=== PATIENT | female | born 1930 | race Caucasian/White ===

== ENCOUNTER 2017-09-04 13:28 | Inpatient (IN) | payer MEDICARE, OTHER ==
[2017-09-04 13:42] VITALS: BMI 23.6
--- NOTE | 2017-09-04 14:34 | PDOC ---
History of Present Illness - General Chief Complaint: Diarrhea Stated Complaint: WEAKNESS/DIARRHEA Time Seen by Provider: 09/04/17 13:36 - History of Present Illness Initial Comments: 09/04/17 14:28 The patient is an 86 year old female with a history of pulmonary HTN, HTN, alzheimer's disease, anemia, who presents for evaluation from an assisted living facility for increased weakness, lethargy and diarrhea. Due to the patient's dementia and hearing impairment, she is a difficult historian. Per EMS, the patient has been having diarrhea over the past 2 days. She began experiencing worsening weakness and appearing more lethargic and nausea and an episode of non-bilious, non-bloody vomiting per the facility today prompting them to call EMS for presentation to the ED for evaluation. The patient denies any fevers, chills, chest pain, SOB, or abdominal pain. Past History - Past Medical History Allergies/Adverse Reactions: Allergies Allergy/AdvReac Type Severity Reaction Status Date / Time Penicillins Allergy Intermediate Hives Verified 09/04/17 13:41 Sulfa (Sulfonamide Allergy Rash Verified 09/04/17 13:41 Antibiotics) Home Medications: Ambulatory Orders Amlodipine Besylate 5 mg PO DAILY 09/04/17 Ammonium Lactate Cream [Lac-Hydrin 12% *Cream*] 1 applic TP BID 09/04/17 Aspirin [ASA -] 81 mg PO DAILY 09/04/17 Donepezil HCl [Aricept -] 10 mg PO DAILY 09/04/17 Dorzolamide HCl [Trusopt 2%] 1 drop OU BID 09/04/17 Fluticasone Prop 0.05% Nasal [Flonase -] 1 - 2 spray NS DAILY 09/04/17 Furosemide 20 mg PO DAILY 09/04/17 Latanoprost 1 drop OP HS 09/04/17 Losartan Potassium 100 mg PO DAILY 09/04/17 Mirtazapine 15 mg PO HS 09/04/17 Potassium Chloride 20 meq PO DAILY 09/04/17 Risperidone 0.5 mg PO HS 09/04/17 Simvastatin 20 mg PO HS 09/04/17 Anemia: Yes Asthma: No Cancer: No Cardiac Disorders: No CVA: No COPD: No CHF: No Dementia: Yes (alzheimers) Diabetes: No GI Disorders: No Disorders: Yes (UTI) HTN: Yes Hypercholesterolemia: Yes Liver Disease: No Seizures: No Thyroid Disease: No - Surgical History Abdominal Surgery: Yes Appendectomy: Yes Cardiac Surgery: No Cholecystectomy: No Lung Surgery: No Neurologic Surgery: No Orthopedic Surgery: No - Suicide/Smoking/Psychosocial Hx Smoking History: Never smoked Have you smoked in the past 12 months: No Number of Cigarettes Smoked Daily: 0 If you are a former smoker, when did you quit?: 1939 Information on smoking cessation initiated: No Hx Alcohol Use: No Drug/Substance Use Hx: No Substance Use Type: Alcohol Hx Substance Use Treatment: No Review of Systems - Review of Systems Comments:: 09/04/17 14:34 Constitutional: Fatigue, lethargy. No fevers, chills, malaise HEENT: No Rhinorrhea, nasal congestion, visual changes Cardiovascular: No chest pain, syncope, palpitations, lightheadedness Respiratory: No Cough, SOB, Hemoptysis, Gastrointestinal: Nausea, Vomiting Diarrhea. No Abdominal pain, Constipation, Melena Genitourinary: No Dysuria, Frequency, Urgency, Hesitancy, Hematuria, Flank pain Musculoskeletal: No Myalgia, arthralgia Skin: No rashes, bruising, pallor Neurologic: No Headache, Dizziness, Numbness, Weakness, or Tingling *Physical Exam - Vital Signs Last Vital Signs Temp Pulse Resp BP Pulse Ox 98.6 F 89 18 155/77 96 09/04/17 13:33 09/04/17 13:33 09/04/17 13:33 09/04/17 13:33 09/04/17 13:33 - Physical Exam Comments: 09/04/17 14:35 General Appearance: Nourished. No Apparent Distress HEENT: EOMI, ROGER. No Pharyngeal Erythema, Tonsillar Exudate, Tonsillar Erythema Neck: No Cervical Lymphadenopathy Respiratory/Chest: Lungs Clear, Normal Breath Sounds. No Crackles, Rales, Rhonchi, Wheezing Cardiovascular: Regular Rhythm, Regular Rate. No Murmur, Gallops, Rubs Gastrointestinal/Abdominal: Normal Bowel Sounds, Soft. No Guarding, Rebound, Tenderness Musculoskeletal: No CVA Tenderness Extremity: Normal Capillary Refill Integumentary: Normal Color, Dry, Warm Neurologic: Oriented x2 , Alert, Normal Mood/Affect, Normal Response, ED Treatment Course - LABORATORY CBC & Chemistry Diagram: 09/04/17 14:40 09/04/17 14:40 - RADIOLOGY Radiology Studies Ordered: Category Date Time Status CHEST X-RAY PORTABLE* [RAD] Stat Radiology 09/04/17 14:12 Ordered Medical Decision Making - Medical Decision Making 09/04/17 14:38 The patient is an 86 year old female with a history of pulmonary HTN, HTN, alzheimer's disease, anemia, who presents for evaluation from an assisted living facility for increased weakness, lethargy and diarrhea. Differential includes but is not limited to: Infectious gastroenteritis, UTI, sepsis, pneumonia, metabolic derangement. Given the patient's history of diarrhea as well as worsening lethargy, we will obtain a sepsis work up to further evaluate including a cbc, cmp, lactate, troponin, chest plain film, and UA. We will be cautious giving the patient fluids given her history of pulmonary hypertension as well. We will continue to monitor and reassess. 09/04/17 15:59 Cbc, cmp, lactate, troponin, UA, are unremarkable. Chest plain film is unremarkable as read by our radiologist. We discussed the case with the patient 's primary care provider given her negative work up. He state that she is at an assisted living facility and needs to be able to ambulate in order to be sent back to the facility. He is comfortable taking the patient back if she is able to ambulate without difficulty. Otherwise, he believes she should be observed for dehydration. 09/04/17 16:03 We attempted to ambulate the patient and she was unable to ambulate unassisted and we do not feel she is safe to return home at this time. We believe that she requires observation admission for dehydration. We will discuss with the hospitalist team. 09/04/17 16:52 Discussed the case with the hospitalist team who accepted the admission. *DC/Admit/Observation/Transfer Diagnosis at time of Disposition: Dehydration - Discharge Dispostion Condition at time of disposition: Stable Admit: Yes
--- NOTE | 2017-09-04 14:35 | PDOC ---
Attending Attestation - Resident Resident Name: Rahul Haney - ED Attending Attestation I have performed the following: I have examined & evaluated the patient, The case was reviewed & discussed with the resident, I agree w/resident's findings & plan, Exceptions are as noted - HPI HPI: 09/04/17 14:29 86 year old c/ pmh alzheimer's disease, pulmonary hypertension, mitral valve insufficiency, anemia, gout, HLD, glaucoma, 1st degree AV block, hearing loss p/ w diarrhea and nausea/vomiting x 2 days. Denies fevers, but reports some chills. Denies abdominal pain. Pt is from long-term, but noted that she was feeling increasingly more weak and fatigue, and the pt was sent to the ED. - Physicial Exam PE: 09/04/17 14:31 GENERAL: Awake, alert, oriented x 2. in no acute distress. HEAD: No signs of trauma EYES: PERRLA, EOMI, sclera anicteric, conjunctiva clear ENT: Auricles normal inspection, hearing grossly normal, nares patent, oropharynx clear without exudates. NECK: Normal ROM, supple, no lymphadenopathy, JVD, or masses LUNGS: Breath sounds equal, clear to auscultation bilaterally. No wheezes, and no crackles HEART: Regular rate and rhythm, normal S1 and S2, no murmurs, rubs or gallops ABDOMEN: Soft, nontender, normoactive bowel sounds. No guarding, no rebound. No masses EXTREMITIES: Normal range of motion, No clubbing or cyanosis. No cords, erythema, or tenderness. Trace pedal edema b/l NEUROLOGICAL: Cranial nerves II through XII grossly intact. Normal speech, normal gait SKIN: Warm, Dry, normal turgor, no rashes or lesions noted. - Medical Decision Making 09/04/17 14:35 Vital Signs Temp Pulse Resp BP Pulse Ox 98.6 F 89 18 155/77 96 09/04/17 13:33 09/04/17 13:33 09/04/17 13:33 09/04/17 13:33 09/04/17 13:33 86-year-old female sent from long-term for diarrhea and vomiting. Patient likely with GI illness. Differential includes colitis, gastroenteritis. We'll obtain labs. Given her history of pulmonary hypertension, we'll need to be cautious about giving IV fluids. If the patient continues to vomit or diarrhea or has abnormal finding, patient should be mid to the hospital for further evaluation. Heart Score/ECG Review #1 ECG reviewed & interpreted by me at: 14:10 09/04/17 14:39 NSR 87 with 1st degree AV block, left axis deviation, submm STD V5, St and T wave abnormality, LVH (strain pattern?), QTC 507 msec
[2017-09-04 15:03] LABS: BASOPHIL 1.1 % (0-2.0); EOSINOPHIL 2.7 % (0-4.5); MCH 29.1 pg (25.7-33.7); MCHC 33.6 g/dl (32.0-36.0); MEAN CELL VOLUME 86.7 fl (80-96); MEAN PLT VOLUME 8.2 fl (7.5-11.1); NEUTROPHILS 71.2 % (42.8-82.8); PLATELET COUNT 324 K/MM3 (134-434); RDW 14.1 % (11.6-15.6); WHITE BLOOD COUNT 10.4 K/mm3 (4.0-10.0)
[2017-09-04 15:05] LABS: URINE APPEARANCE CLEAR; URINE BILIRUBIN NEGATIVE (NEGATIVE); URINE BLOOD NEGATIVE (NEGATIVE); URINE COLOR STRAW; URINE GLUCOSE (UA) NEGATIVE (NEGATIVE); URINE KETONE NEGATIVE (NEGATIVE); URINE NITRITE NEGATIVE (NEGATIVE); URINE UROBILINOGEN NEGATIVE mg/dL (0.2-1.0)
[2017-09-04 15:07] LABS: URINE PROTEIN 1+ (NEGATIVE)
[2017-09-04 15:08] LABS: URINE MUCUS RARE; URINE RBC <1 /hpf (0-3); URINE WBC 1 /hpf (3-5)
[2017-09-04 15:09] LABS: VENOUS BLOOD GAS HCO3 27.6 meq/L (19-25); VENOUS PH 7.46 (7.32-7.42)
[2017-09-04 15:16] LABS: INR 1.08 (0.82-1.09); PROTHROMBIN TIME (PATIENT) 12.2 SEC (9.98-11.88)
[2017-09-04 15:18] LABS: ACTIVATED PTT 31.2 SECONDS (26.9-34.4)
[2017-09-04 15:27] LABS: ALBUMIN 3.4 g/dl (3.4-5.0); ANION GAP 7 (8-16); BILIRUBIN,TOTAL 0.8 mg/dL (0.2-1.0); CO2 30 mmol/L (21-32); GLUCOSE,RANDOM 102 mg/dL (74-106); SGOT/AST 30 U/L (15-37); SGPT/ALT 31 U/L (12-78); TOT PROT 7.4 g/dl (6.4-8.2)
[2017-09-04 15:30] LABS: ALK PHOS 86 U/L (45-117); CPK 92 IU/L (26-192); TROPONIN I 0.05 ng/ml (0.00-0.05)
[2017-09-04] MEDS ORDERED: SODIUM CHLORIDE 250 ML IV STA (15:32)
[2017-09-04] MEDS ORDERED: PANTOPRAZOLE SODIUM 40 MG in SODIUM CHLORIDE 100 ML IVPB ONE (16:53)
--- NOTE | 2017-09-04 16:54 | PN ---
Physical Exam: SUBJECTIVE: Patient seen and examined OBJECTIVE: Vital Signs Period Temp Pulse Resp BP Sys/Matute Pulse Ox Last 24 Hr 98.6 F-99.6 F 89 18 155/77 96 GENERAL: The patient is awake, alert, and fully oriented, in no acute distress. HEAD: Normal with no signs of trauma. EYES: PERRL, extraocular movements intact, sclera anicteric, conjunctiva clear. No ptosis. ENT: Ears normal, nares patent, oropharynx clear without exudates, moist mucous membranes. NECK: Trachea midline, full range of motion, supple. LUNGS: Breath sounds equal, clear to auscultation bilaterally, no wheezes, no crackles, no accessory muscle use. HEART: Regular rate and rhythm, S1, S2 without murmur, rub or gallop. ABDOMEN: Soft, nontender, nondistended, normoactive bowel sounds, no guarding, no rebound, no hepatosplenomegaly, no masses. EXTREMITIES: 2+ pulses, warm, well-perfused, no edema. NEUROLOGICAL: Cranial nerves II through XII grossly intact. Normal speech, gait not observed. PSYCH: Normal mood, normal affect. SKIN: Warm, dry, normal turgor, no rashes or lesions noted Laboratory Results - last 24 hr 09/04/17 09/04/17 09/04/17 14:40 14:40 14:40 WBC 10.4 H RBC 4.14 Hgb 12.1 Hct 35.9 MCV 86.7 MCH 29.1 MCHC 33.6 RDW 14.1 Plt Count 324 MPV 8.2 Neutrophils % 71.2 Lymphocytes % 17.0 Monocytes % 8.0 Eosinophils % 2.7 Basophils % 1.1 PT with INR 12.20 H INR 1.08 PTT (Actin FS) 31.2 VBG pH POC VBG pCO2 POC VBG pO2 Mixed VBG HCO3 Sodium Potassium Chloride Carbon Dioxide Anion Gap BUN Creatinine Creat Clearance w eGFR Random Glucose Lactic Acid Calcium Total Bilirubin AST ALT Alkaline Phosphatase Creatine Kinase Troponin I Total Protein Albumin Urine Color Straw Urine Appearance Clear Urine pH 6.0 Urine Protein 1+ H Urine Glucose (UA) Negative Urine Ketones Negative Urine Blood Negative Urine Nitrite Negative Urine Bilirubin Negative Urine Urobilinogen Negative Urine RBC <1 Urine WBC 1 Ur Epithelial Cells Rare Urine Mucus Rare Blood Type Antibody Screen 09/04/17 09/04/17 09/04/17 14:40 14:40 14:40 WBC RBC Hgb Hct MCV MCH MCHC RDW Plt Count MPV Neutrophils % Lymphocytes % Monocytes % Eosinophils % Basophils % PT with INR INR PTT (Actin FS) VBG pH POC VBG pCO2 POC VBG pO2 Mixed VBG HCO3 Sodium 143 Potassium 3.4 L Chloride 106 Carbon Dioxide 30 Anion Gap 7 L BUN 18 Creatinine 1.0 Creat Clearance w eGFR 52.45 Random Glucose 102 Lactic Acid 1.1 Calcium 9.0 Total Bilirubin 0.8 AST 30 ALT 31 Alkaline Phosphatase 86 Creatine Kinase 92 Troponin I 0.05 Total Protein 7.4 Albumin 3.4 Urine Color Urine Appearance Urine pH Urine Protein Urine Glucose (UA) Urine Ketones Urine Blood Urine Nitrite Urine Bilirubin Urine Urobilinogen Urine RBC Urine WBC Ur Epithelial Cells Urine Mucus Blood Type O POSITIVE Antibody Screen Negative 09/04/17 14:56 WBC RBC Hgb Hct MCV MCH MCHC RDW Plt Count MPV Neutrophils % Lymphocytes % Monocytes % Eosinophils % Basophils % PT with INR INR PTT (Actin FS) VBG pH 7.46 H POC VBG pCO2 39.8 POC VBG pO2 43.8 Mixed VBG HCO3 27.6 H Sodium Potassium Chloride Carbon Dioxide Anion Gap BUN Creatinine Creat Clearance w eGFR Random Glucose Lactic Acid Calcium Total Bilirubin AST ALT Alkaline Phosphatase Creatine Kinase Troponin I Total Protein Albumin Urine Color Urine Appearance Urine pH Urine Protein Urine Glucose (UA) Urine Ketones Urine Blood Urine Nitrite Urine Bilirubin Urine Urobilinogen Urine RBC Urine WBC Ur Epithelial Cells Urine Mucus Blood Type Antibody Screen Active Medications Generic Name Dose Route Start Last Admin Trade Name Freq PRN Reason Stop Dose Admin Pantoprazole Sodium 40 mg/ 100 mls @ 200 mls/hr 09/04/17 16:53 Sodium Chloride IVPB 09/04/17 17:22 ONCE ONE Sodium Chloride 1,000 mls @ 50 mls/hr 09/04/17 17:00 Normal Saline - IV 09/05/17 16:53 [facility]IR [facility] ASSESSMENT/PLAN:
[2017-09-04] MEDS ORDERED: PANTOPRAZOLE SODIUM 100 ML IVPB ONE (17:08)
[2017-09-04 17:28] LABS: URINE LEUK ESTERASE Negative (NEGATIVE)
[2017-09-04] MEDS: SODIUM CHLORIDE 1,000 ML IV SCH (17:30)
[2017-09-04] MEDS ORDERED: POTASSIUM CHLORIDE ORAL LIQUID 20 MEQ/15 ML PO ONE (18:20)
--- NOTE | 2017-09-04 18:26 | HP ---
CHIEF COMPLAINT: diarrhea, weakness, lethargy PCP: Dr. Ledezma HISTORY OF PRESENT ILLNESS: Patient is an 86 year old female with a significant past medical history of pulmonary HTN, hypertension, HLD, glaucoma, 1st degree AV block, hearing loss alzheimer's disease and anemia. She presents to the ED from her assisted living facility for increased weakness, lethargy and diarrhea. Due to the patient's dementia and hearing impairment, she is not a good historian. Per ED , the patient has been having diarrhea over the past 2 days. She began experiencing worsening weakness and appearing more lethargic and nausea and an episode of non-bilious, non-bloody vomiting per ED notess. The facility then called EMS. The patient denies any fevers, chills, chest pain, SOB, or abdominal pain. ER course was notable for: (1) Trop 0.05 x 1 (2) WBC 10.4 (3) K. 3.4 (4) bilateral lower ext redness right>left, +chills (5) lactic acid 1.1 Recent Travel: PAST MEDICAL HISTORY: pulmonary HTN, hypertension, alzheimer's disease and anemia, 1st degree AV block, hearing loss alzheimer's disease and anemia. PAST SURGICAL HISTORY: Social History: Smoking: n/a Alcohol: n/a Drugs: n/a Family History: Allergies Penicillins Allergy (Intermediate, Verified 09/04/17 13:41) Hives Sulfa (Sulfonamide Antibiotics) Allergy (Verified 09/04/17 13:41) Rash HOME MEDICATIONS: Home Medications Medication Instructions Recorded Amlodipine Besylate 5 mg PO DAILY 09/04/17 Ammonium Lactate Cream [Lac-Hydrin 1 applic TP BID 09/04/17 12% *Cream*] Aspirin [ASA -] 81 mg PO DAILY 09/04/17 Donepezil HCl [Aricept -] 10 mg PO DAILY 09/04/17 Dorzolamide HCl [Trusopt 2%] 1 drop OU BID 09/04/17 Fluticasone Prop 0.05% Nasal 1 - 2 spray NS DAILY 09/04/17 [Flonase -] Furosemide 20 mg PO DAILY 09/04/17 Latanoprost 1 drop OP HS 09/04/17 Losartan Potassium 100 mg PO DAILY 09/04/17 Mirtazapine 15 mg PO HS 09/04/17 Potassium Chloride 20 meq PO DAILY 09/04/17 Risperidone 0.5 mg PO HS 09/04/17 Simvastatin 20 mg PO HS 09/04/17 REVIEW OF SYSTEMS CONSTITUTIONAL: chills, diaphoresis, generalized weakness, malaise, loss of appetite, weight change HEENT: Absent: rhinorrhea, nasal congestion, throat pain, throat swelling, difficulty swallowing, mouth swelling, ear pain, eye pain, visual changes CARDIOVASCULAR: Absent: chest pain, syncope, palpitations, irregular heart rate, lightheadedness , peripheral edema RESPIRATORY: Absent: cough, shortness of breath, dyspnea with exertion, orthopnea, wheezing, stridor, hemoptysis GASTROINTESTINAL: Absent: abdominal pain, constipation, melena, hematochezia GENITOURINARY: Absent: dysuria, frequency, urgency, hesitancy, hematuria, flank pain, genital pain MUSCULOSKELETAL: Absent: myalgia, arthralgia, joint swelling, back pain, neck pain SKIN: Absent: rash, itching, pallor HEMATOLOGIC/IMMUNOLOGIC: Absent: easy bleeding, easy bruising, lymphadenopathy, frequent infections ENDOCRINE: Absent: unexplained weight gain, unexplained weight loss, heat intolerance, cold intolerance NEUROLOGIC: Absent: headache, focal weakness or paresthesias, dizziness, unsteady gait, seizure, mental status changes, bladder or bowel incontinence PSYCHIATRIC: Absent: anxiety, depression, suicidal or homicidal ideation, hallucinations. PHYSICAL EXAMINATION GENERAL: Awake, alert, poor historian 2/2 to alzheimers dementia HEAD: Normal with no signs of trauma. EYES: Pupils equal, round and reactive to light, extraocular movements intact, sclera anicteric, conjunctiva clear. No lid lag. EARS, NOSE, THROAT: Ears normal, nares patent, oropharynx clear without exudates. Moist mucous membranes. NECK: Normal range of motion, supple without lymphadenopathy, JVD, or masses. LUNGS: scattered rhonchi thorughout lung penny, congestion ABDOMEN: Soft, nontender, mildly distended, +bowel sounds, no guarding, no rebound, no masses. No hepatomegaly or splenomegaly. MUSCULOSKELETAL: Normal range of motion at all joints. No bony deformities or tenderness. No CVA tenderness. UPPER EXTREMITIES: 2+ pulses, warm, well-perfused. No cyanosis. No clubbing. No peripheral edema. LOWER EXTREMITIES: +1 edema, RLE hot to touch with redness right lower ext, rule out cellulitis PSYCHIATRIC: Cooperative. Good eye contact. Appropriate mood and affect. ASSESSMENT/PLAN: Patient is an 86 year old female with a significant past medical history of pulmonary HTN, hypertension, HLD, glaucoma, 1st degree AV block, hearing loss alzheimer's disease and anemia. She presents to the ED from her assisted living facility for increased weakness, lethargy and diarrhea. Due to the patient's dementia and hearing impairment, she is not a good historian. Per ED , the patient has been having diarrhea over the past 2 days. She began experiencing worsening weakness and appearing more lethargic and nausea and an episode of non-bilious, non-bloody vomiting per ED notess. The facility then called EMS. The patient denies any fevers, chills, chest pain, SOB, or abdominal pain. She was also noted to have redness of bilateral lower extremities, right > left. Will order Vascular study and consult ID for possible cellulitis. GI: Dehydration secondary to diarrhea episodes/non bilious vomiting/nausea A/P: Patient reported to been having diarrhea over past 2 days, rule out infections process vs. c diff Stool studies, cdiff ordered, ova and parasites Clear liquid diet IV hydration, monitor labs replete electrolytes Zofran q6 scheduled Protonix daily Consider GI consult if symptoms persist Trend troponins ID: Rule out Cellulitis of RLE, acute A/P: Vascular study to rule out DVT ID consult for possible antibiotics Blood and urine cultures pending Cardiology: Pulmonary Hypertension/Hypertension A/P: continue home medications Monitor for fluid overload 1st degree AV block, chronic A/P: continue home medications F.E.N. Fluids NS @ 50cc/hr, cautiously: monitor for fluid overload Electrolyges: hypoK repleted Nutrition: clears Prophylaxis: DVT: Heparin BID GI: Protonix Disposition. Observation. full code. Visit type - Emergency Visit Emergency Visit: Yes ED Registration Date: 09/05/17 Care time: The patient presented to the Emergency Department on the above date and was hospitalized for further evaluation of their emergent condition. - New Patient This patient is new to me today: No - Critical Care Critical Care patient: No
[2017-09-04] MEDS ORDERED: ONDANSETRON 4 MG/2 ML VIAL ONE (19:47)
[2017-09-04] MEDS ORDERED: POTASSIUM CHLORIDE ORAL LIQUID 20 MEQ/15 ML ONE (19:48)
[2017-09-04] MEDS: ONDANSETRON 4 MG/2 ML VIAL IVPB SCH (19:52)
[2017-09-04] MEDS: ATORVASTATIN CA 10 MG TABLET (FP) PO SCH (22:15)
[2017-09-04] MEDS: MIRTAZAPINE 15 MG TABLET (FP) PO SCH (23:30)
[2017-09-04] MEDS: DORZOLAMIDE 2% HCL OPHTHALMIC SOLUTION 10 ML BOTTLE OU SCH (23:30)
[2017-09-04] MEDS: risperiDONE 0.5 MG TABLET (FP) PO SCH (23:30)
[2017-09-04] MEDS: LATANOPROST 0.005% OPHTH SOLN 2.5ML BOTTLE OD SCH (23:30)
[2017-09-05] MEDS: ONDANSETRON 4 MG/2 ML VIAL IVPB SCH ×3 (01:24→13:30)
--- NOTE | 2017-09-05 08:19 | PN ---
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, Physician Chief Complaint: ID Full noted dictated Poor historian - Current Medication List Current Medications: Active Medications Amlodipine Besylate (Norvasc -) 5 mg PO DAILY [facility] Aspirin (Asa -) 81 mg PO DAILY [facility] Atorvastatin Calcium (Lipitor -) 10 mg PO HS [facility] Last Admin: 09/04/17 22:15 Dose: 10 mg Donepezil HCl (Aricept -) 10 mg PO DAILY [facility] Dorzolamide HCl (Trusopt 2%) 1 drop OU BID [facility] Last Admin: 09/04/17 23:30 Dose: 1 drop Fluticasone Propionate (Flonase -) 1 - 2 spray NS DAILY [facility] Sodium Chloride (Normal Saline -) 1,000 mls @ 50 mls/hr IV ASDIR [facility] Stop: 09/05/17 16:53 Last Admin: 09/04/17 17:30 Dose: 50 mls/hr Pantoprazole Sodium 40 mg/ (Sodium Chloride) 100 mls @ 200 mls/hr IVPB DAILY [facility] Latanoprost (Xalatan 0.005% Eye Drops -) 1 drop OD HS [facility] Last Admin: 09/04/17 23:30 Dose: 1 drop Losartan Potassium (Losartan Potassium) 100 mg PO DAILY [facility] Mirtazapine (Remeron -) 15 mg PO HS [facility] Last Admin: 09/04/17 23:30 Dose: 15 mg Ondansetron HCl (Zofran Injection) 4 mg IVPB Q6H [facility] Last Admin: 09/05/17 01:24 Dose: 4 mg Risperidone (Risperdal -) 0.5 mg PO HS [facility] Last Admin: 09/04/17 23:30 Dose: 0.5 mg - Objective Vital Signs: Vital Signs Temperature 96.8 F L 09/05/17 00:30 Pulse Rate 101 H 09/05/17 07:24 Respiratory Rate 16 09/05/17 06:27 Blood Pressure 102/48 09/05/17 07:24 O2 Sat by Pulse Oximetry (%) 96 09/05/17 07:24 Labs: INR, PTT INR 1.08 (0.82-1.09) 09/04/17 14:40 Problem List - Problems (1) Dehydration Code(s): E86.0 - DEHYDRATION (2) Gastroenteritis Code(s): K52.9 - NONINFECTIVE GASTROENTERITIS AND COLITIS, UNSPECIFIED (3) Cellulitis Code(s): L03.90 - CELLULITIS, UNSPECIFIED Assessment/Plan Microbiology Laboratory Tests 09/04/17 09/04/17 14:40 14:40 WBC 10.4 H Hgb 12.1 Plt Count 324 Neutrophils % 71.2 Lymphocytes % 17.0 Eosinophils % 2.7 Creatinine 1.0 Assessment Gastronenteritis Exzema LE Plan No antibiotics IV hydration
[2017-09-05 08:35] LABS: MCH 29.6 pg (25.7-33.7); MCHC 33.3 g/dl (32.0-36.0); MEAN CELL VOLUME 89.1 fl (80-96); MEAN PLT VOLUME 8.8 fl (7.5-11.1); PLATELET COUNT 340 K/MM3 (134-434); RDW 14.3 % (11.6-15.6); WHITE BLOOD COUNT 12.3 K/mm3 (4.0-10.0)
[2017-09-05 08:45] LABS: CALCIUM 8.5 mg/dL (8.5-10.1)
[2017-09-05] MEDS ORDERED: ONDANSETRON 4 MG/2 ML VIAL ONE (08:49)
[2017-09-05 08:55] LABS: ALBUMIN 3.1 g/dl (3.4-5.0); ALK PHOS 84 U/L (45-117); ANION GAP 12 (8-16); BILIRUBIN,TOTAL 0.8 mg/dL (0.2-1.0); CO2 25 mmol/L (21-32); GLUCOSE,RANDOM 148 mg/dL (74-106); MAGNESIUM 1.9 mg/dL (1.8-2.4); PHOSPHOROUS 2.2 mg/dL (2.5-4.9); SGOT/AST 23 U/L (15-37); SGPT/ALT 26 U/L (12-78); TROPONIN I 0.21 ng/ml (0.00-0.05)
[2017-09-05] MEDS: PANTOPRAZOLE SODIUM 40 MG in SODIUM CHLORIDE 100 ML IVPB SCH (09:21)
[2017-09-05] MEDS ORDERED: LOSARTAN POTASSIUM 50 MG TABLET (FP) PO SCH (10:00)
--- NOTE | 2017-09-05 10:04 | CON.CARD ---
Consult Consult Specialty:: Cardiology Referred by:: Hospitalist Medicine Reason for Consultation:: +Trops - History of Present Illness Chief Complaint: Diarrhea History of Present Illness: Patient is an 86 year old female with a significant past medical history of pulmonary HTN, hypertension, HLD, diastolic dysfunction, glaucoma, 1st degree AV block, hearing loss alzheimer's disease and anemia presented to the ED from her assisted living facility for increased weakness, lethargy and diarrhea last 2 days. Due to the patient's dementia and hearing impairment, she is not a good historian. She began experiencing worsening weakness and appearing more lethargic and nausea and an episode of non-bilious, non-bloody vomiting per ED notes. Patient developed T>103 rectally. - History Source History Provided By: Medical Record Limitations to Obtaining History: Dementia - Alcohol/Substance Use Hx Alcohol Use: No - Smoking History Smoking history: Never smoked Have you smoked in the past 12 months: No Aproximately how many cigarettes per day: 0 If you are a former smoker, when did you quit?: 1939 Home Medications - Allergies Allergies/Adverse Reactions: Allergies Allergy/AdvReac Type Severity Reaction Status Date / Time Penicillins Allergy Intermediate Hives Verified 09/04/17 13:41 Sulfa (Sulfonamide Allergy Rash Verified 09/04/17 13:41 Antibiotics) - Home Medications Home Medications: Ambulatory Orders Amlodipine Besylate 5 mg PO DAILY 09/04/17 Ammonium Lactate Cream [Lac-Hydrin 12% *Cream*] 1 applic TP BID 09/04/17 Aspirin [ASA -] 81 mg PO DAILY 09/04/17 Donepezil HCl [Aricept -] 10 mg PO DAILY 09/04/17 Dorzolamide HCl [Trusopt 2%] 1 drop OU BID 09/04/17 Fluticasone Prop 0.05% Nasal [Flonase -] 1 - 2 spray NS DAILY 09/04/17 Furosemide 20 mg PO DAILY 09/04/17 Latanoprost 1 drop OP HS 09/04/17 Losartan Potassium 100 mg PO DAILY 09/04/17 Mirtazapine 15 mg PO HS 09/04/17 Potassium Chloride 20 meq PO DAILY 09/04/17 Risperidone 0.5 mg PO HS 09/04/17 Simvastatin 20 mg PO HS 09/04/17 Review of Systems Unable to obtain ROS, reason: Dementia Vital Signs: Vital Signs Temperature 96.8 F L 09/05/17 00:30 Pulse Rate 101 H 09/05/17 07:24 Respiratory Rate 16 09/05/17 06:27 Blood Pressure 102/48 09/05/17 07:24 O2 Sat by Pulse Oximetry (%) 96 09/05/17 07:24 Constitutional: Yes: No Distress, Calm Neck: Yes: Supple Respiratory: Yes: Regular, Diminished Gastrointestinal: Yes: Normal Bowel Sounds, Soft Cardiovascular: Yes: Regular Rate and Rhythm JVD: No Carotid Bruit: No Heart Sounds: Yes: S1, S2 Murmur: Yes: Systolic Murmur, Grade 1 Edema: No - Other Data Labs, Other Data: CBC, BMP 09/05/17 08:00 09/05/17 08:00 INR, PTT INR 1.08 (0.82-1.09) 09/04/17 14:40 Troponin, BNP 09/05/17 08:00 Troponin I 0.21 H Troponin, BNP 09/05/17 08:00 Troponin I 0.21 H NSR @ 87 1st deg AVB LVH with repol abnl Imaging - Results Chest X-ray: Report Reviewed (NAD, bibasilar ATX) Problem List - Problems (1) Dehydration Code(s): E86.0 - DEHYDRATION (2) Gastroenteritis Code(s): K52.9 - NONINFECTIVE GASTROENTERITIS AND COLITIS, UNSPECIFIED (3) Demand ischemia Code(s): I24.8 - OTHER FORMS OF ACUTE ISCHEMIC HEART DISEASE (4) Dementia in Alzheimer's disease Code(s): G30.9 - ALZHEIMER'S DISEASE, UNSPECIFIED F02.80 - DEMENTIA IN OTH DISEASES CLASSD ELSWHR W/O BEHAVRL DISTURB (5) Hypertensive cardiovascular disease Code(s): I11.9 - HYPERTENSIVE HEART DISEASE WITHOUT HEART FAILURE (6) Hyperlipidemia Code(s): E78.5 - HYPERLIPIDEMIA, UNSPECIFIED (7) Diastolic dysfunction without heart failure Code(s): I51.9 - HEART DISEASE, UNSPECIFIED (8) Fever Code(s): R50.9 - FEVER, UNSPECIFIED Qualifiers: Fever type: unspecified Qualified Code(s): R50.9 - Fever, unspecified; R50.9 - Fever, unspecified Assessment/Plan 1. Fever, Gastroenteritis 2. Demand ischemic injury 3. Hypertension 4. Pulmonary hypertension 5. Dementia of Alzheimers Type P:1. IVF, cycle enzymes to document peak 2. Echocardiogram to assess ventricular and valve fxn 3. Continue Norvasc 5 qd, ASA 81 qd, losartan 100 qd, Zocor 20 qhs, hold Lasix 20 qd for now 4. Empiric abx course pending C&S 5. Thank you for consultative opportunity
--- NOTE | 2017-09-05 10:55 | CONS ---
DATE OF CONSULTATION: HISTORY: This is an 86-year-old female with known Alzheimer dementia who I am asked specifically to see for possible cellulitis of the right lower extremity. She has a history of several comorbidities including Alzheimer, pulmonary hypertension, and chronic anemia and lives in an assisted living facility. She cannot give any history and is also hearing impaired, according to the notes. The history indicates that she had come with generalized weakness, lethargy, nausea, and at least 1 episode of vomiting. Mention is also made of diarrhea at the facility over the last 2 days. I am unaware as to whether or not she is on any antibiotics, though her medication list does not indicate any. While she was here, she was noted to have some erythema of her right leg, and a possibility of cellulitis was considered. She has no fever, chills, or other systemic complaints that I can ascertain. PAST MEDICAL HISTORY: As noted above. MEDICATIONS: Amlodipine, Aricept, Lasix, losartan, simvastatin, Risperidone. ALLERGIES: PENICILLIN. SOCIAL HISTORY: Resident of a long-term care facility. Former smoker having given this up many years ago. No alcohol history. FAMILY HISTORY: Unobtainable. REVIEW OF SYSTEMS: Respiratory: No cough or shortness of breath. Cardiac: No chest pain or palpitations. Gastrointestinal: As noted in history of present illness. Genitourinary: No dysuria, hematuria. PHYSICAL EXAMINATION: General: She is an elderly woman. Alert. Unable to answer questions. Vital Signs: Temperature 98.6, pulse 89, respirations 18, blood pressure 155/77. Neck: Supple. Lungs: Clear. Bilateral rhonchi. Heart: S1, S2. Regular rhythm. No audible murmur. Abdomen: Positive bowel sounds. Soft and nontender. No organomegaly. Extremities: No clubbing, cyanosis, or edema. A discrete, macular rash noted on both lower extremities right greater than left. Not warm. Not tender to touch. No wound noted. LABORATORY DATA: White count 10.4, hemoglobin 12.1, platelets 324. Normal differential. BUN 18, creatinine 1. Urinalysis: 1 RBC, 2 WBC. Two sets of blood cultures as of this morning no growth. Chest x-ray with no acute infiltrate. ASSESSMENT: An 86-year-old female with comorbidities including severe Alzheimer dementia with generalized weakness, lethargy, and diarrhea, possible gastroenteritis. Clinically she appears stable. The rash on her lower extremities seems more consistent with an eczema-type rash as opposed to cellulitis. Cultures have been sent, but at this point, I would observe her off of any antibiotic. I appreciate the kind referral. Please contact me for any further questions. RICKI MILLER M.D. [id number]
[2017-09-05] MEDS: DONEPEZIL HCL 10 MG TABLET (FP) PO SCH (11:03)
[2017-09-05] MEDS: DORZOLAMIDE 2% HCL OPHTHALMIC SOLUTION 10 ML BOTTLE OU SCH ×2 (11:04→23:20)
[2017-09-05] MEDS: amLODIPine BESYLATE 5 MG TABLET (FP) PO SCH (11:04)
[2017-09-05] MEDS: ASPIRIN 81 MG CHEWABLE TABLETS PO SCH (11:04)
--- NOTE | 2017-09-05 11:11 | PN ---
Physical Exam: SUBJECTIVE: Patient seen and examined in the cardiac cath awaiting a bed placement on tele. Called by RN after pt developed a fever, now more lethargic and oxygen saturations @ 85% room air overnight. OBJECTIVE: Patient responsive to verbal and tactile stimuli but more lethargic, seizure? CT scan of head ordered/neuro consulted Fever of 103F reported: Order>stat abg, stat chest xray, lactic acid, head CT to rule out stroke, EKG, Tylenol IV for fever. Repeat labs now. Pt trop noted to be 0.21 today, cardiology consulted. Spoke to ID, Vanco 1 gram x 1, cefepime 2gm x 1 for fever. Vital Signs Period Temp Pulse Resp BP Sys/Matute Pulse Ox Last 24 Hr 96.8 F-97.9 F 82-101 16-16 102-148/48-82 96-97 GENERAL: Awake, lethargic, poor historian 2/2 to alzheimers dementia, responsive to tactile stimuli, more lethargic HEAD: Normal with no signs of trauma. EARS, NOSE, THROAT: Ears normal, nares patent, oropharynx clear without exudates. Moist mucous membranes. NECK: Normal range of motion, supple without lymphadenopathy, JVD, or masses. LUNGS: scattered rhonchi thorughout lung penny, congestion ABDOMEN: Soft, nontender, mildly distended, +bowel sounds, no guarding, no rebound, no masses. No hepatomegaly or splenomegaly. MUSCULOSKELETAL: Normal range of motion at all joints. No bony deformities or tenderness. No CVA tenderness. UPPER EXTREMITIES: 2+ pulses, warm, well-perfused. No cyanosis. No clubbing. No peripheral edema. LOWER EXTREMITIES: +1 edema, RLE hot to touch with redness right lower ext, rule out cellulitis NEUROLOGICAL: lethargy Laboratory Results - last 24 hr 09/05/17 09/05/17 08:00 08:00 WBC 12.3 H RBC 4.25 Hgb 12.6 Hct 37.9 MCV 89.1 MCH 29.6 MCHC 33.3 RDW 14.3 Plt Count 340 MPV 8.8 Sodium 142 Potassium 3.5 Chloride 105 Carbon Dioxide 25 Anion Gap 12 BUN 14 D Creatinine 1.0 Creat Clearance w eGFR 52.45 Random Glucose 148 H D Calcium 8.5 Phosphorus 2.2 L Magnesium 1.9 Total Bilirubin 0.8 AST 23 D ALT 26 Alkaline Phosphatase 84 Troponin I 0.21 H Total Protein 7.0 Albumin 3.1 L Active Medications Generic Name Dose Route Start Last Admin Trade Name Gaye PRN Reason Stop Dose Admin Acetaminophen 1,000 mg 09/05/17 11:06 Ofirmev Injection - IVPB 09/05/17 11:07 ONCE ONE Amlodipine Besylate 5 mg 09/05/17 10:00 09/05/17 11:04 Norvasc - PO Not Given DAILY ASTRID Aspirin 81 mg 09/05/17 10:00 09/05/17 11:04 Asa - PO Not Given DAILY ASTRID Atorvastatin Calcium 10 mg 09/04/17 22:00 09/04/17 22:15 Lipitor - PO 10 mg HS ASTRID Administration Donepezil HCl 10 mg 09/05/17 10:00 09/05/17 11:03 Aricept - PO Not Given DAILY ASTRID Dorzolamide HCl 1 drop 09/04/17 22:00 09/05/17 11:04 Trusopt 2% OU 1 drop BID ASTRID Administration Fluticasone Propionate 1 - 2 spray 09/05/17 10:00 Flonase - NS DAILY ASTRID Sodium Chloride 1,000 mls @ 50 mls/hr 09/04/17 17:00 09/04/17 17:30 Normal Saline - IV 09/05/17 16:53 50 mls/hr ASDIR ASTRID Administration Pantoprazole Sodium 40 mg/ 100 mls @ 200 mls/hr 09/05/17 10:00 09/05/17 09:21 Sodium Chloride IVPB 200 mls/hr DAILY ASTRID Administration Latanoprost 1 drop 09/04/17 22:00 09/04/17 23:30 Xalatan 0.005% Eye Drops - OD 1 drop HS ASTRID Administration Losartan Potassium 100 mg 09/05/17 10:00 09/05/17 11:04 Cozaar - PO Not Given DAILY ASTRID Mirtazapine 15 mg 09/04/17 22:00 09/04/17 23:30 Remeron - PO 15 mg HS ASTRID Administration Ondansetron HCl 4 mg 09/04/17 19:00 09/05/17 08:50 Zofran Injection IVPB 4 mg Q6H ASTRID Administration Risperidone 0.5 mg 09/04/17 22:00 09/04/17 23:30 Risperdal - PO 0.5 mg HS ASTRID Administration ASSESSMENT/PLAN: Patient is an 86 year old female with a significant past medical history of pulmonary HTN, hypertension, HLD, glaucoma, 1st degree AV block, hearing loss alzheimer's disease and anemia. She presents to the ED from her assisted living facility for increased weakness, lethargy and diarrhea. Due to the patient's dementia and hearing impairment, she is not a good historian. Per ED , the patient has been having diarrhea over the past 2 days. She began experiencing worsening weakness and appearing more lethargic and nausea and an episode of non-bilious, non-bloody vomiting per ED notess. The facility then called EMS. The patient denies any fevers, chills, chest pain, SOB, or abdominal pain. She was also noted to have redness of bilateral lower extremities, right > left. Will order Vascular study and consult ID for possible cellulitis. ID: Sepsis, unknown source, acute A/P: Sepsis secondary to RLE cellulitis? vs. other source Blood and urine cultures pending Lactic acid within normal limits WBC trended up, then now normalized with repeat labs Patient did not tolerate vascular study yesterday, refused test Fever and tachycardia today, ID made aware, ordered Vancomycin 1 gram and Cefepime 2g x 1 ID following Neuro: Metabolic Encephalopathy likely secondary to fever, sepsis A/P: Patient more lethargic today, able to state name but easily falls back to sleep ABG reviewed, pulmonary consulted Head CT stat ordered and pending Neuro consulted, rule out seizure Pulmonary: Rule out aspiration pneumonia, shortness of breath overnight A/P: As per RN verbal report, pt oxygen levels were 85% room air overnight ABG ordered, reviewed, on 2 liters supplemental oxygen Pulm consulted GI: Dehydration secondary to diarrhea episodes/non bilious vomiting/nausea A/P: Patient reported to been having diarrhea over past 2 days, rule out infections process vs. c diff Stool studies, cdiff ordered, ova and parasites Monitor labs, replete electrolytes Zofran q6 scheduled Protonix daily Consider GI consult if symptoms persist Cardiology: Pulmonary Hypertension/Hypertension A/P: continue home medications Monitor for fluid overload 1st degree AV block, chronic A/P: continue home medications Elevated Troponins A/P: 0.05>0.21, trend 3rd EKG stat, monitor patient on tele Cardiology following F.E.N. Fluids: NPO until mental status improves, then swallow eval Electrolytes: hypoK repleted Nutrition: NPO Prophylaxis: DVT: Heparin BID GI: Protonix Disposition. Observation. full code. Visit type - Emergency Visit Emergency Visit: Yes ED Registration Date: 09/05/17 Care time: The patient presented to the Emergency Department on the above date and was hospitalized for further evaluation of their emergent condition. - New Patient This patient is new to me today: No - Critical Care Critical Care patient: No - Discharge Referral Referred to [facility] No
[2017-09-05] MEDS ORDERED: CEFEPIME HCL 2 GM VIAL (RESTRICTED TO ID) IVPB ONE (11:20)
[2017-09-05] MEDS ORDERED: ACETAMINOPHEN 1000 MG/100 ML VIAL (NON FORMULARY) IVPB ONE (12:30)
[2017-09-05] MEDS ORDERED: PNEUMOC 13-VAL CONJ-DIP CRM/PF 0.5 ML DISP.SYRIN IM ONE ×2 (12:31→23:30)
[2017-09-05] MEDS ORDERED: ACETAMINOPHEN INJECTION 100 ML IVPB ONE (12:40)
[2017-09-05] MEDS ORDERED: VANCOMYCIN 1 GRAM (PRE-DOCKED) 250 ML IVPB ONE (13:00)
[2017-09-05] MEDS ORDERED: CEFEPIME 2 GM in DEXTROSE 5%-WATER - 100 ML IVPB ONE (13:00)
[2017-09-05 13:17] LABS: MCH 28.9 pg (25.7-33.7); MCHC 33.2 g/dl (32.0-36.0); MEAN CELL VOLUME 87.2 fl (80-96); PLATELET COUNT 296 K/MM3 (134-434); RDW 14.1 % (11.6-15.6); WHITE BLOOD COUNT 9.8 K/mm3 (4.0-10.0)
[2017-09-05 13:41] LABS: ALBUMIN 2.7 g/dl (3.4-5.0); ANION GAP 12 (8-16); BILIRUBIN,TOTAL 0.8 mg/dL (0.2-1.0); CALCIUM 7.9 mg/dL (8.5-10.1); CO2 25 mmol/L (21-32); CREATININE 1.1 mg/dL (0.55-1.02); GLUCOSE,RANDOM 137 mg/dL (74-106); SGOT/AST 21 U/L (15-37); SGPT/ALT 25 U/L (12-78); TOT PROT 6.3 g/dl (6.4-8.2)
[2017-09-05 13:42] LABS: ALK PHOS 67 U/L (45-117)
[2017-09-05] MEDS: SODIUM CHLORIDE 1,000 ML IV SCH (14:37)
[2017-09-05 14:38] LABS: TOTAL CELLS COUNTED 100
[2017-09-05 14:39] LABS: METAMYELOCYTE 1 % (0-2); PLATELET ESTIMATE ADEQUATE (NORMAL)
--- NOTE | 2017-09-05 15:58 | CON.NEURO ---
Consult - Alcohol/Substance Use Hx Alcohol Use: No - Smoking History Smoking history: Never smoked Have you smoked in the past 12 months: No Aproximately how many cigarettes per day: 0 If you are a former smoker, when did you quit?: 1939 Home Medications - Allergies Allergies/Adverse Reactions: Allergies Allergy/AdvReac Type Severity Reaction Status Date / Time Penicillins Allergy Intermediate Hives Verified 09/04/17 13:41 Sulfa (Sulfonamide Allergy Rash Verified 09/04/17 13:41 Antibiotics) - Home Medications Home Medications: Ambulatory Orders Amlodipine Besylate 5 mg PO DAILY 09/04/17 Ammonium Lactate Cream [Lac-Hydrin 12% *Cream*] 1 applic TP BID 09/04/17 Aspirin [ASA -] 81 mg PO DAILY 09/04/17 Donepezil HCl [Aricept -] 10 mg PO DAILY 09/04/17 Dorzolamide HCl [Trusopt 2%] 1 drop OU BID 09/04/17 Fluticasone Prop 0.05% Nasal [Flonase -] 1 - 2 spray NS DAILY 09/04/17 Furosemide 20 mg PO DAILY 09/04/17 Latanoprost 1 drop OP HS 09/04/17 Losartan Potassium 100 mg PO DAILY 09/04/17 Mirtazapine 15 mg PO HS 09/04/17 Potassium Chloride 20 meq PO DAILY 09/04/17 Risperidone 0.5 mg PO HS 09/04/17 Simvastatin 20 mg PO HS 09/04/17 Physical Exam-Neuro Vital Signs: Vital Signs Temperature 103.4 F H 09/05/17 11:00 Pulse Rate 120 H 09/05/17 11:00 Respiratory Rate 19 09/05/17 11:00 Blood Pressure 150/73 09/05/17 11:00 O2 Sat by Pulse Oximetry (%) 96 09/05/17 07:24 Labs: CBC, BMP 09/05/17 13:05 09/05/17 13:05 INR, PTT INR 1.08 (0.82-1.09) 09/04/17 14:40 Assessment/Plan cc worsening of mental status HPI 86 year old female history of htn, hyperlipidemia, glaucoma , hearing loss. Patient is able to walk with walker at . she was brought in for right leg redness and swelling. She is very sleepy but aroussable. Spoke to Dr rodrigues , she had been foaming through mouth and there was no witnessed seizures. Patient is moving all etremity and denies any headhace. She has been started on antibiotics. She had fever of 103. Patient has been very sleepy.Patient has suspected diagnosis of parkinson disease but not being treated Ct head is unremarkable, and hospitalist was concern about seizure or stroke a PAST MEDICAL HISTORY: pulmonary HTN, hypertension, alzheimer's disease and anemia, 1st degree AV block, hearing loss alzheimer's disease and anemia. : Allergies Penicillins Allergy (Intermediate, Verified 09/04/17 13:41) Hives Sulfa (Sulfonamide Antibiotics) Allergy (Verified 09/04/17 13:41) Rash HOME MEDICATIONS: Home Medications Medication Instructions Recorded Amlodipine Besylate 5 mg PO DAILY 09/04/17 Ammonium Lactate Cream [Lac-Hydrin 1 applic TP BID 09/04/17 12% *Cream*] Aspirin [ASA -] 81 mg PO DAILY 09/04/17 Donepezil HCl [Aricept -] 10 mg PO DAILY 09/04/17 Dorzolamide HCl [Trusopt 2%] 1 drop OU BID 09/04/17 Fluticasone Prop 0.05% Nasal 1 - 2 spray NS DAILY 09/04/17 [Flonase -] Furosemide 20 mg PO DAILY 09/04/17 Latanoprost 1 drop OP HS 09/04/17 Losartan Potassium 100 mg PO DAILY 09/04/17 Mirtazapine 15 mg PO HS 09/04/17 Potassium Chloride 20 meq PO DAILY 09/04/17 Risperidone 0.5 mg PO HS 09/04/17 Simvastatin 20 mg PO HS 09/04/17 ROS revied in chart Neurological Examination Alert able to follow simple command, she is sleepy and speech is normal eomi, no face asymmetry, eomi and moving all extremity, neck is supple moving all extremity sensation is normal she has right leg swelling and redness and very warm extremity Ct head is unremarkable , showed white matter disease Assessment-- Worsening of mental status , most likely delirium due to high grade fever and underlying dementia. Clinically less likely to be meningitis, stroke or status epilepticus Plan continue antibiotic as per ID - mri of brain and eeg for stroke and less likely to be seizure - if not improving and continue to have fever and delirium consider spinal tap - continue supportive treatment Thank nolan Glaser MD
--- NOTE | 2017-09-05 16:19 | PN ---
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 (short form) - Note 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: PULMONARY CONSULTATION DICTATED 09/05/17 IMP ACUTE HYPOXEMIC RESPIRATORY FAILURE LIKELY ASPIRATION PNEUMONIA ALTERED MENTAL STATUS SECONDARY TO TOXIC METABOLIC ENCEPHALOPATHY GASTROENTERITIS CELLULITIS ALZHEIMERS DEMENTIA PARKINSONS DEHYDRATION PLAN IVF ANTIBIOTICS INHALED BRONCHODILATORS ABG O2 F/U CHEST X-RAY ASPIRATION PRECAUTIONS CULTURES DR REBOLLAR Problem List - Problems (1) Cellulitis Code(s): L03.90 - CELLULITIS, UNSPECIFIED (2) Dehydration Code(s): E86.0 - DEHYDRATION (3) Dementia in Alzheimer's disease Code(s): G30.9 - ALZHEIMER'S DISEASE, UNSPECIFIED F02.80 - DEMENTIA IN OTH DISEASES CLASSD ELSWHR W/O BEHAVRL DISTURB (4) Diastolic dysfunction without heart failure Code(s): I51.9 - HEART DISEASE, UNSPECIFIED (5) Gastroenteritis Code(s): K52.9 - NONINFECTIVE GASTROENTERITIS AND COLITIS, UNSPECIFIED (6) Hyperlipidemia Code(s): E78.5 - HYPERLIPIDEMIA, UNSPECIFIED (7) Acute respiratory failure with hypoxia Code(s): J96.01 - ACUTE RESPIRATORY FAILURE WITH HYPOXIA (8) Pneumonia Code(s): J18.9 - PNEUMONIA, UNSPECIFIED ORGANISM
[2017-09-05 17:03] LABS: ARTERIAL BLD GAS O2 SATURATION 85.1 % (90-98.9); ARTERIAL BLOOD GAS BASE EXCESS 2.4 meq/l (-2-2); ARTERIAL BLOOD GAS HCO3 25.9 meq/L (22-26); ARTERIAL BLOOD GAS PO2 50.8 mmHg (68-100); ARTERIAL BLOOD GAS pH 7.46 (7.35-7.45)
[2017-09-05 17:04] LABS: ALLENS TEST POSITIVE; ART PUNCT SITE LEFT RADIAL; LPM/O2% 3L; PT. ON O2? YES; TYPE OF O2 N/C
[2017-09-05] MEDS ORDERED: KCL 10 MEQ IVPB 100 ML IVPB ONE (18:46)
[2017-09-05] MEDS: KCL 10 MEQ IVPB 100 ML IVPB SCH ×2 (18:54→23:50)
[2017-09-05 21:24] LABS: ALBUMIN 2.8 g/dl (3.4-5.0); ALK PHOS 73 U/L (45-117); ANION GAP 10 (8-16); BILIRUBIN,TOTAL 0.9 mg/dL (0.2-1.0); CALCIUM 8.2 mg/dL (8.5-10.1); CO2 26 mmol/L (21-32); CREATININE 1.3 mg/dL (0.55-1.02); GLUCOSE,RANDOM 175 mg/dL (74-106); SGOT/AST 35 U/L (15-37); SGPT/ALT 26 U/L (12-78); TOT PROT 6.7 g/dl (6.4-8.2)
[2017-09-05] MEDS: ACETAMINOPHEN 1000 MG/100 ML VIAL (NON FORMULARY) IVPB PRN (21:58)
[2017-09-05] MEDS ORDERED: HEPARIN NA (PORCINE) 5,000 UNITS/ML 1ML VIAL SQ SCH (22:00)
--- NOTE | 2017-09-05 22:08 | HOSP ---
Subjective - Review of Symptoms Events since last encounter: Hospitalist Encounter Notified by RN that the patient was received with an Spo2 of 79% on RA, and was placed on Venturi Mas, Spo2 now 88%,Trop I- 0.67 Ordered stat ABG, EKG, Heparin Protocol, Tele monitoring Will hold Losartan secondary to Cr trending up Patient refused her Doppler study of RLE r/o DVT Wells Score 4 Consider VQ Scan Arrived to bedside, patient is awake and alert- baseline, denies chest pain and SOB EKG reviewed no change compared to prior study ABG-reviewed- mixed disorder with improvement compared to last study Will continue to monitor, and inform Day Team in am Physical Examination Vital Signs: Vital Signs Temperature 99.6 F 09/05/17 17:00 Pulse Rate 91 H 09/05/17 20:50 Respiratory Rate 19 09/05/17 20:50 Blood Pressure 132/65 09/05/17 20:50 O2 Sat by Pulse Oximetry (%) 97 09/05/17 20:50 Constitutional: Yes: Well Nourished, No Distress, Calm Eyes: Yes: WNL, Conjunctiva Clear, EOM Intact, PERRL HENT: Yes: WNL, Atraumatic, Normocephalic Neck: Yes: WNL, Supple, Trachea Midline Cardiovascular: Yes: Pulse Irregular, S1, S2 Respiratory: Yes: WNL, Regular, CTA Bilaterally, On Venti-Mask Musculoskeletal: Yes: Joint Swelling (RLE) Extremities: Yes: Erythema (RLE), Other (warmth and swelling to RLE) Edema: Yes Edema: RLE: 1+ Peripheral Pulses WNL: Yes Neurological: Yes: Alert (baseline), Cran Nerves II-XII Intact Psychiatric: Yes: WNL, Alert Labs: CBC, BMP 09/05/17 13:05 09/05/17 20:40 Troponin, BNP 09/05/17 09/05/17 08:00 20:40 Troponin I 0.21 H 0.67 H* Current Medications Generic Name Dose Route Start Last Admin Trade Name Freq PRN Reason Stop Dose Admin Acetaminophen 1,000 mg 09/05/17 17:36 09/05/17 21:58 Ofirmev Injection - IVPB 09/06/17 17:37 1,000 mg Q8H PRN Administration FEVER OR PAIN Albuterol/Ipratropium 1 amp 09/05/17 16:22 Duoneb - NEB Q4H PRN SHORTNESS OF BREATH Amlodipine Besylate 5 mg 09/05/17 10:00 09/05/17 11:04 Norvasc - PO Not Given DAILY ASTRID Aspirin 81 mg 09/05/17 10:00 09/05/17 11:04 Asa - PO Not Given DAILY ASTRID Atorvastatin Calcium 10 mg 09/04/17 22:00 09/04/17 22:15 Lipitor - PO 10 mg HS ASTRID Administration Donepezil HCl 10 mg 09/05/17 10:00 09/05/17 11:03 Aricept - PO Not Given DAILY ASTRID Dorzolamide HCl 1 drop 09/04/17 22:00 09/05/17 11:04 Trusopt 2% OU 1 drop BID ASTRID Administration Fluticasone Propionate 1 - 2 spray 09/05/17 10:00 Flonase - NS DAILY ASTRID Heparin Sodium (Porcine) 1,000 unit 09/05/17 22:14 Heparin - IVPUSH PRN PRN Heparin Heparin Sodium (Porcine) 5,000 unit 09/05/17 22:14 Heparin - IVPUSH PRN PRN Heparin Pantoprazole Sodium 40 mg/ 100 mls @ 200 mls/hr 09/05/17 10:00 09/05/17 09:21 Sodium Chloride IVPB 200 mls/hr DAILY ASTRID Administration Ceftriaxone Sodium 2 gm/ 100 mls @ 200 mls/hr 09/06/17 10:00 Dextrose IVPB DAILY ASTRID Heparin Sodium/Dextrose 500 mls @ 16 mls/hr 09/05/17 22:15 Heparin Infusion - IVPB TITR ASTRID Protocol 800 UNITS/HR Latanoprost 1 drop 09/04/17 22:00 09/04/17 23:30 Xalatan 0.005% Eye Drops - OD 1 drop HS ASTRID Administration Losartan Potassium 100 mg 09/05/17 10:00 09/05/17 11:04 Cozaar - PO Not Given DAILY ASTRID Mirtazapine 15 mg 09/04/17 22:00 09/04/17 23:30 Remeron - PO 15 mg HS ASTRID Administration Pneumococcal 13-Valent Conj Vacc 0.5 ml 09/05/17 12:31 Prevnar 13 Syringe - IM 09/05/17 12:32 .ONCE ONE Risperidone 0.5 mg 09/04/17 22:00 09/04/17 23:30 Risperdal - PO 0.5 mg HS ASTRID Administration Critical Care Total Critical Care Time (in minutes): 32 Critical Care Statement: The care of this patient involved high complexity decision making to prevent further life threatening deterioration of the patient 's condition and/or to evaluate & treat vital organ system(s) failure or risk of failure.
[2017-09-05] MEDS ORDERED: HEPARIN NA (PORCINE) 5,000 UNITS/ML 1ML VIAL IVPUSH PRN ×2 (22:14)
[2017-09-05 22:28] LABS: ARTERIAL BLD GAS O2 SATURATION 89.8 % (90-98.9); ARTERIAL BLOOD GAS BASE EXCESS 2.3 meq/l (-2-2); ARTERIAL BLOOD GAS HCO3 25.2 meq/L (22-26); ARTERIAL BLOOD GAS PO2 55.2 mmHg (68-100); ARTERIAL BLOOD GAS pH 7.47 (7.35-7.45)
[2017-09-05 22:31] LABS: ALLENS TEST POSITIVE; ART PUNCT SITE RIGHT RADIAL; PT. ON O2? YES
[2017-09-05 22:32] LABS: LPM/O2% 50%; TYPE OF O2 VENTI MASK
[2017-09-05] MEDS: HEPARIN INFUSION - 500 ML IVPB SCH (22:47)
--- NOTE | 2017-09-05 22:49 | CONS ---
DATE OF CONSULTATION: 09/05/2017 PULMONARY CONSULTATION REFERRING PHYSICIAN: Felipe Rodriguez N.P. HISTORY OF PRESENT ILLNESS: The patient is an 86-year-old white female with a past medical history of pulmonary hypertension, hypertension, hyperlipidemia, glaucoma, first-degree AV block, Parkinson dementia, anemia, transferred to [facility] from an assisted living facility secondary to increasing weakness, lethargy, and diarrhea. Patient apparently in the emergency room, she was apparently noted to have diarrhea over the past 2 days. Apparently at the care home she has grown progressively more lethargic and having episodes and nonbilious vomiting. The patient presented to the emergency room. While in the emergency room, she administered IV fluids and antibiotic therapy. Patient was also noted to be hypoxic with O2 saturation of 87% on room air, for which she is placed on supplemental O2. Patient underwent a CT scan of the head which revealed no acute disease. There is no acute bleed or infarct. It was noted she most likely had toxic metabolic encephalopathy. Patient apparently is a nonsmoker. No further history is available at this time. PAST MEDICAL HISTORY: Again includes pulmonary hypertension, hypertension, hyperlipidemia, diastolic dysfunction, glaucoma, first-degree AV block, hearing loss, Alzheimer dementia, Parkinson's. REVIEW OF SYSTEMS: Unable to obtain. CURRENT MEDICATIONS: Include ceftriaxone, Zofran, vancomycin, heparin, Remeron, Risperdal, Trusopt, Flonase, Norvasc, normal saline, Lipitor, aspirin, Aricept, , pantoprazole, KCl. PHYSICAL EXAMINATION: General: The patient is an elderly white female, well developed, well nourished, lethargic, in no acute respiratory distress. She is currently T-max 103.4, respiratory rate is 120, O2 saturation is 89 on 2 L, blood pressure 150/73. HEENT: Head is normocephalic, atraumatic. Neck: Supple. Heart: Tachycardic. Normal S1, S2. Chest: Bilateral rhonchi, no rales. Abdomen: Soft. Bowel sounds positive. Extremities: No cyanosis, edema. LABORATORY: WBC is 9.8, hemoglobin 11.5, hematocrit 34.5, with a platelet count of 296,000. INR is 1.08. Venous blood gas: pH of 7.46, pCO2 of 39, pO2 of 43. Chemistries: lactate level 1.5, potassium 3.2, BUN 18, creatinine 1.1. Chest x-ray reveals looks like a possible right lower lobe infiltrate right upper lobe. IMPRESSION: 1. Acute hypoxemic respiratory failure. 2. Fever, nausea, vomiting. Possible gastroenteritis. 3. Likely aspiration. 4. Altered mental status secondary to toxic metabolic encephalopathy secondary to above. 5. History of pulmonary hypertension. 6. Dementia. 7. Parkinson's. PLAN: IV fluids. Supplemental O2. Antibiotic therapy. Followup chest x-ray. Aspiration precautions. Monitor mental status. Monitor neurological status. Cultures. Supplemental O2 to maintain O2 saturation of 90% or greater. Inhaled bronchodilators pDel [id number]
[2017-09-05] MEDS: ALBUTEROL SO4 2.5/IPRATROPIUM 0.5 INH SOL 3 ML VIAL.NEB. NEB PRN (22:54)
[2017-09-05] MEDS: ATORVASTATIN CA 10 MG TABLET (FP) PO SCH (23:19)
[2017-09-05] MEDS: LATANOPROST 0.005% OPHTH SOLN 2.5ML BOTTLE OD SCH (23:20)
[2017-09-05] MEDS: MIRTAZAPINE 15 MG TABLET (FP) PO SCH (23:20)
[2017-09-05] MEDS: risperiDONE 0.5 MG TABLET (FP) PO SCH (23:20)
[2017-09-05] MEDS ORDERED: KCL 10 MEQ IVPB 100 ML IVPB SCH (23:30)
[2017-09-06] MEDS: ALBUTEROL SO4 2.5/IPRATROPIUM 0.5 INH SOL 3 ML VIAL.NEB. NEB PRN (05:35)
[2017-09-06] MEDS: ACETAMINOPHEN 1000 MG/100 ML VIAL (NON FORMULARY) IVPB PRN (05:36)
--- NOTE | 2017-09-06 07:16 | EKG ---
Test Reason : Blood Pressure : / mmHG Vent. Rate : 087 BPM Atrial Rate : 087 BPM P-R Int : 278 ms QRS Dur : 116 ms QT Int : 422 ms P-R-T Axes : 087 -37 179 degrees QTc Int : 507 ms SINUS RHYTHM WITH 1ST DEGREE A-V BLOCK LEFT AXIS DEVIATION INCOMPLETE RIGHT BUNDLE BRANCH BLOCK LEFT VENTRICULAR HYPERTROPHY WITH QRS WIDENING ABNORMAL ECG WHEN COMPARED WITH ECG OF 15-FEB-2008 07:15, PA INTERVAL HAS INCREASED INCOMPLETE RIGHT BUNDLE BRANCH BLOCK IS SEEN Confirmed by AUNDREA JOHNSTON MD ([id number]) on 09/06/2017 7:15:42 AM Referred By: Confirmed By:AUNDREA JOHNSTON MD
--- NOTE | 2017-09-06 07:44 | PN ---
Physical Exam: INFECTIOUS DISEASE SUBJECTIVE: Continued to be febrile overnight Tmax 100.6. Patient became hypoxic overnight, requiring ventimask. Patient states that her breathing is okay, she admits to coughing at times when she eats. Denies CP. OBJECTIVE: Vital Signs Period Temp Pulse Resp BP Sys/Matute Pulse Ox Last 24 Hr 98.1 F-100.6 F 91-101 19-20 132-149/60-69 90-97 GEN: Lying in bed with ventimask, responds to questions but visibly tired, dried saliva near mouth HEENT: PERRLA CV: S1, S2, 3/6 systolic murmur LUNG: R sided crackles/rhonchi ABD: Soft, NT, ND, normoactive BS MSK: No edema, mild BLLE pink/red rash Active Medications Generic Name Dose Route Start Last Admin Trade Name Freq PRN Reason Stop Dose Admin Acetaminophen 1,000 mg 09/05/17 17:36 09/06/17 05:36 Ofirmev Injection - IVPB 09/06/17 17:37 1,000 mg Q8H PRN Administration FEVER OR PAIN Albuterol/Ipratropium 1 amp 09/05/17 16:22 09/06/17 05:35 Duoneb - NEB 1 amp Q4H PRN Administration SHORTNESS OF BREATH Amlodipine Besylate 5 mg 09/05/17 10:00 09/05/17 11:04 Norvasc - PO Not Given DAILY ASTRID Aspirin 81 mg 09/05/17 10:00 09/05/17 11:04 Asa - PO Not Given DAILY ASTRID Atorvastatin Calcium 10 mg 09/04/17 22:00 09/05/17 23:19 Lipitor - PO Not Given HS ASTRID Donepezil HCl 10 mg 09/05/17 10:00 09/05/17 11:03 Aricept - PO Not Given DAILY ASTRID Dorzolamide HCl 1 drop 09/04/17 22:00 09/05/17 23:20 Trusopt 2% OU Not Given BID ASTRID Fluticasone Propionate 1 - 2 spray 09/05/17 10:00 Flonase - NS DAILY ASTRID Heparin Sodium (Porcine) 1,000 unit 09/05/17 22:14 Heparin - IVPUSH PRN PRN Heparin Heparin Sodium (Porcine) 5,000 unit 09/05/17 22:14 Heparin - IVPUSH PRN PRN Heparin Pantoprazole Sodium 40 mg/ 100 mls @ 200 mls/hr 09/05/17 10:00 09/05/17 09:21 Sodium Chloride IVPB 200 mls/hr DAILY ASTRID Administration Ceftriaxone Sodium 2 gm/ 100 mls @ 200 mls/hr 09/06/17 10:00 Dextrose IVPB DAILY ASTRID Heparin Sodium/Dextrose 500 mls @ 16 mls/hr 09/05/17 22:15 09/05/17 22:47 Heparin Infusion - IVPB 16 mls/hr TITR ASTRID Administration Protocol 800 UNITS/HR Latanoprost 1 drop 09/04/17 22:00 09/05/17 23:20 Xalatan 0.005% Eye Drops - OD Not Given HS ASTRID Losartan Potassium 100 mg 09/05/17 10:00 09/05/17 11:04 Cozaar - PO Not Given DAILY ASTRID Mirtazapine 15 mg 09/04/17 22:00 09/05/17 23:20 Remeron - PO Not Given HS ASTRID Pneumococcal 13-Valent Conj Vacc 0.5 ml 09/06/17 09:00 Prevnar 13 Syringe - IM 09/06/17 09:01 .ONCE ONE Risperidone 0.5 mg 09/04/17 22:00 09/05/17 23:20 Risperdal - PO Not Given HS [facility] Microbiology 09/04/17 14:40 Urine - Urine Clean Catch Urine Culture - Final NO GROWTH OBTAINED 09/04/17 14:40 Blood - Peripheral Venous Blood Culture - Preliminary NO GROWTH OBTAINED AFTER 24 HOURS, INCUBATION TO CONTINUE FOR 4 DAYS. 09/04/17 14:40 Blood - Peripheral Venous Blood Culture - Preliminary NO GROWTH OBTAINED AFTER 24 HOURS, INCUBATION TO CONTINUE FOR 4 DAYS. ASSESSMENT/PLAN: Pt is an 86yo F with PMHx of Pulmonary HTN, HLD, 1st degree AVB, hearing loss, Alzheimers, who presented from [place] for increasing weakness, lethargy, diarrhea. # Possible Aspiration PNA - CXR reveals new RUL and RLL infiltrates + febrile - Switch abx to Ceftriaxone/Flagyl - Continue supportive O2 Discussed w/ Dr Orourke, will follow. Tawny Timmons MD - PGY1 Infectious Disease Visit type - Emergency Visit Emergency Visit: No - New Patient This patient is new to me today: No - Critical Care Critical Care patient: No
[2017-09-06 07:45] LABS: BASOPHIL 0.7 % (0-2.0); EOSINOPHIL 0.6 % (0-4.5); MCH 30.3 pg (25.7-33.7); MCHC 34.5 g/dl (32.0-36.0); MEAN PLT VOLUME 8.9 fl (7.5-11.1); NEUTROPHILS 77.4 % (42.8-82.8); PLATELET COUNT 245 K/MM3 (134-434); RDW 14.2 % (11.6-15.6); WHITE BLOOD COUNT 9.8 K/mm3 (4.0-10.0)
[2017-09-06 08:31] LABS: ALBUMIN 2.3 g/dl (3.4-5.0); ANION GAP 9 (8-16); CALCIUM 7.4 mg/dL (8.5-10.1); CO2 26 mmol/L (21-32); GLUCOSE,RANDOM 119 mg/dL (74-106)
[2017-09-06 08:37] LABS: ALK PHOS 58 U/L (45-117); BILIRUBIN,TOTAL 0.7 mg/dL (0.2-1.0); CPK 331 IU/L (26-192); CREATININE 1.3 mg/dL (0.55-1.02); SGOT/AST 33 U/L (15-37); SGPT/ALT 22 U/L (12-78); TOT PROT 5.6 g/dl (6.4-8.2); TROPONIN I 0.49 ng/ml (0.00-0.05)
--- NOTE | 2017-09-06 08:55 | PN ---
Physical Exam: SUBJECTIVE: Patient seen and examined at the bedside. Remains lethargic, arousable. Now on a venti mask for increased shortness of breath She denies any pain on exam, but easily falls back to sleep after answering. As per RN verbal report, patient was agitated, restless overnight. OBJECTIVE: Troponins trended up 0.05>.21>0.67, will trend to document peak Placed on Heparin drip by night team Potassium @3.3, repleted with 2 K riders, D5 NS/10meq @75cc/hr For swallow evaluation once more stable engine monitor: 1st degree AV block, heart rate 60s Vital Signs Period Temp Pulse Resp BP Sys/Matute Pulse Ox Last 24 Hr 98.1 F-100.6 F 91-101 19-20 132-149/60-69 90-97 GENERAL: Remains lethargic, poor historian 2/2 to alzheimers dementia, responsive to tactile stimuli HEAD: Normal with no signs of trauma, CT head negative EARS, NOSE, THROAT: Ears normal, nares patent, oropharynx clear without exudates. Moist mucous membranes. NECK: Normal range of motion, supple without lymphadenopathy, JVD, or masses. LUNGS: scattered rhonchi thorughout lung penny, congestion ABDOMEN: Soft, nontender, mildly distended, +bowel sounds, no guarding, no rebound, no masses. No hepatomegaly or splenomegaly. MUSCULOSKELETAL: Normal range of motion at all joints. No bony deformities or tenderness. No CVA tenderness. UPPER EXTREMITIES: 2+ pulses, warm, well-perfused. No cyanosis. No clubbing. No peripheral edema. LOWER EXTREMITIES: +1 edema, RLE warm to touch with redness right lower ext, rule out cellulitis/pt refused doppler NEUROLOGICAL: lethargic, hx of alzhemiers dementia Laboratory Results - last 24 hr 09/05/17 09/05/17 09/05/17 13:05 13:05 13:05 WBC 9.8 RBC 3.96 Hgb 11.5 Hct 34.5 MCV 87.2 MCH 28.9 MCHC 33.2 RDW 14.1 Plt Count 296 MPV 8.0 Total Counted 100 Neutrophils % No Result Required. Neutrophils % (Manual) 78 Band Neuts % (Manual) 5 Lymphocytes % No Result Required. Lymphocytes % (Manual) 5 L Monocytes % Monocytes % (Manual) 11 H Eosinophils % Basophils % Platelet Estimate Adequate PTT (Actin FS) Puncture Site ABG pH ABG pCO2 at Pt Temp ABG pO2 at Pt Temp ABG HCO3 ABG O2 Sat (Measured) ABG O2 Content ABG Base Excess Gwyn Test O2 Delivery Device Oxygen Flow Rate PEEP Sodium 144 Potassium 3.2 L Chloride 107 Carbon Dioxide 25 Anion Gap 12 BUN 18 D Creatinine 1.1 H Creat Clearance w eGFR 46.98 Random Glucose 137 H Lactic Acid 1.5 Calcium 7.9 L Total Bilirubin 0.8 AST 21 ALT 25 Alkaline Phosphatase 67 D Creatine Kinase CK-MB (CK-2) Troponin I C-Reactive Protein Total Protein 6.3 L Albumin 2.7 L 09/05/17 09/05/17 09/05/17 17:00 20:40 20:40 WBC RBC Hgb Hct MCV MCH MCHC RDW Plt Count MPV Total Counted Neutrophils % Neutrophils % (Manual) Band Neuts % (Manual) Lymphocytes % Lymphocytes % (Manual) Monocytes % Monocytes % (Manual) Eosinophils % Basophils % Platelet Estimate PTT (Actin FS) Puncture Site Left radial ABG pH 7.46 H ABG pCO2 at Pt Temp 37.3 ABG pO2 at Pt Temp 50.8 L ABG HCO3 25.9 ABG O2 Sat (Measured) 85.1 L ABG O2 Content 13.0 L ABG Base Excess 2.4 H Gwyn Test Positive O2 Delivery Device N/c Oxygen Flow Rate 3l PEEP 0.0 Sodium 141 Potassium 3.6 Chloride 105 Carbon Dioxide 26 Anion Gap 10 BUN 21 H Creatinine 1.3 H Creat Clearance w eGFR 38.75 Random Glucose 175 H D Lactic Acid Calcium 8.2 L Total Bilirubin 0.9 AST 35 D ALT 26 Alkaline Phosphatase 73 Creatine Kinase CK-MB (CK-2) Troponin I C-Reactive Protein 16.7 H Total Protein 6.7 Albumin 2.8 L 09/05/17 09/05/17 09/05/17 20:40 22:10 22:30 WBC RBC Hgb Hct MCV MCH MCHC RDW Plt Count MPV Total Counted Neutrophils % Neutrophils % (Manual) Band Neuts % (Manual) Lymphocytes % Lymphocytes % (Manual) Monocytes % Monocytes % (Manual) Eosinophils % Basophils % Platelet Estimate PTT (Actin FS) Puncture Site Right radial ABG pH 7.47 H ABG pCO2 at Pt Temp 35.2 ABG pO2 at Pt Temp 55.2 L ABG HCO3 25.2 ABG O2 Sat (Measured) 89.8 L ABG O2 Content 17.7 ABG Base Excess 2.3 H Gwyn Test Positive O2 Delivery Device Venti mask Oxygen Flow Rate 50% PEEP 0.0 Sodium Potassium Chloride Carbon Dioxide Anion Gap BUN Creatinine Creat Clearance w eGFR Random Glucose Lactic Acid Calcium Total Bilirubin AST ALT Alkaline Phosphatase Creatine Kinase CK-MB (CK-2) 5.872 H Troponin I 0.67 H* C-Reactive Protein Total Protein Albumin 09/06/17 09/06/17 09/06/17 06:00 06:00 06:00 WBC 9.8 RBC 3.32 L Hgb 10.1 L D Hct 29.2 L D MCV 88.0 MCH 30.3 MCHC 34.5 RDW 14.2 Plt Count 245 MPV 8.9 D Total Counted Neutrophils % 77.4 Neutrophils % (Manual) Band Neuts % (Manual) Lymphocytes % 14.5 Lymphocytes % (Manual) Monocytes % 6.8 Monocytes % (Manual) Eosinophils % 0.6 Basophils % 0.7 Platelet Estimate PTT (Actin FS) 46.1 H D Puncture Site ABG pH ABG pCO2 at Pt Temp ABG pO2 at Pt Temp ABG HCO3 ABG O2 Sat (Measured) ABG O2 Content ABG Base Excess Gwyn Test O2 Delivery Device Oxygen Flow Rate PEEP Sodium 142 Potassium 3.3 L Chloride 107 Carbon Dioxide 26 Anion Gap 9 BUN 26 H D Creatinine 1.3 H Creat Clearance w eGFR 38.75 Random Glucose 119 H D Lactic Acid Calcium 7.4 L Total Bilirubin 0.7 D AST 33 ALT 22 Alkaline Phosphatase 58 D Creatine Kinase 331 H CK-MB (CK-2) Troponin I 0.49 H C-Reactive Protein Total Protein 5.6 L Albumin 2.3 L 09/06/17 06:00 WBC RBC Hgb Hct MCV MCH MCHC RDW Plt Count MPV Total Counted Neutrophils % Neutrophils % (Manual) Band Neuts % (Manual) Lymphocytes % Lymphocytes % (Manual) Monocytes % Monocytes % (Manual) Eosinophils % Basophils % Platelet Estimate PTT (Actin FS) Puncture Site ABG pH ABG pCO2 at Pt Temp ABG pO2 at Pt Temp ABG HCO3 ABG O2 Sat (Measured) ABG O2 Content ABG Base Excess Gwyn Test O2 Delivery Device Oxygen Flow Rate PEEP Sodium Potassium Chloride Carbon Dioxide Anion Gap BUN Creatinine Creat Clearance w eGFR Random Glucose Lactic Acid Calcium Total Bilirubin AST ALT Alkaline Phosphatase Creatine Kinase Cancelled CK-MB (CK-2) Troponin I Cancelled C-Reactive Protein Total Protein Albumin Active Medications Generic Name Dose Route Start Last Admin Trade Name Júniorq PRN Reason Stop Dose Admin Acetaminophen 1,000 mg 09/05/17 17:36 09/06/17 05:36 Ofirmev Injection - IVPB 09/06/17 17:37 1,000 mg Q8H PRN Administration FEVER OR PAIN Albuterol/Ipratropium 1 amp 09/05/17 16:22 09/06/17 05:35 Duoneb - NEB 1 amp Q4H PRN Administration SHORTNESS OF BREATH Amlodipine Besylate 5 mg 09/05/17 10:00 09/05/17 11:04 Norvasc - PO Not Given DAILY ASTRID Aspirin 81 mg 09/05/17 10:00 09/05/17 11:04 Asa - PO Not Given DAILY ASTRID Atorvastatin Calcium 10 mg 09/04/17 22:00 09/05/17 23:19 Lipitor - PO Not Given HS ASTRID Donepezil HCl 10 mg 09/05/17 10:00 09/05/17 11:03 Aricept - PO Not Given DAILY ASTRID Dorzolamide HCl 1 drop 09/04/17 22:00 09/05/17 23:20 Trusopt 2% OU Not Given BID ASTRID Fluticasone Propionate 1 - 2 spray 09/05/17 10:00 Flonase - NS DAILY ASTRID Heparin Sodium (Porcine) 1,000 unit 09/05/17 22:14 Heparin - IVPUSH PRN PRN Heparin Heparin Sodium (Porcine) 5,000 unit 09/05/17 22:14 Heparin - IVPUSH PRN PRN Heparin Pantoprazole Sodium 40 mg/ 100 mls @ 200 mls/hr 09/05/17 10:00 09/05/17 09:21 Sodium Chloride IVPB 200 mls/hr DAILY ASTRID Administration Ceftriaxone Sodium 2 gm/ 100 mls @ 200 mls/hr 09/06/17 10:00 Dextrose IVPB DAILY ASTRID Heparin Sodium/Dextrose 500 mls @ 16 mls/hr 09/05/17 22:15 09/06/17 08:27 Heparin Infusion - IVPB 900 units/hr TITR ASTRID Titration Protocol 800 UNITS/HR Potassium Chloride 10 meq/ 1,005 mls @ 75 mls/hr 09/06/17 09:00 Dextrose/Sodium Chloride IVPB ASDIR ASTRID Potassium Chloride 100 mls @ 100 mls/hr 09/06/17 09:00 Potassium Chloride 10 Meq Premix Ivpb - IVPB 09/06/17 10:59 Q60M ASTRID Latanoprost 1 drop 09/04/17 22:00 09/05/17 23:20 Xalatan 0.005% Eye Drops - OD Not Given HS ASTRID Losartan Potassium 100 mg 09/05/17 10:00 09/05/17 11:04 Cozaar - PO Not Given DAILY ASTRID Mirtazapine 15 mg 09/04/17 22:00 09/05/17 23:20 Remeron - PO Not Given HS ASTRID Pneumococcal 13-Valent Conj Vacc 0.5 ml 09/06/17 09:00 Prevnar 13 Syringe - IM 09/06/17 09:01 .ONCE ONE Risperidone 0.5 mg 09/04/17 22:00 09/05/17 23:20 Risperdal - PO Not Given HS ASTRID ASSESSMENT/PLAN: Patient is an 86 year old female with a significant past medical history of pulmonary HTN, hypertension, HLD, glaucoma, 1st degree AV block, hearing loss alzheimer's disease and anemia. She presents to the ED from her assisted living facility for increased weakness, lethargy and diarrhea. Due to the patient's dementia and hearing impairment, she is not a good historian. Per ED , the patient has been having diarrhea over the past 2 days prior to admission. She began experiencing worsening weakness and appearing more lethargic and nausea and an episode of non-bilious, non-bloody vomiting per ED notess. The facility then called EMS. The patient denies any fevers, chills, chest pain, SOB, or abdominal pain. She was also noted to have redness of bilateral lower extremities, right > left on admission. ID consulted for possible celllulitis of RLE. Vascular study was refused by patient after cost recovery technician attempted same. Imaging: Head CT r/o stroke, negative, awaiting brain MRI study Chest xray 09/06/2017: New right upper lobe, RLL consolidation with bronchograms , increased lung markings noted on left retrocardiac region, suggestion of right pleural effusion, no pneumothorax seen. ID: Sepsis, unknown source: pnemonia vs. RLE cellulitis (or both) vs. other source A/P: Chest xray suggests pneumonia, right lower ext, now warm to touch, seems to be improving with the IV antibiotics Blood and urine cultures pending, but no growth to date Lactic acid within normal limits, remains febrile WBC trended up, then now normalized with repeat labs Fever of 103.4 yesterday with tachycardia and worsening AMS, was noted to be somnolent, lethargic. Vancomycin 1 gram and Cefepime 2g x 1 given yesterday with fever spike, now on Ceftriaxone daily ID following Neuro: Metabolic Encephalopathy likely secondary to fever, sepsis in the setting of alzheimers dementia A/P: Patient continues to be lethargic today, able to state name but easily falls back to sleep ABG reviewed, pulmonary consulted Chest xray suggestive of pneumonia, likely aspiration pneumonia Head CT negative During yesterday's exam, patient noted to be foaming at the mouth and was minimally responsive, seizure? Neuro consulted May need EEG to rule out seizure activity Brain MRI ordered Cardiology: Pulmonary Hypertension/Hypertension A/P: continue home medications Monitor for fluid overload with IVF 1st degree AV block, chronic A/P: On electronic device monitor Elevated Troponins A/P: 0.05>0.21>0.67 Will trend trops to document peak Started on a Heparin drip overnight Cardiology following Pulmonary: Aspiration pneumonia, shortness of breath/New right upper lobe, RLL consolidation A/P: Now on a venti mask ABG ordered, reviewed Pulm consulted and following Right lower ext rule out DVT A/P: Patient did not tolerate vascular study, refused test: please repeat when patient more stable Now on a heparin drip VQ scan as per Pulmonary GI: Dehydration secondary to diarrhea episodes/non bilious vomiting/nausea, now resolved A/P: Patient reported to been having diarrhea over past 2 days prior to admission, now has not had any Stool studies, cdiff ordered, ova and parasites Monitor labs, replete electrolytes Protonix daily Consider GI consult if symptoms persist F.E.N. Fluids: NPO until mental status improves, then swallow evaluation (ordered) Electrolytes: hypoK repleted with 2 K riders and d5 ns 10meq @ 75, repeat cmp at 12p today Nutrition: NPO Prophylaxis: DVT: Heparin drip GI: Protonix Disposition. Patient was initially OBS for dehydration, but converted to inpatient for an admitting diagnosis of sepsis. Full code. Visit type - Emergency Visit Emergency Visit: Yes ED Registration Date: 09/05/17 Care time: The patient presented to the Emergency Department on the above date and was hospitalized for further evaluation of their emergent condition. - New Patient This patient is new to me today: No - Critical Care Critical Care patient: No - Discharge Referral Referred to [facility] Med P.C[facility] No
[2017-09-06] MEDS ORDERED: PNEUMOC 13-VAL CONJ-DIP CRM/PF 0.5 ML DISP.SYRIN IM ONE (09:00)
[2017-09-06] MEDS ORDERED: PT OWN MED DRAWER 7, Y5N ONE ×3 (09:20→22:20)
[2017-09-06] MEDS: ASPIRIN 81 MG CHEWABLE TABLETS PO SCH (09:40)
[2017-09-06] MEDS: amLODIPine BESYLATE 5 MG TABLET (FP) PO SCH (09:40)
[2017-09-06] MEDS: DONEPEZIL HCL 10 MG TABLET (FP) PO SCH (09:40)
[2017-09-06] MEDS: FLUTICASONE PROP 0.05% 16 GM NASAL SPRAY NS SCH (09:46)
[2017-09-06] MEDS ORDERED: VANCOMYCIN 1,000 MG in DEXTROSE 5%-WATER - 250 ML IVPB SCH (10:00)
[2017-09-06] MEDS ORDERED: POTASSIUM CHLORIDE 10 MEQ in DEXTROSE 5%-NORMAL SALINE 1,000 ML IVPB SCH (10:00)
--- NOTE | 2017-09-06 10:16 | PN ---
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, Physician Chief Complaint: Events noted Underlying dementia Fever 100.6 History of Present Illness: Patient was seen and examined. Awake. Chart was reviewed Denies chest pain, SOB or palpitations - Current Medication List Current Medications: Active Medications Acetaminophen (Ofirmev Injection -) 1,000 mg IVPB Q8H PRN PRN Reason: FEVER OR PAIN Stop: 09/06/17 17:37 Last Admin: 09/06/17 05:36 Dose: 1,000 mg Albuterol/Ipratropium (Duoneb -) 1 amp NEB Q4H PRN PRN Reason: SHORTNESS OF BREATH Last Admin: 09/06/17 05:35 Dose: 1 amp Amlodipine Besylate (Norvasc -) 5 mg PO DAILY [facility] Last Admin: 09/06/17 09:40 Dose: 5 mg Aspirin (Asa -) 81 mg PO DAILY [facility] Last Admin: 09/06/17 09:40 Dose: 81 mg Atorvastatin Calcium (Lipitor -) 10 mg PO HS [facility] Last Admin: 09/05/17 23:19 Dose: Not Given Donepezil HCl (Aricept -) 10 mg PO DAILY [facility] Last Admin: 09/06/17 09:40 Dose: 10 mg Dorzolamide HCl (Trusopt 2%) 1 drop OU BID [facility] Last Admin: 09/05/17 23:20 Dose: Not Given Fluticasone Propionate (Flonase -) 1 - 2 spray NS DAILY [facility] Last Admin: 09/06/17 09:46 Dose: Not Given Heparin Sodium (Porcine) (Heparin -) 1,000 unit IVPUSH PRN PRN PRN Reason: Heparin Last Admin: 09/06/17 08:30 Dose: 1,000 unit Heparin Sodium (Porcine) (Heparin -) 5,000 unit IVPUSH PRN PRN PRN Reason: Heparin Pantoprazole Sodium 40 mg/ (Sodium Chloride) 100 mls @ 200 mls/hr IVPB DAILY [facility] Last Admin: 09/05/17 09:21 Dose: 200 mls/hr Ceftriaxone Sodium 2 gm/ (Dextrose) 100 mls @ 200 mls/hr IVPB DAILY [facility] Heparin Sodium/Dextrose (Heparin Infusion -) 500 mls @ 16 mls/hr IVPB TITR [facility] ; 800 UNITS/HR PRN Reason: Protocol Last Titration: 09/06/17 08:27 Dose: 900 units/hr Potassium Chloride (Potassium Chloride 10 Meq Premix Ivpb -) 100 mls @ 100 mls/ hr IVPB Q60M [facility] Stop: 09/06/17 11:44 Potassium Chloride/Dextrose/Sod Cl (D5-1/2ns+10 Meq Kcl -) 1,000 mls @ 75 mls/ hr IV ASDIR [facility] Latanoprost (Xalatan 0.005% Eye Drops -) 1 drop OD [facility] Last Admin: 09/05/17 23:20 Dose: Not Given Losartan Potassium (Cozaar -) 100 mg PO DAILY [facility] Last Admin: 09/05/17 11:04 Dose: Not Given Mirtazapine (Remeron -) 15 mg PO [facility] Last Admin: 09/05/17 23:20 Dose: Not Given Risperidone (Risperdal -) 0.5 mg PO [facility] Last Admin: 09/05/17 23:20 Dose: Not Given - Objective Vital Signs: Vital Signs Temperature 100.6 F H 09/06/17 05:39 Pulse Rate 93 H 09/06/17 05:39 Respiratory Rate 20 09/06/17 05:39 Blood Pressure 140/69 09/06/17 05:39 O2 Sat by Pulse Oximetry (%) 90 L 09/05/17 22:00 Neck: Yes: Supple Cardiovascular: Yes: Regular Rate and Rhythm, Murmur (Soft SM), S1, S2 Respiratory: Yes: Diminished Gastrointestinal: Yes: Normal Bowel Sounds, Soft. No: Tenderness Edema: No Labs: CBC, BMP 09/06/17 06:00 09/06/17 06:00 INR, PTT INR 1.08 (0.82-1.09) 09/04/17 14:40 Problem List - Problems (1) Acute respiratory failure with hypoxia Code(s): J96.01 - ACUTE RESPIRATORY FAILURE WITH HYPOXIA (2) Demand ischemia Code(s): I24.8 - OTHER FORMS OF ACUTE ISCHEMIC HEART DISEASE (3) Dementia in Alzheimer's disease Code(s): G30.9 - ALZHEIMER'S DISEASE, UNSPECIFIED F02.80 - DEMENTIA IN OTH DISEASES CLASSD ELSWHR W/O BEHAVRL DISTURB (4) Diastolic dysfunction without heart failure Code(s): I51.9 - HEART DISEASE, UNSPECIFIED (5) Fever Code(s): R50.9 - FEVER, UNSPECIFIED Qualifiers: Fever type: unspecified Qualified Code(s): R50.9 - Fever, unspecified; R50.9 - Fever, unspecified (6) Gastroenteritis Code(s): K52.9 - NONINFECTIVE GASTROENTERITIS AND COLITIS, UNSPECIFIED (7) Hyperlipidemia Code(s): E78.5 - HYPERLIPIDEMIA, UNSPECIFIED Qualifiers: Hyperlipidemia type: pure hypercholesterolemia Qualified Code(s): E78.00 - Pure hypercholesterolemia, unspecified; E78.00 - Pure hypercholesterolemia, unspecified; E78.00 - Pure hypercholesterolemia, unspecified; E78.0 - Pure hypercholesterolemia (8) Hypertensive cardiovascular disease Code(s): I11.9 - HYPERTENSIVE HEART DISEASE WITHOUT HEART FAILURE Qualifiers: Heart failure presence: without heart failure Qualified Code(s): I11.9 - Hypertensive heart disease without heart failure; I11.9 - Hypertensive heart disease without heart failure; I11.9 - Hypertensive heart disease without heart failure (9) Pneumonia Code(s): J18.9 - PNEUMONIA, UNSPECIFIED ORGANISM Qualifiers: Pneumonia type: due to unspecified organism Laterality: right Lung location: lower lobe of lung Qualified Code(s): J18.1 - Lobar pneumonia, unspecified organism; J18.1 - Lobar pneumonia, unspecified organism; J18.1 - Lobar pneumonia, unspecified organism Assessment/Plan 1. Fever due to sepsis, etiology to be determined, possible RUL and RLL pneumonia 2. Demand ischemic injury 3. Hypertension 4. Pulmonary hypertension 5. Dementia of Alzheimer's Type PLAN: 1. Continue IV fluids 2. Hospitalist input noted from last night. She was started on Heparin drip and V/Q scan was recommended. Other option is to obtain chest CT with contrast. Await pulmonary input. Doubt PE 3. Trend cardiac enzymes 4. Transthoracic echocardiography to assess LV/RV and valvular function 5. Continue Norvasc 5 qd, ASA 81 qd, Losartan 100 qd and Zocor 20 qhs 6. Empiric antibiotic course and fever work up Further plans are to follow Larry Velasco MD
--- NOTE | 2017-09-06 10:49 | CONSULT ---
Admitting History and Physical - Primary Care Physician PCP: Felipe Rodriguez - Admission History of Present Illness: Patient is an 86 year old female with a significant past medical history of pulmonary HTN, hypertension, HLD, glaucoma, 1st degree AV block, hearing loss alzheimer's disease and anemia. She presents to the ED from her assisted living facility for increased weakness, lethargy and diarrhea. CXR RUL/RLL consolidations. Pt has been NPO except for Medication crushed in applesauce. Selected Entries 09/04/17 09/04/17 09/04/17 13:33 15:15 19:16 Temperature 98.6 F 99.6 F 97.9 F 09/05/17 09/05/17 09/05/17 00:30 11:00 17:00 Temperature 96.8 F L 103.4 F H 99.6 F 09/05/17 09/06/17 09/06/17 22:00 02:00 05:39 Temperature 100.0 F H 98.1 F 100.6 F H Laboratory Tests 09/04/17 09/05/17 09/06/17 14:40 08:00 06:00 WBC 10.4 H 12.3 H 9.8 Pt was lethargic yesterday but alert today. Verbal, perseverative on "193" for many questions. Oriented to hospital only. History Source: Medical Record Limitations to Obtaining History: Dementia, Poor Historian - Smoking History Smoking history: Never smoked Have you smoked in the past 12 months: No Aproximately how many cigarettes per day: 0 If you are a former smoker, when did you quit?: 1940 - Alcohol/Substance Use Hx Alcohol Use: No History - Admission Reason For Visit: DEHYDRATION - Diagnostics X-ray: Report Reviewed (RUL/RLL consolidations.) - General Mental Status: Awake and Alert, Able to Follow Commands, Vague, Confused, Flat Affect Attention: Distractible, Mild Impairment Ability to Follow Directions: Fair Head/Neck Control: Fair - Hearing Hearing: Functional Speech Evaluation - Communication Primary Language: EQUATORIAL GUINEAN Communication: Yes: Simple Responses - Speech Production Intelligibility: Yes: WNL - Speech Characteristics Voice Loudness: Normal Voice Pitch: Yes: Normal Voice Phonatory-based Quality: Yes: Normal Speech Clarity: < 100% Nasal Resonance: Normal Articulation: Yes: Precise - Language/Auditory Comprehension Follows: Yes: 1 Stage Simple Commands Observation: Comprehends Conversational Speech: Yes (simple,intermittent) - Language/Verbal Expression Able to Respond to Simple Queries: Yes: Moderately Impaired - Swallow Evaluation/Bedside Assessment Current Nutritional Intake: NPO, Other (except for medication in applesauce) Oral Secretions: Yes: WFL Facial Symmetry at Rest: Symmetrical Jaw Position: Closed at Rest Laryngeal Movement: Able to Palpate Oral Prep Time: Increased A-P Transit: Impaired Timing of Swallow: Delayed Coughing/Throat Clear: Yes (on saliva, not po trials) Recommendations - Speech Evaluation, Impression/Plan Impression: Cough noted on saliva, not po trials. RUL/RLL consolidations on CXR. Verbal, speech precise, voice euphonic. Swallow delayed. Accepts tiny amount of puree from tip of spoon. Pt was on reg diet/thin liquid at assisted living facility. - Dysphagia Impressions/Plan Dysphagia Impressions: Ongoing Evaluation, Suspect Aspiration (on saliva?) *Silent aspiration: cannot be R/O at bedside Recommendations: MBS w Esophagus - Recommendations Medication Administration: Crushed with applesauce
[2017-09-06] MEDS: CEFTRIAXONE 2 GM in DEXTROSE 5%-WATER - 100 ML IVPB SCH (10:57)
[2017-09-06] MEDS: DORZOLAMIDE 2% HCL OPHTHALMIC SOLUTION 10 ML BOTTLE OU SCH ×2 (10:58→21:43)
[2017-09-06] MEDS: PANTOPRAZOLE SODIUM 40 MG in SODIUM CHLORIDE 100 ML IVPB SCH (10:58)
[2017-09-06] MEDS: D5-1/2NS+10 MEQ KCL - 1,000 ML IV SCH (10:58)
[2017-09-06] MEDS: KCL 10 MEQ IVPB 100 ML IVPB SCH ×2 (11:21→14:56)
--- NOTE | 2017-09-06 12:23 | PN ---
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, Physician History of Present Illness: pulmonary lethargic,arousable,still congested. febrile - Current Medication List Current Medications: Active Medications Acetaminophen (Ofirmev Injection -) 1,000 mg IVPB Q8H PRN PRN Reason: FEVER OR PAIN Stop: 09/06/17 17:37 Last Admin: 09/06/17 05:36 Dose: 1,000 mg Albuterol/Ipratropium (Duoneb -) 1 amp NEB Q4H PRN PRN Reason: SHORTNESS OF BREATH Last Admin: 09/06/17 05:35 Dose: 1 amp Amlodipine Besylate (Norvasc -) 5 mg PO DAILY [facility] Last Admin: 09/06/17 09:40 Dose: 5 mg Aspirin (Asa -) 81 mg PO DAILY [facility] Last Admin: 09/06/17 09:40 Dose: 81 mg Atorvastatin Calcium (Lipitor -) 10 mg PO HS [facility] Last Admin: 09/05/17 23:19 Dose: Not Given Donepezil HCl (Aricept -) 10 mg PO DAILY [facility] Last Admin: 09/06/17 09:40 Dose: 10 mg Dorzolamide HCl (Trusopt 2%) 1 drop OU BID [facility] Last Admin: 09/06/17 10:58 Dose: 1 drop Fluticasone Propionate (Flonase -) 1 - 2 spray NS DAILY [facility] Last Admin: 09/06/17 09:46 Dose: Not Given Heparin Sodium (Porcine) (Heparin -) 1,000 unit IVPUSH PRN PRN PRN Reason: Heparin Last Admin: 09/06/17 08:30 Dose: 1,000 unit Heparin Sodium (Porcine) (Heparin -) 5,000 unit IVPUSH PRN PRN PRN Reason: Heparin Pantoprazole Sodium 40 mg/ (Sodium Chloride) 100 mls @ 200 mls/hr IVPB DAILY [facility] Last Admin: 09/06/17 10:58 Dose: 200 mls/hr Ceftriaxone Sodium 2 gm/ (Dextrose) 100 mls @ 200 mls/hr IVPB DAILY [facility] Last Admin: 09/06/17 10:57 Dose: 200 mls/hr Heparin Sodium/Dextrose (Heparin Infusion -) 500 mls @ 16 mls/hr IVPB TITR [facility] ; 800 UNITS/HR PRN Reason: Protocol Last Titration: 09/06/17 08:27 Dose: 900 units/hr Potassium Chloride/Dextrose/Sod Cl (D5-1/2ns+10 Meq Kcl -) 1,000 mls @ 75 mls/ hr IV ASDIR [facility] Last Admin: 09/06/17 10:58 Dose: 75 mls/hr Metronidazole (Flagyl 500mg Premixed Ivpb -) 100 mls @ 100 mls/hr IVPB Q8H-IV [facility] Latanoprost (Xalatan 0.005% Eye Drops -) 1 drop OD HS [facility] Last Admin: 09/05/17 23:20 Dose: Not Given Losartan Potassium (Cozaar -) 100 mg PO DAILY [facility] Last Admin: 09/05/17 11:04 Dose: Not Given Mirtazapine (Remeron -) 15 mg PO HS [facility] Last Admin: 09/05/17 23:20 Dose: Not Given Risperidone (Risperdal -) 0.5 mg PO [facility] Last Admin: 09/05/17 23:20 Dose: Not Given - Objective Vital Signs: Vital Signs Temperature 100.6 F H 09/06/17 05:39 Pulse Rate 93 H 09/06/17 05:39 Respiratory Rate 20 09/06/17 05:39 Blood Pressure 140/69 09/06/17 05:39 O2 Sat by Pulse Oximetry (%) 90 L 09/05/17 22:00 Constitutional: Yes: Well Nourished, Other (ethrgic) Eyes: Yes: WNL HENT: Yes: WNL Neck: Yes: WNL Cardiovascular: Yes: Regular Rate and Rhythm Respiratory: Yes: Rhonchi (bilateral rhonchi) Gastrointestinal: Yes: Normal Bowel Sounds, Soft Extremities: Yes: WNL Edema: Yes Neurological: Yes: Lethargy Labs: CBC, BMP 09/06/17 06:00 09/06/17 06:00 INR, PTT INR 1.08 (0.82-1.09) 09/04/17 14:40 Laboratory Tests 09/05/17 22:10 ABG pH 7.47 H ABG pCO2 at Pt Temp 35.2 ABG pO2 at Pt Temp 55.2 L ABG HCO3 25.2 ABG O2 Sat (Measured) 89.8 L O2 Delivery Device Venti mask Oxygen Flow Rate 50% Problem List - Problems (1) Cellulitis Code(s): L03.90 - CELLULITIS, UNSPECIFIED (2) Dehydration Code(s): E86.0 - DEHYDRATION (3) Dementia in Alzheimer's disease Code(s): G30.9 - ALZHEIMER'S DISEASE, UNSPECIFIED F02.80 - DEMENTIA IN OTH DISEASES CLASSD ELSWHR W/O BEHAVRL DISTURB (4) Diastolic dysfunction without heart failure Code(s): I51.9 - HEART DISEASE, UNSPECIFIED (5) Gastroenteritis Code(s): K52.9 - NONINFECTIVE GASTROENTERITIS AND COLITIS, UNSPECIFIED (6) Hyperlipidemia Code(s): E78.5 - HYPERLIPIDEMIA, UNSPECIFIED Qualifiers: Hyperlipidemia type: pure hypercholesterolemia Qualified Code(s): E78.00 - Pure hypercholesterolemia, unspecified; E78.00 - Pure hypercholesterolemia, unspecified; E78.00 - Pure hypercholesterolemia, unspecified; E78.0 - Pure hypercholesterolemia (7) Acute respiratory failure with hypoxia Code(s): J96.01 - ACUTE RESPIRATORY FAILURE WITH HYPOXIA (8) Pneumonia Code(s): J18.9 - PNEUMONIA, UNSPECIFIED ORGANISM Qualifiers: Pneumonia type: due to unspecified organism Laterality: right Lung location: lower lobe of lung Qualified Code(s): J18.1 - Lobar pneumonia, unspecified organism; J18.1 - Lobar pneumonia, unspecified organism; J18.1 - Lobar pneumonia, unspecified organism Assessment/Plan IMP ACUTE HYPOXEMIC RESPIRATORY FAILURE LIKELY ASPIRATION PNEUMONIA ALTERED MENTAL STATUS SECONDARY TO TOXIC METABOLIC ENCEPHALOPATHY GASTROENTERITIS CELLULITIS ALZHEIMERS DEMENTIA PARKINSONS DEHYDRATION PLAN IVF ANTIBIOTICS INHALED BRONCHODILATORS SUPPLEMENTAL O2 F/U CHEST X-RAY AM ASPIRATION PRECAUTIONS DR REBOLLAR
--- NOTE | 2017-09-06 12:51 | PN ---
Teaching Attending Note Name of Resident: Tawny Timmons ATTENDING PHYSICIAN STATEMENT I saw and evaluated the patient. I reviewed the resident's note and discussed the case with the resident. I agree with the resident's findings and plan as documented. SUBJECTIVE: Events noted Staff reports pt more alert Offers no complaints. Denies chest pain/ dyspnea/ cough Febrile overnight CXR shows new R sided infiltrate OBJECTIVE: Awake,alert Slightly dyspneic on mask Cor S1S2 + crepitations R lung field ASSESSMENT AND PLAN: Probable aspiration R sided pneumonia Possible sepsis secondary to lung source Continue ceftriaxone Add Flagyl Aspiration precautions
--- NOTE | 2017-09-06 13:43 | PN ---
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 (short form) - Note 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: 86 year old female history of htn, hyperlipidemia, glaucoma , hearing loss. Patient is able to walk with walker at . she was brought in for right leg redness and swelling. She is very sleepy but aroussable. Spoke to Dr rodrigues , she had been foaming through mouth and there was no witnessed seizures. Patient is moving all etremity and denies any headhace. She has been started on antibiotics. She had fever of 103. Patient has been very sleepy.Patient has suspected diagnosis of parkinson disease but not being treated she is slightly better in terms of mental status, ghough still confused. She has been afebrile and found to have pneumonia. Ct head is unremarkable, and hospitalist was concern about seizure or stroke Neurological Examination Alert able to follow simple command, she is sleepy and speech is normal( she is easily arousable and more communicative than yesterday) eomi, no face asymmetry, eomi and moving all extremity, neck is supple moving all extremity sensation is normal she has right leg swelling and redness and very warm extremity Ct head is unremarkable , showed white matter disease Assessment-- delirium secondary to pneumonia and cellulitis, less likely to be status or stroke Plan continue antibiotic as per ID - may do mri of brain and eeg as previously planned - no need to consider spinal tap at this time - continue supportive treatment - pulmonary and speech consult appreciated. Thank nolan Glaser MD
[2017-09-06] MEDS: METRONIDAZOLE 500 MG PREMIXED 100 ML IVPB SCH ×2 (14:56→17:53)
[2017-09-06 15:56] LABS: ALBUMIN 2.5 g/dl (3.4-5.0); ALK PHOS 61 U/L (45-117); ANION GAP 10 (8-16); BILIRUBIN,TOTAL 0.5 mg/dL (0.2-1.0); CALCIUM 7.7 mg/dL (8.5-10.1); CO2 27 mmol/L (21-32); CREATININE 1.2 mg/dL (0.55-1.02); GLUCOSE,RANDOM 117 mg/dL (74-106); SGOT/AST 25 U/L (15-37); SGPT/ALT 21 U/L (12-78); TOT PROT 5.7 g/dl (6.4-8.2)
[2017-09-06] MEDS ORDERED: KCL 10 MEQ IVPB 100 ML IVPB SCH (16:45)
[2017-09-06] MEDS ORDERED: ACETAMINOPHEN 325 MG TABLET (FP) ONE (18:01)
[2017-09-06] MEDS: ACETAMINOPHEN 325 MG TABLET (FP) PO PRN (18:40)
[2017-09-06] MEDS: ATORVASTATIN CA 10 MG TABLET (FP) PO SCH (21:43)
[2017-09-06] MEDS: risperiDONE 0.5 MG TABLET (FP) PO SCH (21:43)
[2017-09-06] MEDS: MIRTAZAPINE 15 MG TABLET (FP) PO SCH (21:43)
--- NOTE | 2017-09-06 22:20 | EKG ---
Test Reason : Blood Pressure : / mmHG Vent. Rate : 089 BPM Atrial Rate : 089 BPM P-R Int : 192 ms QRS Dur : 120 ms QT Int : 408 ms P-R-T Axes : 081 -30 062 degrees QTc Int : 496 ms NORMAL SINUS RHYTHM ATRIAL PREMATURE BEATS LEFT AXIS DEVIATION RIGHT BUNDLE BRANCH BLOCK LEFT VENTRICULAR HYPERTROPHY WITH REPOLARIZATION ABNORMALITY ABNORMAL ECG WHEN COMPARED WITH ECG OF 05-SEP-2017 18:21, REPEAT EKG IF CLINICALLY INDICATED Confirmed by JEAN PAUL OGLESBY MD ([id number] on 09/06/2017 10:20:44 PM Referred By: Confirmed By:JEAN PAUL OGLESBY MD
[2017-09-06] MEDS: HEPARIN INFUSION - 500 ML IVPB SCH (22:43)
[2017-09-07] MEDS: LATANOPROST 0.005% OPHTH SOLN 2.5ML BOTTLE OD SCH ×2 (00:23→23:39)
[2017-09-07] MEDS: METRONIDAZOLE 500 MG PREMIXED 100 ML IVPB SCH ×3 (02:45→17:56)
[2017-09-07] MEDS: ACETAMINOPHEN 325 MG TABLET (FP) PO PRN (05:56)
[2017-09-07] MEDS ORDERED: PT OWN MED DRAWER 7, Y5N ONE ×5 (06:28→23:33)
[2017-09-07 07:31] LABS: MCH 31.1 pg (25.7-33.7); MCHC 34.7 g/dl (32.0-36.0); MEAN CELL VOLUME 89.9 fl (80-96); PLATELET COUNT 281 K/MM3 (134-434); RDW 14.2 % (11.6-15.6); WHITE BLOOD COUNT 10.1 K/mm3 (4.0-10.0)
[2017-09-07] MEDS: amLODIPine BESYLATE 5 MG TABLET (FP) PO SCH (10:34)
[2017-09-07] MEDS: ASPIRIN 81 MG CHEWABLE TABLETS PO SCH (10:34)
[2017-09-07] MEDS: PANTOPRAZOLE SODIUM 40 MG VIAL IVPUSH SCH (10:35)
[2017-09-07] MEDS: DONEPEZIL HCL 10 MG TABLET (FP) PO SCH (10:36)
[2017-09-07] MEDS: D5-1/2NS+10 MEQ KCL - 1,000 ML IV SCH ×2 (10:37→23:40)
[2017-09-07] MEDS: CEFTRIAXONE 2 GM in DEXTROSE 5%-WATER - 100 ML IVPB SCH (10:38)
[2017-09-07] MEDS: DORZOLAMIDE 2% HCL OPHTHALMIC SOLUTION 10 ML BOTTLE OU SCH ×2 (10:39→23:39)
--- NOTE | 2017-09-07 10:43 | PN ---
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, PHILANTHROPY OFFICER - Note 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: Selected Entries 09/06/17 09/06/17 09/06/17 02:00 05:39 11:00 Supper Temperature 98.1 F 100.6 F H 98.9 F 09/06/17 09/06/17 09/06/17 18:12 22:44 23:00 Supper 75% Temperature 100.1 F H 99.3 F 09/07/17 09/07/17 02:00 06:00 Supper Temperature 99.5 F 101.6 F H Laboratory Tests 09/06/17 09/07/17 06:00 05:35 WBC 9.8 10.1 H MBS reviewed with staff. Pt reported to be lethargic last night with some coughing noted during dinner. Dinner was then held. Possibly pt completed dinner later when more alert as 75% of dinner was documented. Pt is alert, verbal. Tolerated breakfast well this am. REC: Continue po diet, only when alert and attending.
--- NOTE | 2017-09-07 10:46 | PN ---
Physical Exam: SUBJECTIVE: Patient seen and examined this AM. Spiked temp las night, Tmax 101.6. But currently off ventimask, improved clinically. Denies CP, SOB. OBJECTIVE: Vital Signs Period Temp Pulse Resp BP Sys/Matute Pulse Ox Last 24 Hr 98.9 F-101.6 F 90-120 16-20 136-161/54-87 94 GEN: Lying in bed with ventimask, responds to questions but visibly tired, dried saliva near mouth HEENT: PERRLA CV: S1, S2, 3/6 systolic murmur LUNG: R sided crackles/rhonchi ABD: Soft, NT, ND, normoactive BS MSK: No edema, mild BLLE pink/red rash Active Medications Generic Name Dose Route Start Last Admin Trade Name Freq PRN Reason Stop Dose Admin Acetaminophen 650 mg 09/06/17 18:16 09/07/17 05:56 Tylenol - PO 650 mg Q6H PRN Administration FEVER OR PAIN Albuterol/Ipratropium 1 amp 09/05/17 16:22 09/06/17 05:35 Duoneb - NEB 1 amp Q4H PRN Administration SHORTNESS OF BREATH Amlodipine Besylate 5 mg 09/05/17 10:00 09/06/17 09:40 Norvasc - PO 5 mg DAILY [facility] Administration Aspirin 81 mg 09/05/17 10:00 09/06/17 09:40 Asa - PO 81 mg DAILY [facility] Administration Atorvastatin Calcium 10 mg 09/04/17 22:00 09/06/17 21:43 Lipitor - PO 10 mg HS [facility] Administration Donepezil HCl 10 mg 09/05/17 10:00 09/06/17 09:40 Aricept - PO 10 mg DAILY [facility] Administration Dorzolamide HCl 1 drop 09/04/17 22:00 09/06/17 21:43 Trusopt 2% OU 1 drop BID [facility] Administration Fluticasone Propionate 1 - 2 spray 09/05/17 10:00 09/06/17 09:46 Flonase - NS Not Given DAILY [facility] Heparin Sodium (Porcine) 1,000 unit 09/05/17 22:14 09/06/17 08:30 Heparin - IVPUSH 1,000 unit PRN PRN Administration Heparin Heparin Sodium (Porcine) 5,000 unit 09/05/17 22:14 Heparin - IVPUSH PRN PRN Heparin Ceftriaxone Sodium 2 gm/ 100 mls @ 200 mls/hr 09/06/17 10:00 09/06/17 10:57 Dextrose IVPB 200 mls/hr DAILY [facility] Administration Heparin Sodium/Dextrose 500 mls @ 16 mls/hr 09/05/17 22:15 09/06/17 22:43 Heparin Infusion - IVPB 18 mls/hr TITR [facility] Administration Protocol 800 UNITS/HR Potassium Chloride/Dextrose/Sod Cl 1,000 mls @ 75 mls/hr 09/06/17 09:45 10:58 D5-1/2ns+10 Meq Kcl - IV 75 mls/hr ASDIR [facility] Administration Metronidazole 100 mls @ 100 mls/hr 09/06/17 12:00 09/07/17 02:45 Flagyl 500mg Premixed Ivpb - IVPB 100 mls/hr Q8H-IV [facility] Administration Latanoprost 1 drop 09/04/17 22:00 09/07/17 00:23 Xalatan 0.005% Eye Drops - OD 1 drop HS [facility] Administration Losartan Potassium 100 mg 09/05/17 10:00 09/05/17 11:04 Cozaar - PO Not Given DAILY [facility] Mirtazapine 15 mg 09/04/17 22:00 09/06/17 21:43 Remeron - PO 15 mg HS [facility] Administration Pantoprazole Sodium 40 mg 09/07/17 10:00 Protonix Ivpb - IVPUSH DAILY [facility] Risperidone 0.5 mg 09/04/17 22:00 09/06/17 21:43 Risperdal - PO 0.5 mg HS [facility] Administration CBC, BMP 09/07/17 05:35 09/06/17 15:20 Microbiology 09/06/17 05:30 Nasopharyngeal Swab Influenza Types A,B Antigen (SUSANNAH) - Final 09/06/17 05:30 Nasopharyngeal Swab - Final 09/04/17 14:40 Urine - Urine Clean Catch Urine Culture - Final NO GROWTH OBTAINED 09/04/17 14:40 Blood - Peripheral Venous Blood Culture - Preliminary NO GROWTH OBTAINED AFTER 48 HOURS, INCUBATION TO CONTINUE FOR 3 DAYS. 09/04/17 14:40 Blood - Peripheral Venous Blood Culture - Preliminary NO GROWTH OBTAINED AFTER 48 HOURS, INCUBATION TO CONTINUE FOR 3 DAYS. ASSESSMENT/PLAN: Pt is an 86yo F with PMHx of Pulmonary HTN, HLD, 1st degree AVB, hearing loss, Alzheimers, who presented from [facility] facility for increasing weakness, lethargy, diarrhea. # Likely Aspiration PNA - RUL and RLL infiltrates - Spiking fevers, but clinically much improved - On Ceftriaxone/Flagyl, continue - Sputum culture - Continue supportive O2 Discussed w/ Dr Orourke, will follow. Tawny Timmons MD - PGY1 Infectious Disease Visit type - Emergency Visit Emergency Visit: No - New Patient This patient is new to me today: No - Critical Care Critical Care patient: No - Discharge Referral Referred to [facility] Med P.C.: No
--- NOTE | 2017-09-07 11:47 | EKG ---
Test Reason : Blood Pressure : / mmHG Vent. Rate : 090 BPM Atrial Rate : 090 BPM P-R Int : 208 ms QRS Dur : 116 ms QT Int : 420 ms P-R-T Axes : 067 -31 205 degrees QTc Int : 513 ms SINUS RHYTHM WITH PREMATURE ATRIAL COMPLEXES LEFT AXIS DEVIATION LEFT VENTRICULAR HYPERTROPHY WITH QRS WIDENING AND REPOLARIZATION ABNORMALITY MARKED ST ABNORMALITY, POSSIBLE INFEROLATERAL SUBENDOCARDIAL INJURY PROLONGED QT ABNORMAL ECG WHEN COMPARED WITH ECG OF 04-SEP-2017 14:08, PREMATURE ATRIAL COMPLEXES ARE NOW PRESENT WA INTERVAL HAS DECREASED Confirmed by JA MARR, SEVEN ([id number]) on 09/07/2017 11:46:46 AM Referred By: Confirmed By:SEVEN PERES MD
--- NOTE | 2017-09-07 12:46 | PN ---
Teaching Attending Note Name of Resident: Tawny Timmons ATTENDING PHYSICIAN STATEMENT I saw and evaluated the patient. I reviewed the resident's note and discussed the case with the resident. I agree with the resident's findings and plan as documented. SUBJECTIVE: More awake and alert Confused Remains febrile Breathing non -labored Cough noted OBJECTIVE: Cor S1S2 + rales R lung field Abdomen soft, non tender ASSESSMENT AND PLAN: Probable aspiration R pneumonia Await c/s Continue ceftriaxone/ flagyl
--- NOTE | 2017-09-07 12:52 | PN ---
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, Physician History of Present Illness: pulmonary awake,alert,nad,-congestion - Current Medication List Current Medications: Active Medications Acetaminophen (Tylenol -) 650 mg PO Q6H PRN PRN Reason: FEVER OR PAIN Last Admin: 09/07/17 05:56 Dose: 650 mg Albuterol/Ipratropium (Duoneb -) 1 amp NEB Q4H PRN PRN Reason: SHORTNESS OF BREATH Last Admin: 09/06/17 05:35 Dose: 1 amp Amlodipine Besylate (Norvasc -) 5 mg PO DAILY [facility] Aspirin (Asa -) 81 mg PO DAILY [facility] Atorvastatin Calcium (Lipitor -) 10 mg PO HS [facility] Donepezil HCl (Aricept -) 10 mg PO DAILY [facility] Dorzolamide HCl (Trusopt 2%) 1 drop OU BID [facility] Fluticasone Propionate (Flonase -) 2 spray NS DAILY [facility] Heparin Sodium (Porcine) (Heparin -) 1,000 unit IVPUSH PRN PRN PRN Reason: Heparin Last Admin: 09/06/17 08:30 Dose: 1,000 unit Heparin Sodium (Porcine) (Heparin -) 5,000 unit IVPUSH PRN PRN PRN Reason: Heparin Ceftriaxone Sodium 2 gm/ (Dextrose) 100 mls @ 200 mls/hr IVPB DAILY [facility] Last Admin: 09/07/17 10:38 Dose: 200 mls/hr Heparin Sodium/Dextrose (Heparin Infusion -) 500 mls @ 16 mls/hr IVPB TITR [facility] ; 800 UNITS/HR PRN Reason: Protocol Last Admin: 09/06/17 22:43 Dose: 18 mls/hr Potassium Chloride/Dextrose/Sod Cl (D5-1/2ns+10 Meq Kcl -) 1,000 mls @ 75 mls/ hr IV ASDIR [facility] Last Admin: 09/07/17 10:37 Dose: 75 mls/hr Metronidazole (Flagyl 500mg Premixed Ivpb -) 100 mls @ 100 mls/hr IVPB Q8H-IV [facility] Last Admin: 09/07/17 10:38 Dose: 100 mls/hr Latanoprost (Xalatan 0.005% Eye Drops -) 1 drop OD HS [facility] Losartan Potassium (Cozaar -) 100 mg PO DAILY [facility] Mirtazapine (Remeron -) 15 mg PO HS [facility] Pantoprazole Sodium (Protonix Iv) 40 mg IVPUSH DAILY [facility] Last Admin: 09/07/17 10:35 Dose: 40 mg Risperidone (Risperdal -) 0.5 mg PO HS [facility] - Objective Vital Signs: Vital Signs Temperature 99.8 F H 09/07/17 10:00 Pulse Rate 92 H 09/07/17 10:00 Respiratory Rate 16 09/07/17 06:00 Blood Pressure 142/77 09/07/17 10:00 O2 Sat by Pulse Oximetry (%) 94 L 09/07/17 09:00 Constitutional: Yes: Well Nourished, Calm Eyes: Yes: WNL HENT: Yes: WNL Neck: Yes: WNL Cardiovascular: Yes: Regular Rate and Rhythm, S1, S2 Respiratory: Yes: Rales (CRACKLES ON R), Rhonchi (few rhonchi) Gastrointestinal: Yes: Normal Bowel Sounds, Soft Extremities: Yes: WNL Edema: No Labs: CBC, BMP 09/07/17 05:35 INR, PTT INR 1.08 (0.82-1.09) 09/04/17 14:40 - ....Imaging Chest X-ray: Report Reviewed, Image Reviewed (NEW RUL,RLL CONSOLIDATION) Problem List - Problems (1) Cellulitis Code(s): L03.90 - CELLULITIS, UNSPECIFIED (2) Dehydration Code(s): E86.0 - DEHYDRATION (3) Dementia in Alzheimer's disease Code(s): G30.9 - ALZHEIMER'S DISEASE, UNSPECIFIED F02.80 - DEMENTIA IN OTH DISEASES CLASSD ELSWHR W/O BEHAVRL DISTURB (4) Diastolic dysfunction without heart failure Code(s): I51.9 - HEART DISEASE, UNSPECIFIED (5) Gastroenteritis Code(s): K52.9 - NONINFECTIVE GASTROENTERITIS AND COLITIS, UNSPECIFIED (6) Hyperlipidemia Code(s): E78.5 - HYPERLIPIDEMIA, UNSPECIFIED Qualifiers: Hyperlipidemia type: pure hypercholesterolemia Qualified Code(s): E78.00 - Pure hypercholesterolemia, unspecified; E78.00 - Pure hypercholesterolemia, unspecified; E78.00 - Pure hypercholesterolemia, unspecified; E78.0 - Pure hypercholesterolemia (7) Acute respiratory failure with hypoxia Code(s): J96.01 - ACUTE RESPIRATORY FAILURE WITH HYPOXIA (8) Pneumonia Code(s): J18.9 - PNEUMONIA, UNSPECIFIED ORGANISM Qualifiers: Pneumonia type: due to unspecified organism Laterality: right Lung location: lower lobe of lung Qualified Code(s): J18.1 - Lobar pneumonia, unspecified organism; J18.1 - Lobar pneumonia, unspecified organism; J18.1 - Lobar pneumonia, unspecified organism Assessment/Plan IMP ACUTE HYPOXEMIC RESPIRATORY FAILURE IMPROVING LIKELY ASPIRATION PNEUMONIA ALTERED MENTAL STATUS SECONDARY TO TOXIC METABOLIC ENCEPHALOPATHY GASTROENTERITIS CELLULITIS ALZHEIMERS DEMENTIA PARKINSONS DEHYDRATION PLAN IVF ANTIBIOTICS PER ID INHALED BRONCHODILATORS SUPPLEMENTAL O2 ASPIRATION PRECAUTIONS F/U CHEST X-RAYS DR REBOLLAR
--- NOTE | 2017-09-07 14:17 | PN ---
Physical Exam: SUBJECTIVE: Patient seen and examined. OBJECTIVE: Vital Signs Period Temp Pulse Resp BP Sys/Matute Pulse Ox Last 24 Hr 99.3 F-101.6 F 90-120 16-20 141-161/56-87 94-94 GENERAL: The patient is awake, alert, and oriented to person only. No acute distress. LUNGS: Right sided rhonchi, no wheezes, scattered crackles, no accessory muscle use. HEART: Regular rate and rhythm, S1, S2 without murmur, rub or gallop. ABDOMEN: Soft, nontender, nondistended, normoactive bowel sounds, no guarding, no rebound, no hepatosplenomegaly, no masses. EXTREMITIES: 2+ pulses, warm, well-perfused, no edema. NEUROLOGICAL: Cranial nerves II through XII grossly intact. Normal speech, gait not observed. PSYCH: Normal mood, normal affect. SKIN: Warm, dry, normal turgor, no rashes or lesions noted Laboratory Results - last 24 hr 09/06/17 09/06/17 09/07/17 15:20 15:20 05:35 WBC 10.1 H RBC 3.42 L Hgb 10.7 Hct 30.8 L MCV 89.9 MCH 31.1 MCHC 34.7 RDW 14.2 Plt Count 281 MPV 9.0 PTT (Actin FS) 74.0 H D Sodium 143 Potassium 3.4 L Chloride 106 Carbon Dioxide 27 Anion Gap 10 BUN 28 H Creatinine 1.2 H Creat Clearance w eGFR 42.50 Random Glucose 117 H Calcium 7.7 L Total Bilirubin 0.5 D AST 25 D ALT 21 Alkaline Phosphatase 61 Total Protein 5.7 L Albumin 2.5 L 09/07/17 05:35 WBC RBC Hgb Hct MCV MCH MCHC RDW Plt Count MPV PTT (Actin FS) 61.1 H Sodium Potassium Chloride Carbon Dioxide Anion Gap BUN Creatinine Creat Clearance w eGFR Random Glucose Calcium Total Bilirubin AST ALT Alkaline Phosphatase Total Protein Albumin Active Medications Generic Name Dose Route Start Last Admin Trade Name Freq PRN Reason Stop Dose Admin Acetaminophen 650 mg 09/06/17 18:16 09/07/17 05:56 Tylenol - PO 650 mg Q6H PRN Administration FEVER OR PAIN Albuterol/Ipratropium 1 amp 09/05/17 16:22 09/06/17 05:35 Duoneb - NEB 1 amp Q4H PRN Administration SHORTNESS OF BREATH Amlodipine Besylate 5 mg 09/08/17 10:00 Norvasc - PO DAILY [facility] Aspirin 81 mg 09/08/17 10:00 Asa - PO DAILY [facility] Atorvastatin Calcium 10 mg 09/07/17 22:00 Lipitor - PO HS [facility] Donepezil HCl 10 mg 09/08/17 10:00 Aricept - PO DAILY [facility] Dorzolamide HCl 1 drop 09/07/17 22:00 Trusopt 2% OU BID [facility] Fluticasone Propionate 2 spray 09/08/17 10:00 Flonase - NS DAILY [facility] Heparin Sodium (Porcine) 1,000 unit 09/05/17 22:14 09/06/17 08:30 Heparin - IVPUSH 1,000 unit PRN PRN Administration Heparin Heparin Sodium (Porcine) 5,000 unit 09/05/17 22:14 Heparin - IVPUSH PRN PRN Heparin Ceftriaxone Sodium 2 gm/ 100 mls @ 200 mls/hr 09/06/17 10:00 09/07/17 10:38 Dextrose IVPB 200 mls/hr DAILY [facility] Administration Heparin Sodium/Dextrose 500 mls @ 16 mls/hr 09/05/17 22:15 09/06/17 22:43 Heparin Infusion - IVPB 18 mls/hr TITR [facility] Administration Protocol 800 UNITS/HR Potassium Chloride/Dextrose/Sod Cl 1,000 mls @ 75 mls/hr 09/06/17 09:45 10:37 D5-1/2ns+10 Meq Kcl - IV 75 mls/hr ASDIR [facility] Administration Metronidazole 100 mls @ 100 mls/hr 09/06/17 12:00 09/07/17 10:38 Flagyl 500mg Premixed Ivpb - IVPB 100 mls/hr Q8H-IV [facility] Administration Latanoprost 1 drop 09/07/17 22:00 Xalatan 0.005% Eye Drops - OD HS [facility] Losartan Potassium 100 mg 09/08/17 10:00 Cozaar - PO DAILY [facility] Mirtazapine 15 mg 09/07/17 22:00 Remeron - PO HS [facility] Pantoprazole Sodium 40 mg 09/07/17 10:00 09/07/17 10:35 Protonix Iv IVPUSH 40 mg DAILY [facility] Administration Risperidone 0.5 mg 09/07/17 22:00 Risperdal - PO HS [facility] Imaging: CXR as read by José Manuel- New right upper lobe, lower lobe consolidation with air bronchgrams. Increased lung markings noted in left retrocardiac region. Suggestion of right pleural effusion. No sign of PTX. Echo- LV size, function, EF normal. Severe TR. MRI of the brain. Clinical history: Lethargy. Sagittal, coronal and axial T1, T2 , FLAIR and diffusion-weighted images were obtained. The midline structures unremarkable. On the T2 and FLAIR images there are a few small vessel infarcts in periventricular distribution. These are area of gliosis most probably sequela of hypertension or small vessel atherosclerosis. The diffusion pulse sequence unremarkable with no evidence of acute infarction. The gradient echo pulse sequence unremarkable with no evidence of intracerebral hemorrhage, subdural fluid collection. The cerebellopontine angles unremarkable. Tortuous basilar artery compatible with atheromatous changes without severe stenosis, dissection or occlusion. Minimal loss of volume both cerebral hemisphere. Impression: Few old small vessel infarcts in periventricular distribution which may be sequela of hypertension or small vessel atherosclerosis. No evidence acute infarction. Moderate dilatation of the lateral ventricles with moderate loss of volume both cerebral hemispheres. No evidence of intra or sick or extra- axial neoplasm. No evidence of intracerebral hemorrhage, subdural fluid collection. Tortuous basilar artery with no evidence of severe stenosis, dissection or occlusion. Reported By: Richard Watson MD 09/06/176 ASSESSMENT/PLAN: A: 86yo woman with severe acute respiratory failure secondary to aspiration. P: Acute hypoxic respiratory failure 2/2 Aspiration PNA - 50% Venturi mask - Flagyl - Rocephin - Duonebs - Swallow study- able to tolerate thinned liquids while alert. ?aspiration of saliva when lethargic - ?PE- maintained on heparin gtt - Duplex doppler pending - Pulm following - ID following CAD - trop->0.05->.02->0.67->0.49 - likely demand ischemia from PNA - ASA - Losartan - Echo as above - 1 degree AV block - Cards Following AMS- metabolic syndrome - delirium vs dementia - continue Aricept - EEG pending - MRI reviewed as above - neuro following HTN - Norvasc - Cozaar F/E/N - soft diet - daily bmp - replete prn PPX - heparin gtt Dispo- requires continued inpatient treatment of her acute medical conditions Visit type - Emergency Visit Emergency Visit: Yes ED Registration Date: 09/05/17 Care time: The patient presented to the Emergency Department on the above date and was hospitalized for further evaluation of their emergent condition. - New Patient This patient is new to me today: Yes Date on this admission: 09/07/17 - Critical Care Critical Care patient: No
[2017-09-07] MEDS: ALBUTEROL SO4 2.5/IPRATROPIUM 0.5 INH SOL 3 ML VIAL.NEB. NEB PRN ×2 (14:30→22:22)
[2017-09-07] MEDS: FLUTICASONE PROP 0.05% 16 GM NASAL SPRAY NS SCH (15:48)
--- NOTE | 2017-09-07 15:51 | PN ---
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, Physician History of Present Illness: Fever spike earlier in AM. - Current Medication List Current Medications: Active Medications Acetaminophen (Tylenol -) 650 mg PO Q6H PRN PRN Reason: FEVER OR PAIN Last Admin: 09/07/17 05:56 Dose: 650 mg Albuterol/Ipratropium (Duoneb -) 1 amp NEB Q4H PRN PRN Reason: SHORTNESS OF BREATH Last Admin: 09/07/17 14:30 Dose: 1 amp Amlodipine Besylate (Norvasc -) 5 mg PO DAILY [facility] Aspirin (Asa -) 81 mg PO DAILY [facility] Atorvastatin Calcium (Lipitor -) 10 mg PO HS [facility] Donepezil HCl (Aricept -) 10 mg PO DAILY [facility] Dorzolamide HCl (Trusopt 2%) 1 drop OU BID [facility] Fluticasone Propionate (Flonase -) 2 spray NS DAILY [facility] Heparin Sodium (Porcine) (Heparin -) 1,000 unit IVPUSH PRN PRN PRN Reason: Heparin Last Admin: 09/06/17 08:30 Dose: 1,000 unit Heparin Sodium (Porcine) (Heparin -) 5,000 unit IVPUSH PRN PRN PRN Reason: Heparin Ceftriaxone Sodium 2 gm/ (Dextrose) 100 mls @ 200 mls/hr IVPB DAILY [facility] Last Admin: 09/07/17 10:38 Dose: 200 mls/hr Heparin Sodium/Dextrose (Heparin Infusion -) 500 mls @ 16 mls/hr IVPB TITR [facility] ; 800 UNITS/HR PRN Reason: Protocol Last Admin: 09/06/17 22:43 Dose: 18 mls/hr Potassium Chloride/Dextrose/Sod Cl (D5-1/2ns+10 Meq Kcl -) 1,000 mls @ 75 mls/ hr IV ASDIR [facility] Last Admin: 09/07/17 10:37 Dose: 75 mls/hr Metronidazole (Flagyl 500mg Premixed Ivpb -) 100 mls @ 100 mls/hr IVPB Q8H-IV [facility] Last Admin: 09/07/17 10:38 Dose: 100 mls/hr Latanoprost (Xalatan 0.005% Eye Drops -) 1 drop OD HS [facility] Losartan Potassium (Cozaar -) 100 mg PO DAILY [facility] Mirtazapine (Remeron -) 15 mg PO HS [facility] Pantoprazole Sodium (Protonix Iv) 40 mg IVPUSH DAILY [facility] Last Admin: 09/07/17 10:35 Dose: 40 mg Risperidone (Risperdal -) 0.5 mg PO HS [facility] - Objective Vital Signs: Vital Signs Temperature 98.7 F 09/07/17 14:33 Pulse Rate 93 H 09/07/17 14:33 Respiratory Rate 22 09/07/17 14:33 Blood Pressure 162/62 09/07/17 14:33 O2 Sat by Pulse Oximetry (%) 94 L 09/07/17 09:00 Labs: CBC, BMP 09/07/17 05:35 09/06/17 15:20 INR, PTT INR 1.08 (0.82-1.09) 09/04/17 14:40 Problem List - Problems (1) Dehydration Code(s): E86.0 - DEHYDRATION (2) Gastroenteritis Code(s): K52.9 - NONINFECTIVE GASTROENTERITIS AND COLITIS, UNSPECIFIED (3) Demand ischemia Code(s): I24.8 - OTHER FORMS OF ACUTE ISCHEMIC HEART DISEASE (4) Dementia in Alzheimer's disease Code(s): G30.9 - ALZHEIMER'S DISEASE, UNSPECIFIED F02.80 - DEMENTIA IN OTH DISEASES CLASSD ELSWHR W/O BEHAVRL DISTURB (5) Hypertensive cardiovascular disease Code(s): I11.9 - HYPERTENSIVE HEART DISEASE WITHOUT HEART FAILURE Qualifiers: Heart failure presence: without heart failure Qualified Code(s): I11.9 - Hypertensive heart disease without heart failure; I11.9 - Hypertensive heart disease without heart failure; I11.9 - Hypertensive heart disease without heart failure (6) Hyperlipidemia Code(s): E78.5 - HYPERLIPIDEMIA, UNSPECIFIED Qualifiers: Hyperlipidemia type: pure hypercholesterolemia Qualified Code(s): E78.00 - Pure hypercholesterolemia, unspecified; E78.00 - Pure hypercholesterolemia, unspecified; E78.00 - Pure hypercholesterolemia, unspecified; E78.0 - Pure hypercholesterolemia (7) Diastolic dysfunction without heart failure Code(s): I51.9 - HEART DISEASE, UNSPECIFIED (8) Fever Code(s): R50.9 - FEVER, UNSPECIFIED Qualifiers: Fever type: unspecified Qualified Code(s): R50.9 - Fever, unspecified; R50.9 - Fever, unspecified (9) Pneumonia Code(s): J18.9 - PNEUMONIA, UNSPECIFIED ORGANISM Qualifiers: Pneumonia type: due to unspecified organism Laterality: right Lung location: lower lobe of lung Qualified Code(s): J18.1 - Lobar pneumonia, unspecified organism; J18.1 - Lobar pneumonia, unspecified organism; J18.1 - Lobar pneumonia, unspecified organism (10) Severe tricuspid regurgitation Code(s): I07.1 - RHEUMATIC TRICUSPID INSUFFICIENCY Assessment/Plan 09/07/2017 Echo: Normal LV size and fxn, mod CHUCK, severe TR 1. Fever, right aspiration PNA, gastroenteritis 2. Demand ischemic injury 3. Hypertension 4. Pulmonary hypertension 5. Toxic-metabolic encephelopthy with underlying dementia of Alzheimers Type P:1. IVF, cardic enzymes have peaked, d/c heparin gtt->heparin sc 2. Continue Norvasc 5 qd, ASA 81 qd, losartan 100 qd, Lipitor 10 qhs, hold Lasix 20 qd for now, replete K 3. Empiric abx course pending C&S, BD, O2 as needed
--- NOTE | 2017-09-07 17:52 | PN ---
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 (short form) - Note 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: Patient was seen earlier today around 9.0 am 86 year old female history of htn, hyperlipidemia, glaucoma , hearing loss. Patient is able to walk with walker at . she was brought in for right leg redness and swelling. She is very sleepy but aroussable. Spoke to Dr rodrigues , she had been foaming through mouth and there was no witnessed seizures. Patient is moving all etremity and denies any headhace. She has been started on antibiotics. She had fever of 103. Patient has been very sleepy.Patient has suspected diagnosis of parkinson disease but not being treated Patient is much brighter and more communicative and still remain confused Ct head is unremarkable, and hospitalist was concern about seizure or stroke Neurological Examination more alert than yesterday able to follow simple command, speech is normal eomi, no face asymmetry, eomi and moving all extremity, neck is supple moving all extremity sensation is normal she has right leg swelling and redness and very warm extremity Ct head is unremarkable , showed white matter disease Assessment-- delirium secondary to pneumonia and cellulitis, less likely to be status or stroke, clinically she has improved and still remain confused, she has history of alzheimer disease Plan continue antibiotic as per ID -would follow up on eeg - continue supportive treatment - pulmonary and speech consult appreciated. Thank nolan Glaser MD
[2017-09-07] MEDS: MIRTAZAPINE 15 MG TABLET (FP) PO SCH (23:39)
[2017-09-07] MEDS: ATORVASTATIN CA 10 MG TABLET (FP) PO SCH (23:39)
[2017-09-07] MEDS: HEPARIN NA (PORCINE) 5,000 UNITS/ML 1ML VIAL SQ SCH (23:39)
[2017-09-07] MEDS: risperiDONE 0.5 MG TABLET (FP) PO SCH (23:40)
[2017-09-08] MEDS: METRONIDAZOLE 500 MG PREMIXED 100 ML IVPB SCH ×2 (01:07→09:17)
[2017-09-08] MEDS: ALBUTEROL SO4 2.5/IPRATROPIUM 0.5 INH SOL 3 ML VIAL.NEB. NEB PRN (06:46)
[2017-09-08 08:24] LABS: EOSINOPHIL 2.9 % (0-4.5); MCH 29.5 pg (25.7-33.7); MCHC 33.7 g/dl (32.0-36.0); MEAN CELL VOLUME 87.6 fl (80-96); MEAN PLT VOLUME 8.4 fl (7.5-11.1); NEUTROPHILS 71.6 % (42.8-82.8); PLATELET COUNT 319 K/MM3 (134-434); RDW 14.1 % (11.6-15.6); WHITE BLOOD COUNT 9.6 K/mm3 (4.0-10.0)
[2017-09-08 08:54] LABS: ALBUMIN 2.4 g/dl (3.4-5.0); ALK PHOS 76 U/L (45-117); ANION GAP 7 (8-16); BILIRUBIN,TOTAL 0.5 mg/dL (0.2-1.0); CALCIUM 7.8 mg/dL (8.5-10.1); CO2 28 mmol/L (21-32); CREATININE 0.8 mg/dL (0.55-1.02); GLUCOSE,RANDOM 105 mg/dL (74-106); SGOT/AST 19 U/L (15-37); SGPT/ALT 19 U/L (12-78); TOT PROT 6.1 g/dl (6.4-8.2)
[2017-09-08] MEDS ORDERED: PT OWN MED DRAWER 7, Y5N ONE ×2 (09:08→22:27)
[2017-09-08] MEDS: PANTOPRAZOLE SODIUM 40 MG VIAL IVPUSH SCH (09:18)
[2017-09-08] MEDS: CEFTRIAXONE 2 GM in DEXTROSE 5%-WATER - 100 ML IVPB SCH (09:18)
[2017-09-08] MEDS: HEPARIN NA (PORCINE) 5,000 UNITS/ML 1ML VIAL SQ SCH ×2 (09:18→22:37)
[2017-09-08] MEDS: LOSARTAN POTASSIUM 50 MG TABLET (FP) PO SCH (09:22)
[2017-09-08] MEDS: DONEPEZIL HCL 10 MG TABLET (FP) PO SCH (09:22)
[2017-09-08] MEDS: ASPIRIN 81 MG CHEWABLE TABLETS PO SCH (09:22)
[2017-09-08] MEDS: DORZOLAMIDE 2% HCL OPHTHALMIC SOLUTION 10 ML BOTTLE OU SCH ×2 (09:23→22:37)
[2017-09-08] MEDS: FLUTICASONE PROP 0.05% 16 GM NASAL SPRAY NS SCH (09:23)
[2017-09-08] MEDS: amLODIPine BESYLATE 5 MG TABLET (FP) PO SCH (09:23)
--- NOTE | 2017-09-08 09:52 | PN ---
Physical Exam: SUBJECTIVE: In AM patient spiked fever 101.4, new Bcx ordered, LA ordered ( normal), Ucx ordered. O2 sat dropping to low 90s. Now on ventimask. Looks more lethargic this AM. Not responding to questions, but opens eyes. OBJECTIVE: Vital Signs Period Temp Pulse Resp BP Sys/Matute Pulse Ox Last 24 Hr 98.7 F-101.4 F 92-114 20-22 122-162/62-89 94 GEN: Lying in bed with ventimask, opens eyes, does not respond to questions HEENT: PERRLA CV: S1, S2, 3/6 systolic murmur LUNG: R sided crackles/rhonchi ABD: Soft, NT, ND, normoactive BS MSK: No edema, mild BLLE pink/red rash Active Medications Generic Name Dose Route Start Last Admin Trade Name Freq PRN Reason Stop Dose Admin Acetaminophen 650 mg 09/08/17 06:35 Tylenol Suppository - GA Q6H PRN FEVER OR PAIN Albuterol/Ipratropium 1 amp 09/05/17 16:22 09/08/17 06:46 Duoneb - NEB 1 amp Q4H PRN Administration SHORTNESS OF BREATH Amlodipine Besylate 5 mg 09/08/17 10:00 09/08/17 09:23 Norvasc - PO Not Given DAILY [facility] Aspirin 81 mg 09/08/17 10:00 09/08/17 09:22 Asa - PO Not Given DAILY [facility] Atorvastatin Calcium 10 mg 09/07/17 22:00 09/07/17 23:39 Lipitor - PO 10 mg HS [facility] Administration Donepezil HCl 10 mg 09/08/17 10:00 09/08/17 09:22 Aricept - PO Not Given DAILY [facility] Dorzolamide HCl 1 drop 09/07/17 22:00 09/08/17 09:23 Trusopt 2% OU 1 drop BID [facility] Administration Fluticasone Propionate 2 spray 09/08/17 10:00 09/08/17 09:23 Flonase - NS Not Given DAILY [facility] Heparin Sodium (Porcine) 5,000 unit 09/07/17 22:00 09/08/17 09:18 Heparin - SQ 5,000 unit BID [facility] Administration Ceftriaxone Sodium 2 gm/ 100 mls @ 200 mls/hr 09/06/17 10:00 09/08/17 09:18 Dextrose IVPB 200 mls/hr DAILY [facility] Administration Potassium Chloride/Dextrose/Sod Cl 1,000 mls @ 75 mls/hr 09/06/17 09:45 23:40 D5-1/2ns+10 Meq Kcl - IV 75 mls/hr ASDIR [facility] Administration Metronidazole 100 mls @ 100 mls/hr 09/06/17 12:00 09/08/17 09:17 Flagyl 500mg Premixed Ivpb - IVPB 100 mls/hr Q8H-IV [facility] Administration Latanoprost 1 drop 09/07/17 22:00 09/07/17 23:39 Xalatan 0.005% Eye Drops - OD 1 drop HS [facility] Administration Losartan Potassium 100 mg 09/08/17 10:00 09/08/17 09:22 Cozaar - PO Not Given DAILY [facility] Mirtazapine 15 mg 09/07/17 22:00 09/07/17 23:39 Remeron - PO 15 mg HS [facility] Administration Pantoprazole Sodium 40 mg 09/07/17 10:00 09/08/17 09:18 Protonix Iv IVPUSH 40 mg DAILY [facility] Administration Risperidone 0.5 mg 09/07/17 22:00 09/07/17 23:40 Risperdal - PO 0.5 mg HS [facility] Administration CBC, BMP 09/08/17 05:35 09/08/17 05:35 Microbiology 09/06/17 05:30 Nasopharyngeal Swab Influenza Types A,B Antigen (SUSANNAH) - Final 09/06/17 05:30 Nasopharyngeal Swab - Final 09/04/17 14:40 Urine - Urine Clean Catch Urine Culture - Final NO GROWTH OBTAINED 09/04/17 14:40 Blood - Peripheral Venous Blood Culture - Preliminary NO GROWTH OBTAINED AFTER 48 HOURS, INCUBATION TO CONTINUE FOR 3 DAYS. 09/04/17 14:40 Blood - Peripheral Venous Blood Culture - Preliminary NO GROWTH OBTAINED AFTER 48 HOURS, INCUBATION TO CONTINUE FOR 3 DAYS. ASSESSMENT/PLAN: Pt is an 86yo F with PMHx of Pulmonary HTN, HLD, 1st degree AVB, hearing loss, Alzheimers, who presented from [facility] facility for increasing weakness, lethargy, diarrhea. # Likely Aspiration PNA - RUL and RLL infiltrates - Continues to spike fevers (?continued aspiration) - On Ceftriaxone/Flagyl, but still spiking fevers, unable to get sputum cx - Will switch abx to Ertapenam 1g QD to broaden coverage - F/u BCx - Continue supportive O2 Discussed w/ Dr Thomas, will follow. Tawny Timmons MD - PGY1 Infectious Disease Visit type - Emergency Visit Emergency Visit: No - New Patient This patient is new to me today: No - Critical Care Critical Care patient: No - Discharge Referral Referred to [facility] Med P.C[facility] No
[2017-09-08] MEDS: D5-1/2NS+10 MEQ KCL - 1,000 ML IV SCH (10:00)
[2017-09-08] MEDS ORDERED: ALBUTEROL SO4 2.5/IPRATROPIUM 0.5 INH SOL 3 ML VIAL.NEB. NEB ONE (10:10)
--- NOTE | 2017-09-08 10:11 | PN ---
Physical Exam: SUBJECTIVE: Patient seen and examined at the bedside. Called by primary RN for patient having increased work of breathing on a venti mask. OBJECTIVE: Patient with fevers of 101.4F on antibiotics. Blood cultures/urine culture ordered by night team. Oxygen saturations dropping to low 90s on venti mask Looks more lethargic, opens eyes to questions but easily falls back to sleep. Patient noted to have labored breathing with abdominal muscles She has a history of pulmonary hypertension Scattered rhonchi auscultated on bilateral lungs Plan: ABG stat, Chest xray stat, Lasix 40mg x 1 now, haq catheter, stop IVFs NPO for now until more awake Vital Signs Period Temp Pulse Resp BP Sys/Matute Pulse Ox Last 24 Hr 98.7 F-101.4 F 93-114 20-22 122-162/62-89 94 GENERAL: Remains lethargic, poor historian 2/2 to alzheimers dementia, responsive to tactile stimuli but only minimally HEAD: Normal with no signs of trauma, CT head negative EARS, NOSE, THROAT: Ears normal, nares patent, oropharynx clear without exudates. Moist mucous membranes. NECK: Normal range of motion, supple without lymphadenopathy, JVD, or masses. LUNGS: scattered rhonchi thorughout lung penny, congestion ABDOMEN: Soft, nontender, mildly distended, +bowel sounds, no guarding, no rebound, no masses. No hepatomegaly or splenomegaly. MUSCULOSKELETAL: Normal range of motion at all joints. No bony deformities or tenderness. No CVA tenderness. UPPER EXTREMITIES: 2+ pulses, warm, well-perfused. No cyanosis. No clubbing. No peripheral edema. LOWER EXTREMITIES: +1 edema, RLE warm to touch now with mild redness right lower ext, +cellulitis/doppler studies negative NEUROLOGICAL: lethargic, hx of alzhemiers dementia Laboratory Results - last 24 hr 09/08/17 09/08/17 09/08/17 05:30 05:35 05:35 WBC 9.6 RBC 3.59 L Hgb 10.6 L Hct 31.4 L MCV 87.6 MCH 29.5 MCHC 33.7 RDW 14.1 Plt Count 319 MPV 8.4 Neutrophils % 71.6 Lymphocytes % 16.0 Monocytes % 8.5 Eosinophils % 2.9 D Basophils % 1.0 PTT (Actin FS) Sodium Potassium Chloride Carbon Dioxide Anion Gap BUN Creatinine Creat Clearance w eGFR Random Glucose Lactic Acid 0.9 Calcium Total Bilirubin AST ALT Alkaline Phosphatase Total Protein Albumin Stool Occult Blood Negative 09/08/17 09/08/17 05:35 06:00 WBC RBC Hgb Hct MCV MCH MCHC RDW Plt Count MPV Neutrophils % Lymphocytes % Monocytes % Eosinophils % Basophils % PTT (Actin FS) 33.1 D Sodium 142 Potassium 3.3 L Chloride 107 Carbon Dioxide 28 Anion Gap 7 L BUN 13 D Creatinine 0.8 D Creat Clearance w eGFR > 60 Random Glucose 105 Lactic Acid Calcium 7.8 L Total Bilirubin 0.5 AST 19 D ALT 19 Alkaline Phosphatase 76 D Total Protein 6.1 L Albumin 2.4 L Stool Occult Blood Active Medications Generic Name Dose Route Start Last Admin Trade Name Freq PRN Reason Stop Dose Admin Acetaminophen 650 mg 09/08/17 06:35 Tylenol Suppository - MD Q6H PRN FEVER OR PAIN Albuterol/Ipratropium 1 amp 09/05/17 16:22 09/08/17 06:46 Duoneb - NEB 1 amp Q4H PRN Administration SHORTNESS OF BREATH Albuterol/Ipratropium 1 amp 09/08/17 10:10 Duoneb - NEB 09/08/17 10:11 ONCE ONE Amlodipine Besylate 5 mg 09/08/17 10:00 09/08/17 09:23 Norvasc - PO Not Given DAILY [facility] Aspirin 81 mg 09/08/17 10:00 09/08/17 09:22 Asa - PO Not Given DAILY [facility] Atorvastatin Calcium 10 mg 09/07/17 22:00 09/07/17 23:39 Lipitor - PO 10 mg HS [facility] Administration Donepezil HCl 10 mg 09/08/17 10:00 09/08/17 09:22 Aricept - PO Not Given DAILY [facility] Dorzolamide HCl 1 drop 09/07/17 22:00 09/08/17 09:23 Trusopt 2% OU 1 drop BID [facility] Administration Fluticasone Propionate 2 spray 09/08/17 10:00 09/08/17 09:23 Flonase - NS Not Given DAILY [facility] Furosemide 40 mg 09/08/17 10:09 Lasix Injection - IVPUSH 09/08/17 10:10 ONCE ONE Heparin Sodium (Porcine) 5,000 unit 09/07/17 22:00 09/08/17 09:18 Heparin - SQ 5,000 unit BID [facility] Administration Ceftriaxone Sodium 2 gm/ 100 mls @ 200 mls/hr 09/06/17 10:00 09/08/17 09:18 Dextrose IVPB 200 mls/hr DAILY [facility] Administration Metronidazole 100 mls @ 100 mls/hr 09/06/17 12:00 09/08/17 09:17 Flagyl 500mg Premixed Ivpb - IVPB 100 mls/hr Q8H-IV [facility] Administration Potassium Chloride 100 mls @ 100 mls/hr 09/08/17 10:15 Potassium Chloride 10 Meq Premix Ivpb - IVPB 09/08/17 12:14 Q60M [facility] Latanoprost 1 drop 09/07/17 22:00 09/07/17 23:39 Xalatan 0.005% Eye Drops - OD 1 drop HS [facility] Administration Losartan Potassium 100 mg 09/08/17 10:00 09/08/17 09:22 Cozaar - PO Not Given DAILY [facility] Mirtazapine 15 mg 09/07/17 22:00 09/07/17 23:39 Remeron - PO 15 mg HS [facility] Administration Pantoprazole Sodium 40 mg 09/07/17 10:00 09/08/17 09:18 Protonix Iv IVPUSH 40 mg DAILY [facility] Administration Risperidone 0.5 mg 09/07/17 22:00 09/07/17 23:40 Risperdal - PO 0.5 mg HS [facility] Administration ASSESSMENT/PLAN: Patient is an 86 year old female with a significant past medical history of pulmonary HTN, hypertension, HLD, glaucoma, 1st degree AV block, hearing loss alzheimer's disease and anemia. She presents to the ED from her assisted living facility for increased weakness, lethargy and diarrhea. Due to the patient's dementia and hearing impairment, she is not a good historian. Per ED , the patient has been having diarrhea over the past 2 days prior to admission. She began experiencing worsening weakness and appearing more lethargic and nausea and an episode of non-bilious, non-bloody vomiting per ED notess. The facility then called EMS. The patient denies any fevers, chills, chest pain, SOB, or abdominal pain. She was also noted to have redness of bilateral lower extremities, right > left on admission. ID consulted for possible celllulitis of RLE. 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 Imaging: Head CT r/o stroke, negative, awaiting brain MRI study Chest xray 09/06/2017: New right upper lobe, RLL consolidation with bronchograms , increased lung markings noted on left retrocardiac region, suggestion of right pleural effusion, no pneumothorax seen. 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 RLE cellulitis (or both) vs. other source A/P: Chest xray suggests pneumonia, right lower ext, now warm to touch, seems to be improving with the IV antibiotics Blood and urine cultures pending, but no growth to date, repeat blood/urine cultures pending Lactic acid within normal limits, remains febrile tmax 101.4F WBC trended up, then now normalized with repeat labs On Ertapenem IV ID following Neuro: Metabolic Encephalopathy likely secondary to fever, sepsis in the setting of alzheimers dementia A/P: Patient continues to be lethargic today, opens eyes to tactile stimuli ABG reviewed Chest xray suggestive of pneumonia, likely aspiration pneumonia Head CT negative Neuro following, as per neuro, seizure not likely Brain MRI as above Cardiology: Pulmonary Hypertension/Hypertension A/P: Monitor for fluid overload 1st degree AV block, chronic A/P: On chief of surgery, afib?, ekg to confirm Elevated Troponins A/P: 0.05>0.21>0.67 >0.49 Heparin drip stopped, now on SC heparin Cardiology following Pulmonary: Aspiration pneumonia, shortness of breath/New right upper lobe, RLL consolidation, acute A/P: Now on a venti mask On Ertapenem Pulm consulted and following Right lower ext rule out DVT, ruled out A/P: VQ scan as per Pulmonary GI: Dehydration secondary to diarrhea episodes/non bilious vomiting/nausea, now resolved A/P: Patient reported to been having diarrhea over past 2 days prior to admission, now has not had any Stool studies, cdiff ordered, ova and parasites Monitor labs, replete electrolytes Protonix daily Consider GI consult if symptoms persist F.E.N. Fluids: NPO Electrolytes: monitor Nutrition: NPO Prophylaxis: DVT: Heparin sc GI: Protonix Disposition. Patient was initially OBS for dehydration, but converted to inpatient for an admitting diagnosis of sepsis. Full code.
[2017-09-08 10:32] LABS: ARTERIAL BLD GAS O2 SATURATION 97.1 % (90-98.9); ARTERIAL BLOOD GAS HCO3 26.8 meq/L (22-26); ARTERIAL BLOOD GAS pH 7.44 (7.35-7.45)
[2017-09-08 10:33] LABS: ALLENS TEST POSITIVE; ART PUNCT SITE RIGHT RADIAL; LPM/O2% 50%; PT. ON O2? YES; TYPE OF O2 VENTIMASK
--- NOTE | 2017-09-08 11:26 | PN ---
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, Physician Chief Complaint: ID Febrile again 101 Ceftriaxone and metronidazole - Current Medication List Current Medications: Active Medications Acetaminophen (Tylenol Suppository -) 650 mg [place] Q6H PRN PRN Reason: FEVER OR PAIN Albuterol/Ipratropium (Duoneb -) 1 amp NEB Q4H PRN PRN Reason: SHORTNESS OF BREATH Last Admin: 09/08/17 06:46 Dose: 1 amp Amlodipine Besylate (Norvasc -) 5 mg PO DAILY [facility] Last Admin: 09/08/17 09:23 Dose: Not Given Aspirin (Asa -) 81 mg PO DAILY [facility] Last Admin: 09/08/17 09:22 Dose: Not Given Atorvastatin Calcium (Lipitor -) 10 mg PO HS [facility] Last Admin: 09/07/17 23:39 Dose: 10 mg Donepezil HCl (Aricept -) 10 mg PO DAILY [facility] Last Admin: 09/08/17 09:22 Dose: Not Given Dorzolamide HCl (Trusopt 2%) 1 drop OU BID [facility] Last Admin: 09/08/17 09:23 Dose: 1 drop Fluticasone Propionate (Flonase -) 2 spray NS DAILY [facility] Last Admin: 09/08/17 09:23 Dose: Not Given Furosemide (Lasix Injection -) 40 mg IVPUSH ONCE ONE Stop: 09/08/17 11:31 Heparin Sodium (Porcine) (Heparin -) 5,000 unit SQ BID [facility] Last Admin: 09/08/17 09:18 Dose: 5,000 unit Ceftriaxone Sodium 2 gm/ (Dextrose) 100 mls @ 200 mls/hr IVPB DAILY [facility] Last Admin: 09/08/17 09:18 Dose: 200 mls/hr Metronidazole (Flagyl 500mg Premixed Ivpb -) 100 mls @ 100 mls/hr IVPB Q8H-IV [facility] Last Admin: 09/08/17 09:17 Dose: 100 mls/hr Potassium Chloride (Potassium Chloride 10 Meq Premix Ivpb -) 100 mls @ 100 mls/ hr IVPB Q60M [facility] Stop: 09/08/17 13:29 Latanoprost (Xalatan 0.005% Eye Drops -) 1 drop OD HS [facility] Last Admin: 09/07/17 23:39 Dose: 1 drop Losartan Potassium (Cozaar -) 100 mg PO DAILY [facility] Last Admin: 09/08/17 09:22 Dose: Not Given Mirtazapine (Remeron -) 15 mg PO HS [facility] Last Admin: 09/07/17 23:39 Dose: 15 mg Pantoprazole Sodium (Protonix Iv) 40 mg IVPUSH DAILY [facility] Last Admin: 09/08/17 09:18 Dose: 40 mg Risperidone (Risperdal -) 0.5 mg PO HS [facility] Last Admin: 09/07/17 23:40 Dose: 0.5 mg - Objective Vital Signs: Vital Signs Temperature 101.4 F H 09/08/17 06:00 Pulse Rate 108 H 09/08/17 06:00 Respiratory Rate 22 09/08/17 06:00 Blood Pressure 158/79 09/08/17 06:00 O2 Sat by Pulse Oximetry (%) 94 L 09/07/17 22:00 Constitutional: Yes: No Distress HENT: Yes: WNL, Atraumatic Neck: Yes: WNL, Supple Cardiovascular: Yes: Regular Rate and Rhythm, S1, S2. No: Murmur Respiratory: Yes: WNL, Regular, CTA Bilaterally. No: Rales, Rhonchi Gastrointestinal: Yes: WNL, Normal Bowel Sounds, Soft. No: Tenderness, Tenderness, Epigastrium Edema: No Labs: CBC, BMP 09/08/17 05:35 09/08/17 05:35 INR, PTT INR 1.08 (0.82-1.09) 09/04/17 14:40 Problem List - Problems (1) Dehydration Code(s): E86.0 - DEHYDRATION (2) Gastroenteritis Code(s): K52.9 - NONINFECTIVE GASTROENTERITIS AND COLITIS, UNSPECIFIED (3) Cellulitis Code(s): L03.90 - CELLULITIS, UNSPECIFIED Assessment/Plan Laboratory Tests 09/08/17 09/08/17 05:35 05:35 WBC 9.6 Hgb 10.6 L Hct 31.4 L Plt Count 319 BUN 13 D Creatinine 0.8 D Creat Clearance w eGFR > 60 Assessment Current antibiotic coverage completely appropriate Spiking fevers secondary PNA Aspiration possible despite swallowing study Plan Broaden coverage Ertepenem Lu MARR
[2017-09-08] MEDS ORDERED: FUROSEMIDE 40 MG/4 ML INJECTABLE VIAL IVPUSH ONE (11:30)
[2017-09-08] MEDS: KCL 10 MEQ IVPB 100 ML IVPB SCH ×2 (11:42→12:46)
--- NOTE | 2017-09-08 12:01 | PN ---
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 (short form) - Note 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: PULMONARY Somnolent on ventimask 50% FiO2. Febrile this AM. Last Vital Signs Temp Pulse Resp BP Pulse Ox 101.4 F H 108 H 22 158/79 94 L 09/08/17 06:00 09/08/17 06:00 09/08/17 06:00 09/08/17 06:00 09/07/17 22:00 Intake & Output 09/05/17 09/06/17 09/07/17 09/08/17 23:59 23:59 23:59 23:59 Intake Total 370 525 425 Output Total 75 Balance 370 525 350 Weight 124 lb 15.998 oz Gen: somnolent, breathing nonlabored Heart: RRR Lung: decreased breath sounds at the bases Abd: soft, nontender Ext: no edema CBC, BMP 09/08/17 05:35 09/08/17 05:35 Active Medications Acetaminophen (Tylenol Suppository -) 650 mg [place] Q6H PRN PRN Reason: FEVER OR PAIN Albuterol/Ipratropium (Duoneb -) 1 amp NEB Q4H PRN PRN Reason: SHORTNESS OF BREATH Last Admin: 09/08/17 06:46 Dose: 1 amp Amlodipine Besylate (Norvasc -) 5 mg PO DAILY [facility] Last Admin: 09/08/17 09:23 Dose: Not Given Aspirin (Asa -) 81 mg PO DAILY [facility] Last Admin: 09/08/17 09:22 Dose: Not Given Atorvastatin Calcium (Lipitor -) 10 mg PO HS [facility] Last Admin: 09/07/17 23:39 Dose: 10 mg Donepezil HCl (Aricept -) 10 mg PO DAILY [facility] Last Admin: 09/08/17 09:22 Dose: Not Given Dorzolamide HCl (Trusopt 2%) 1 drop OU BID [facility] Last Admin: 09/08/17 09:23 Dose: 1 drop Fluticasone Propionate (Flonase -) 2 spray NS DAILY [facility] Last Admin: 09/08/17 09:23 Dose: Not Given Heparin Sodium (Porcine) (Heparin -) 5,000 unit SQ BID [facility] Last Admin: 09/08/17 09:18 Dose: 5,000 unit Potassium Chloride (Potassium Chloride 10 Meq Premix Ivpb -) 100 mls @ 100 mls/ hr IVPB Q60M [facility] Stop: 09/08/17 13:29 Last Admin: 09/08/17 11:42 Dose: 100 mls/hr Ertapenem 1 gm/ Sodium (Chloride) 50 mls @ 50 mls/hr IVPB DAILY [facility] PRN Reason: Protocol Latanoprost (Xalatan 0.005% Eye Drops -) 1 drop OD HS [facility] Last Admin: 09/07/17 23:39 Dose: 1 drop Losartan Potassium (Cozaar -) 100 mg PO DAILY [facility] Last Admin: 09/08/17 09:22 Dose: Not Given Mirtazapine (Remeron -) 15 mg PO HS [facility] Last Admin: 09/07/17 23:39 Dose: 15 mg Pantoprazole Sodium (Protonix Iv) 40 mg IVPUSH DAILY [facility] Last Admin: 09/08/17 09:18 Dose: 40 mg Risperidone (Risperdal -) 0.5 mg PO HS [facility] Last Admin: 09/07/17 23:40 Dose: 0.5 mg A/P Pneumonia +Troponins likely demand ischemia HTN Pulmonary HTN Parkinsons Dementia - continue antibiotics - aspiration precautions - O2 to keep SpO2 >90% - inhaled bronchodilators as needed - replete lytes - DVT prophylaxis
--- NOTE | 2017-09-08 13:34 | PN ---
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, [employer]IST - Note 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: Selected Entries 09/07/17 09/07/17 09/07/17 02:00 06:00 10:00 Breakfast Lunch Supper Temperature 99.5 F 101.6 F H 99.8 F H 09/07/17 09/07/17 09/07/17 10:30 14:33 18:29 Breakfast 75% 75% Lunch 75% 75% Supper Temperature 98.7 F 99.5 F 09/07/17 09/07/17 09/08/17 22:00 22:53 01:51 Breakfast Lunch Supper 0 Temperature 98.9 F 99.1 F 09/08/17 09/08/17 09/08/17 06:00 09:00 11:12 Breakfast NPO Lunch Supper Temperature 101.4 F H 99.8 F H Per ID:Current antibiotic coverage completely appropriate Spiking fevers secondary PNA Aspiration possible despite swallowing study Pt lethargic.Febrile. Now NPO.
[2017-09-08] MEDS ORDERED: KCL 10 MEQ IVPB 100 ML IVPB SCH (16:30)
--- NOTE | 2017-09-08 17:59 | PN ---
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, Physician Chief Complaint: Events noted Underlying dementia Remains febrile History of Present Illness: Patient was seen and examined. Awake. Chart was reviewed Denies chest pain, SOB or palpitations - Current Medication List Current Medications: Active Medications Acetaminophen (Tylenol Suppository -) 650 mg [place] Q6H PRN PRN Reason: FEVER OR PAIN Albuterol/Ipratropium (Duoneb -) 1 amp NEB Q4H PRN PRN Reason: SHORTNESS OF BREATH Last Admin: 09/08/17 06:46 Dose: 1 amp Amlodipine Besylate (Norvasc -) 5 mg PO DAILY [facility] Last Admin: 09/08/17 09:23 Dose: Not Given Aspirin (Asa -) 81 mg PO DAILY [facility] Last Admin: 09/08/17 09:22 Dose: Not Given Atorvastatin Calcium (Lipitor -) 10 mg PO HS [facility] Last Admin: 09/07/17 23:39 Dose: 10 mg Donepezil HCl (Aricept -) 10 mg PO DAILY [facility] Last Admin: 09/08/17 09:22 Dose: Not Given Dorzolamide HCl (Trusopt 2%) 1 drop OU BID [facility] Last Admin: 09/08/17 09:23 Dose: 1 drop Fluticasone Propionate (Flonase -) 2 spray NS DAILY [facility] Last Admin: 09/08/17 09:23 Dose: Not Given Heparin Sodium (Porcine) (Heparin -) 5,000 unit SQ BID [facility] Last Admin: 09/08/17 09:18 Dose: 5,000 unit Ertapenem 1 gm/ Sodium (Chloride) 50 mls @ 50 mls/hr IVPB DAILY [facility] PRN Reason: Protocol Latanoprost (Xalatan 0.005% Eye Drops -) 1 drop OD HS [facility] Last Admin: 09/07/17 23:39 Dose: 1 drop Losartan Potassium (Cozaar -) 100 mg PO DAILY [facility] Last Admin: 09/08/17 09:22 Dose: Not Given Mirtazapine (Remeron -) 15 mg PO HS [facility] Last Admin: 09/07/17 23:39 Dose: 15 mg Pantoprazole Sodium (Protonix Iv) 40 mg IVPUSH DAILY [facility] Last Admin: 09/08/17 09:18 Dose: 40 mg Risperidone (Risperdal -) 0.5 mg PO HS [facility] Last Admin: 09/07/17 23:40 Dose: 0.5 mg - Objective Vital Signs: Vital Signs Temperature 99.9 F H 09/08/17 14:06 Pulse Rate 92 H 09/08/17 14:06 Respiratory Rate 24 09/08/17 14:06 Blood Pressure 140/71 09/08/17 14:06 O2 Sat by Pulse Oximetry (%) 95 09/08/17 09:00 Neck: Yes: Supple Cardiovascular: Yes: Regular Rate and Rhythm, S1, S2 Respiratory: Yes: Diminished Gastrointestinal: Yes: Normal Bowel Sounds, Soft. No: Tenderness Edema: No Labs: CBC, BMP 09/08/17 05:35 Problem List - Problems (1) Acute respiratory failure with hypoxia Code(s): J96.01 - ACUTE RESPIRATORY FAILURE WITH HYPOXIA (2) Demand ischemia Code(s): I24.8 - OTHER FORMS OF ACUTE ISCHEMIC HEART DISEASE (3) Dementia in Alzheimer's disease Code(s): G30.9 - ALZHEIMER'S DISEASE, UNSPECIFIED F02.80 - DEMENTIA IN OTH DISEASES CLASSD ELSWHR W/O BEHAVRL DISTURB (4) Diastolic dysfunction without heart failure Code(s): I51.9 - HEART DISEASE, UNSPECIFIED (5) Fever Code(s): R50.9 - FEVER, UNSPECIFIED Qualifiers: Fever type: unspecified Qualified Code(s): R50.9 - Fever, unspecified; R50.9 - Fever, unspecified (6) Gastroenteritis Code(s): K52.9 - NONINFECTIVE GASTROENTERITIS AND COLITIS, UNSPECIFIED (7) Hyperlipidemia Code(s): E78.5 - HYPERLIPIDEMIA, UNSPECIFIED Qualifiers: Hyperlipidemia type: pure hypercholesterolemia Qualified Code(s): E78.00 - Pure hypercholesterolemia, unspecified; E78.00 - Pure hypercholesterolemia, unspecified; E78.00 - Pure hypercholesterolemia, unspecified; E78.0 - Pure hypercholesterolemia (8) Hypertensive cardiovascular disease Code(s): I11.9 - HYPERTENSIVE HEART DISEASE WITHOUT HEART FAILURE Qualifiers: Heart failure presence: without heart failure Qualified Code(s): I11.9 - Hypertensive heart disease without heart failure; I11.9 - Hypertensive heart disease without heart failure; I11.9 - Hypertensive heart disease without heart failure (9) Pneumonia Code(s): J18.9 - PNEUMONIA, UNSPECIFIED ORGANISM Qualifiers: Pneumonia type: due to unspecified organism Laterality: right Lung location: lower lobe of lung Qualified Code(s): J18.1 - Lobar pneumonia, unspecified organism; J18.1 - Lobar pneumonia, unspecified organism; J18.1 - Lobar pneumonia, unspecified organism Assessment/Plan 1. Fever due to sepsis, etiology to be determined, possible RUL and RLL pneumonia 2. Demand ischemic injury 3. Hypertension 4. Pulmonary hypertension 5. Dementia of Alzheimer's Type PLAN: 1. Continue IV fluids 2. Transthoracic echocardiography revealed normal LV systolic function with severe TR 3. Continue Norvasc 5 qd, ASA 81 qd, Losartan 100 qd and Lipitor 4. Empiric antibiotic course and fever work up. ID input noted Further plans are to follow Larry Velasco MD
[2017-09-08] MEDS: LATANOPROST 0.005% OPHTH SOLN 2.5ML BOTTLE OD SCH (22:36)
[2017-09-08] MEDS: MIRTAZAPINE 15 MG TABLET (FP) PO SCH ×2 (22:37→22:46)
[2017-09-08] MEDS: risperiDONE 0.5 MG TABLET (FP) PO SCH ×2 (22:37→22:46)
[2017-09-08] MEDS: ATORVASTATIN CA 10 MG TABLET (FP) PO SCH ×2 (22:37→22:46)
[2017-09-09] MEDS: ACETAMINOPHEN 650 MG SUPP.RECT PR PRN (00:27)
[2017-09-09 07:26] LABS: MCH 29.3 pg (25.7-33.7); MCHC 33.6 g/dl (32.0-36.0); MEAN CELL VOLUME 87.1 fl (80-96); MEAN PLT VOLUME 7.9 fl (7.5-11.1); PLATELET COUNT 384 K/MM3 (134-434)
--- NOTE | 2017-09-09 07:42 | PN ---
Physical Exam: SUBJECTIVE: Patient seen and examined, responsive to sternal rub. 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 Moist mucous membranes. NECK: Normal range of motion, supple without lymphadenopathy, JVD, or masses. LUNGS: scattered rhonchi thorughout lung penny, congestion ABDOMEN: Soft, nontender, mildly distended, +bowel sounds, no guarding, no rebound, no masses. No hepatomegaly or splenomegaly. MUSCULOSKELETAL: Normal range of motion at all joints. No bony deformities or tenderness. No CVA tenderness. UPPER EXTREMITIES: 2+ pulses, warm, well-perfused. No cyanosis. No clubbing. No peripheral edema. LOWER EXTREMITIES: +1 edema, RLE warm to touch now with mild redness right lower ext, +cellulitis/doppler studies negative NEUROLOGICAL: lethargic, hx of alzhemiers dementia Laboratory Results - last 24 hr 09/08/17 09/08/17 09/08/17 05:30 05:35 05:35 WBC 9.6 RBC 3.59 L Hgb 10.6 L Hct 31.4 L MCV 87.6 MCH 29.5 MCHC 33.7 RDW 14.1 Plt Count 319 MPV 8.4 Neutrophils % 71.6 Lymphocytes % 16.0 Monocytes % 8.5 Eosinophils % 2.9 D Basophils % 1.0 PTT (Actin FS) Puncture Site ABG pH ABG pCO2 at Pt Temp ABG pO2 at Pt Temp ABG HCO3 ABG O2 Sat (Measured) ABG O2 Content ABG Base Excess Gwyn Test O2 Delivery Device Oxygen Flow Rate PEEP Sodium Potassium Chloride Carbon Dioxide Anion Gap BUN Creatinine Creat Clearance w eGFR Random Glucose Lactic Acid 0.9 Calcium Total Bilirubin AST ALT Alkaline Phosphatase Total Protein Albumin Stool Occult Blood Negative 1009/08/17 09/08/17 05:35 06:00 10:30 WBC RBC Hgb Hct MCV MCH MCHC RDW Plt Count MPV Neutrophils % Lymphocytes % Monocytes % Eosinophils % Basophils % PTT (Actin FS) 33.1 D Puncture Site Right radial ABG pH 7.44 ABG pCO2 at Pt Temp 40.2 ABG pO2 at Pt Temp 82.0 D ABG HCO3 26.8 H ABG O2 Sat (Measured) 97.1 ABG O2 Content 12.2 L ABG Base Excess 3.0 H Gwyn Test Positive O2 Delivery Device Ventimask Oxygen Flow Rate 50% PEEP 0.0 Sodium 142 Potassium 3.3 L Chloride 107 Carbon Dioxide 28 Anion Gap 7 L BUN 13 D Creatinine 0.8 D Creat Clearance w eGFR > 60 Random Glucose 105 Lactic Acid Calcium 7.8 L Total Bilirubin 0.5 AST 19 D ALT 19 Alkaline Phosphatase 76 D Total Protein 6.1 L Albumin 2.4 L Stool Occult Blood 09/08/17 09/08/17 09/09/17 15:00 16:00 05:40 WBC RBC Hgb Hct MCV MCH MCHC RDW Plt Count MPV Neutrophils % Lymphocytes % Monocytes % Eosinophils % Basophils % PTT (Actin FS) 33.0 Puncture Site ABG pH ABG pCO2 at Pt Temp ABG pO2 at Pt Temp ABG HCO3 ABG O2 Sat (Measured) ABG O2 Content ABG Base Excess Gwyn Test O2 Delivery Device Oxygen Flow Rate PEEP Sodium Cancelled Potassium 3.5 Cancelled Chloride Cancelled Carbon Dioxide Cancelled Anion Gap Cancelled BUN Cancelled Creatinine Cancelled Creat Clearance w eGFR Cancelled Random Glucose Cancelled Lactic Acid Calcium Cancelled Total Bilirubin Cancelled AST Cancelled ALT Cancelled Alkaline Phosphatase Cancelled Total Protein Cancelled Albumin Cancelled Stool Occult Blood Active Medications Generic Name Dose Route Start Last Admin Trade Name Freq PRN Reason Stop Dose Admin Acetaminophen 650 mg 09/08/17 06:35 09/09/17 00:27 Tylenol Suppository - SD 650 mg Q6H PRN Administration FEVER OR PAIN Albuterol/Ipratropium 1 amp 09/05/17 16:22 09/08/17 06:46 Duoneb - NEB 1 amp Q4H PRN Administration SHORTNESS OF BREATH Amlodipine Besylate 5 mg 09/08/17 10:00 09/08/17 09:23 Norvasc - PO Not Given DAILY [facility] Aspirin 81 mg 09/08/17 10:00 09/08/17 09:22 Asa - PO Not Given DAILY [facility] Atorvastatin Calcium 10 mg 09/07/17 22:00 09/08/17 22:46 Lipitor - PO Not Given HS [facility] Donepezil HCl 10 mg 09/08/17 10:00 09/08/17 09:22 Aricept - PO Not Given DAILY [facility] Dorzolamide HCl 1 drop 09/07/17 22:00 09/08/17 22:37 Trusopt 2% OU 1 drop BID [facility] Administration Fluticasone Propionate 2 spray 09/08/17 10:00 09/08/17 09:23 Flonase - NS Not Given DAILY [facility] Heparin Sodium (Porcine) 5,000 unit 09/07/17 22:00 09/08/17 22:37 Heparin - SQ 5,000 unit BID [facility] Administration Ertapenem 1 gm/ Sodium 50 mls @ 50 mls/hr 09/09/17 10:00 Chloride IVPB DAILY [facility] Protocol Latanoprost 1 drop 09/07/17 22:00 09/08/17 22:36 Xalatan 0.005% Eye Drops - OD 1 drop HS [facility] Administration Losartan Potassium 100 mg 09/08/17 10:00 09/08/17 09:22 Cozaar - PO Not Given DAILY [facility] Mirtazapine 15 mg 09/07/17 22:00 09/08/17 22:46 Remeron - PO Not Given HS [facility] Pantoprazole Sodium 40 mg 09/07/17 10:00 09/08/17 09:18 Protonix Iv IVPUSH 40 mg DAILY [facility] Administration Risperidone 0.5 mg 09/07/17 22:00 09/08/17 22:46 Risperdal - PO Not Given HS [facility] ASSESSMENT/PLAN: Patient is an 86 year old female with a significant past medical history of pulmonary HTN, hypertension, HLD, glaucoma, 1st degree AV block, hearing loss alzheimer's disease and anemia. She presents to the ED from her assisted living facility for increased weakness, lethargy and diarrhea. Due to the patient's dementia and hearing impairment, she is not a good historian. Per ED , the patient has been having diarrhea over the past 2 days prior to admission. She began experiencing worsening weakness and appearing more lethargic and nausea and an episode of non-bilious, non-bloody vomiting per ED notess. The facility then called EMS. The patient denies any fevers, chills, chest pain, SOB, or abdominal pain. She was also noted to have redness of bilateral lower extremities, right > left on admission. ID consulted for possible celllulitis of RLE. Vascular study was refused by patient after general service technician attempted same. Imaging: Head CT r/o stroke, negative, awaiting brain MRI study Chest xray 09/06/2017: New right upper lobe, RLL consolidation with bronchograms , increased lung markings noted on left retrocardiac region, suggestion of right pleural effusion, no pneumothorax seen. 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 RLE cellulitis (or both) vs. other source A/P: Chest xray suggests pneumonia, right lower ext, now warm to touch, seems to be improving with the IV antibiotics Blood and urine cultures pending, but no growth to date, repeat blood/urine cultures pending Lactic acid within normal limits, remains febrile tmax 101.4F WBC trended up, then now normalized with repeat labs On Ertapenem IV ID following Neuro: Metabolic Encephalopathy likely secondary to fever, sepsis in the setting of alzheimers dementia A/P: Patient continues to be lethargic today, opens eyes to tactile stimuli ABG reviewed Chest xray suggestive of pneumonia, likely aspiration pneumonia Head CT negative Neuro following, as per neuro, seizure not likely Brain MRI as above Cardiology: Pulmonary Hypertension/Hypertension A/P: Monitor for fluid overload 1st degree AV block, chronic 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, afib?, ekg to confirm Elevated Troponins A/P: 0.05>0.21>0.67 >0.49 Heparin drip stopped, now on SC heparin Cardiology following Pulmonary: Aspiration pneumonia, shortness of breath/New right upper lobe, RLL consolidation, acute A/P: Now on a venti mask On Ertapenem Pulm consulted and following Right lower ext rule out DVT, ruled out A/P: VQ scan as per Pulmonary GI: Dehydration secondary to diarrhea episodes/non bilious vomiting/nausea, now resolved A/P: Patient reported to been having diarrhea over past 2 days prior to admission, now has not had any Stool studies, cdiff ordered, ova and parasites Monitor labs, replete electrolytes Protonix daily Consider GI consult if symptoms persist F.E.N. Fluids: NPO Electrolytes: monitor Nutrition: NPO Prophylaxis: DVT: Heparin sc GI: Protonix Disposition. Patient was initially OBS for dehydration, but converted to inpatient for an admitting diagnosis of sepsis. Full code. Visit type - Emergency Visit Emergency Visit: Yes ED Registration Date: 09/05/17 Care time: The patient presented to the Emergency Department on the above date and was hospitalized for further evaluation of their emergent condition. - New Patient This patient is new to me today: No - Critical Care Critical Care patient: No - Discharge Referral Referred to [facility] Med P.C.: No
[2017-09-09 07:44] LABS: ALBUMIN 2.5 g/dl (3.4-5.0); SGOT/AST 29 U/L (15-37)
[2017-09-09 07:47] LABS: ALK PHOS 98 U/L (45-117); ANION GAP 8 (8-16); BILIRUBIN,TOTAL 0.5 mg/dL (0.2-1.0); CALCIUM 8.4 mg/dL (8.5-10.1); CO2 29 mmol/L (21-32); CREATININE 0.8 mg/dL (0.55-1.02); GLUCOSE,RANDOM 89 mg/dL (74-106); SGPT/ALT 22 U/L (12-78); TOT PROT 6.4 g/dl (6.4-8.2)
[2017-09-09] MEDS ORDERED: FUROSEMIDE 40 MG/4 ML INJECTABLE VIAL IVPUSH ONE (09:00)
[2017-09-09] MEDS: ASPIRIN 81 MG CHEWABLE TABLETS PO SCH (09:24)
[2017-09-09] MEDS: HEPARIN NA (PORCINE) 5,000 UNITS/ML 1ML VIAL SQ SCH ×2 (09:24→23:21)
[2017-09-09] MEDS: DONEPEZIL HCL 10 MG TABLET (FP) PO SCH (09:24)
[2017-09-09] MEDS: LOSARTAN POTASSIUM 50 MG TABLET (FP) PO SCH (09:25)
[2017-09-09] MEDS: DORZOLAMIDE 2% HCL OPHTHALMIC SOLUTION 10 ML BOTTLE OU SCH ×2 (09:26→23:21)
[2017-09-09] MEDS: amLODIPine BESYLATE 5 MG TABLET (FP) PO SCH (09:26)
[2017-09-09 09:40] LABS: NUCLEATED RED BLOOD CELL 1 % (0-0); PLATELET ESTIMATE ADEQUATE (NORMAL); TOTAL CELLS COUNTED 100
--- NOTE | 2017-09-09 09:41 | EKG ---
Test Reason : Blood Pressure : / mmHG Vent. Rate : 073 BPM Atrial Rate : 073 BPM P-R Int : 210 ms QRS Dur : 122 ms QT Int : 400 ms P-R-T Axes : 078 -31 -51 degrees QTc Int : 440 ms SINUS RHYTHM WITH 1ST DEGREE A-V BLOCK WITH PREMATURE ATRIAL COMPLEXES LEFT AXIS DEVIATION RIGHT BUNDLE BRANCH BLOCK LEFT VENTRICULAR HYPERTROPHY WITH REPOLARIZATION ABNORMALITY ABNORMAL ECG WHEN COMPARED WITH ECG OF 05-SEP-2017 22:21, PREMATURE ATRIAL COMPLEXES ARE NOW PRESENT QT HAS SHORTENED Confirmed by MALACHI WOODS MD ([id number]) on 09/09/2017 9:41:01 AM Referred By: JUAN LI Confirmed By:MALACHI WOODS MD
[2017-09-09] MEDS ORDERED: ERTAPENEM SODIUM 1 GM in SODIUM CHLORIDE 50 ML IVPB SCH (10:00)
--- NOTE | 2017-09-09 10:15 | PN ---
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, Physician History of Present Illness: Low grade fever earlier in AM. Arousable on 40% VM, EEG shows diffuse encephelopathy vascular, degenerative vs toxic-metabolic. - Current Medication List Current Medications: Active Medications Acetaminophen (Tylenol Suppository -) 650 mg NH Q6H PRN PRN Reason: FEVER OR PAIN Last Admin: 09/09/17 00:27 Dose: 650 mg Albuterol/Ipratropium (Duoneb -) 1 amp NEB Q4H PRN PRN Reason: SHORTNESS OF BREATH Last Admin: 09/08/17 06:46 Dose: 1 amp Amlodipine Besylate (Norvasc -) 5 mg PO DAILY [facility] Last Admin: 09/09/17 09:26 Dose: Not Given Aspirin (Asa -) 81 mg PO DAILY [facility] Last Admin: 09/09/17 09:24 Dose: Not Given Atorvastatin Calcium (Lipitor -) 10 mg PO HS [facility] Last Admin: 09/08/17 22:46 Dose: Not Given Donepezil HCl (Aricept -) 10 mg PO DAILY [facility] Last Admin: 09/09/17 09:24 Dose: Not Given Dorzolamide HCl (Trusopt 2%) 1 drop OU BID [facility] Last Admin: 09/09/17 09:26 Dose: 1 drop Fluticasone Propionate (Flonase -) 2 spray NS DAILY [facility] Last Admin: 09/08/17 09:23 Dose: Not Given Heparin Sodium (Porcine) (Heparin -) 5,000 unit SQ BID [facility] Last Admin: 09/09/17 09:24 Dose: 5,000 unit Ertapenem 1 gm/ Sodium (Chloride) 50 mls @ 50 mls/hr IVPB DAILY [facility] PRN Reason: Protocol Last Admin: 09/09/17 09:23 Dose: 50 mls/hr Latanoprost (Xalatan 0.005% Eye Drops -) 1 drop OD HS [facility] Last Admin: 09/08/17 22:36 Dose: 1 drop Losartan Potassium (Cozaar -) 100 mg PO DAILY [facility] Last Admin: 09/09/17 09:25 Dose: Not Given Mirtazapine (Remeron -) 15 mg PO HS [facility] Last Admin: 09/08/17 22:46 Dose: Not Given Pantoprazole Sodium (Protonix Iv) 40 mg IVPB DAILY [facility] Risperidone (Risperdal -) 0.5 mg PO HS [facility] Last Admin: 09/08/17 22:46 Dose: Not Given - Objective Vital Signs: Vital Signs Temperature 98.6 F 09/09/17 06:00 Pulse Rate 83 09/09/17 10:03 Respiratory Rate 20 09/09/17 06:00 Blood Pressure 135/71 09/09/17 06:00 O2 Sat by Pulse Oximetry (%) 97 09/09/17 10:03 Constitutional: Yes: No Distress, Calm Neck: Yes: Supple Cardiovascular: Yes: Regular Rate and Rhythm, Murmur (2/6 SM with ectopic beats) Respiratory: Yes: Regular, Diminished, On Venti-Mask Gastrointestinal: Yes: Soft, Hypoactive Bowel Sounds Edema: No Labs: CBC, BMP 09/09/17 05:40 09/09/17 05:40 INR, PTT INR 1.08 (0.82-1.09) 09/04/17 14:40 Problem List - Problems (1) Dehydration Code(s): E86.0 - DEHYDRATION (2) Demand ischemia Code(s): I24.8 - OTHER FORMS OF ACUTE ISCHEMIC HEART DISEASE (3) Dementia in Alzheimer's disease Code(s): G30.9 - ALZHEIMER'S DISEASE, UNSPECIFIED F02.80 - DEMENTIA IN OTH DISEASES CLASSD ELSWHR W/O BEHAVRL DISTURB (4) Hypertensive cardiovascular disease Code(s): I11.9 - HYPERTENSIVE HEART DISEASE WITHOUT HEART FAILURE Qualifiers: Heart failure presence: without heart failure Qualified Code(s): I11.9 - Hypertensive heart disease without heart failure; I11.9 - Hypertensive heart disease without heart failure; I11.9 - Hypertensive heart disease without heart failure (5) Hyperlipidemia Code(s): E78.5 - HYPERLIPIDEMIA, UNSPECIFIED Qualifiers: Hyperlipidemia type: pure hypercholesterolemia Qualified Code(s): E78.00 - Pure hypercholesterolemia, unspecified; E78.00 - Pure hypercholesterolemia, unspecified; E78.00 - Pure hypercholesterolemia, unspecified; E78.0 - Pure hypercholesterolemia (6) Diastolic dysfunction without heart failure Code(s): I51.9 - HEART DISEASE, UNSPECIFIED (7) Fever Code(s): R50.9 - FEVER, UNSPECIFIED Qualifiers: Fever type: unspecified Qualified Code(s): R50.9 - Fever, unspecified; R50.9 - Fever, unspecified (8) Pneumonia Code(s): J18.9 - PNEUMONIA, UNSPECIFIED ORGANISM Qualifiers: Pneumonia type: due to unspecified organism Laterality: right Lung location: lower lobe of lung Qualified Code(s): J18.1 - Lobar pneumonia, unspecified organism; J18.1 - Lobar pneumonia, unspecified organism; J18.1 - Lobar pneumonia, unspecified organism (9) Severe tricuspid regurgitation Code(s): I07.1 - RHEUMATIC TRICUSPID INSUFFICIENCY Assessment/Plan 09/07/2017 Echo: Normal LV size and fxn, mod CHUCK, severe TR 1. Fever, right aspiration PNA 2. Demand ischemic injury 3. Hypertension 4. Pulmonary hypertension 5. Toxic-metabolic encephelopthy with underlying dementia of Alzheimers Type P: 1. Continue Norvasc 5 qd, ASA 81 qd, losartan 100 qd, Lipitor 10 qhs, hold Lasix 20 qd for now, replete K 2. Empiric abx course pending C&S, BD, O2 as needed 3. DVT and GI prophylaxis 4. Consider palliative care evaluation for GOC due to overall poor condition
[2017-09-09] MEDS: PANTOPRAZOLE SODIUM 40 MG VIAL IVPUSH SCH (10:42)
--- NOTE | 2017-09-09 11:05 | PN ---
Physical Exam: SUBJECTIVE: Patient seen and examined this AM. Still on venti-mask, responsive to questions, eyes open. OBJECTIVE: Vital Signs Period Temp Pulse Resp BP Sys/Matute Pulse Ox Last 24 Hr 98.6 F-100.4 F 80-107 17-24 135-155/50-85 95-97 GEN: Lying in bed with ventimask, opens eyes, responds to questions HEENT: PERRLA CV: S1, S2, 3/6 systolic murmur LUNG: R sided crackles/rhonchi ABD: Soft, NT, ND, normoactive BS MSK: No edema, mild BLLE pink/red rash Active Medications Generic Name Dose Route Start Last Admin Trade Name Freq PRN Reason Stop Dose Admin Acetaminophen 650 mg 09/08/17 06:35 09/09/17 00:27 Tylenol Suppository - MD 650 mg Q6H PRN Administration FEVER OR PAIN Albuterol/Ipratropium 1 amp 09/05/17 16:22 09/08/17 06:46 Duoneb - NEB 1 amp Q4H PRN Administration SHORTNESS OF BREATH Amlodipine Besylate 5 mg 09/08/17 10:00 09/09/17 09:26 Norvasc - PO Not Given DAILY [facility] Aspirin 81 mg 09/08/17 10:00 09/09/17 09:24 Asa - PO Not Given DAILY [facility] Atorvastatin Calcium 10 mg 09/07/17 22:00 09/08/17 22:46 Lipitor - PO Not Given HS [facility] Donepezil HCl 10 mg 09/08/17 10:00 09/09/17 09:24 Aricept - PO Not Given DAILY [facility] Dorzolamide HCl 1 drop 09/07/17 22:00 09/09/17 09:26 Trusopt 2% OU 1 drop BID [facility] Administration Fluticasone Propionate 2 spray 09/08/17 10:00 09/08/17 09:23 Flonase - NS Not Given DAILY [facility] Heparin Sodium (Porcine) 5,000 unit 09/07/17 22:00 09/09/17 09:24 Heparin - SQ 5,000 unit BID [facility] Administration Ertapenem 1 gm/ Sodium 50 mls @ 50 mls/hr 09/09/17 10:00 09/09/17 09:23 Chloride IVPB 50 mls/hr DAILY [facility] Administration Protocol Latanoprost 1 drop 09/07/17 22:00 09/08/17 22:36 Xalatan 0.005% Eye Drops - OD 1 drop HS [facility] Administration Losartan Potassium 100 mg 09/08/17 10:00 09/09/17 09:25 Cozaar - PO Not Given DAILY [facility] Mirtazapine 15 mg 09/07/17 22:00 09/08/17 22:46 Remeron - PO Not Given HS [facility] Pantoprazole Sodium 40 mg 09/09/17 10:11 Protonix Iv IVPUSH DAILY [facility] Risperidone 0.5 mg 09/07/17 22:00 09/08/17 22:46 Risperdal - PO Not Given HS [facility] CBC, BMP 09/09/17 05:40 09/09/17 05:40 Microbiology 09/08/17 08:49 Urine For Antigen Detection Legionella Antigen - Final 09/08/17 08:49 Urine For Antigen Detection Streptococcus pneumoniae Antigen (M - Final 09/08/17 08:49 Urine - Urine - Catheterized Urine Culture - Final NO GROWTH OBTAINED 09/06/17 05:30 Nasopharyngeal Swab Influenza Types A,B Antigen (SUSANNAH) - Final 09/06/17 05:30 Nasopharyngeal Swab - Final 09/04/17 14:40 Urine - Urine Clean Catch Urine Culture - Final NO GROWTH OBTAINED 09/08/17 05:35 Blood - Peripheral Venous Blood Culture - Preliminary NO GROWTH OBTAINED AFTER 24 HOURS, INCUBATION TO CONTINUE FOR 4 DAYS. 09/08/17 05:35 Blood - Peripheral Venous Blood Culture - Preliminary NO GROWTH OBTAINED AFTER 24 HOURS, INCUBATION TO CONTINUE FOR 4 DAYS. 09/04/17 14:40 Blood - Peripheral Venous Blood Culture - Preliminary NO GROWTH OBTAINED AFTER 96 HOURS, INCUBATION TO CONTINUE FOR 1 DAYS. 09/04/17 14:40 Blood - Peripheral Venous Blood Culture - Preliminary NO GROWTH OBTAINED AFTER 72 HOURS, INCUBATION TO CONTINUE FOR 2 DAYS. ASSESSMENT/PLAN: Pt is an 86yo F with PMHx of Pulmonary HTN, HLD, 1st degree AVB, hearing loss, Alzheimers, who presented from [facility] facility for increasing weakness, lethargy, diarrhea. # Likely Aspiration PNA - RUL and RLL infiltrates - Continues to spike fevers! (?continued aspiration) - Will switch Ertapenem --> Meropenem for pseudomonal coverage - F/u BCx - Continue supportive O2 Discussed w/ Dr Lewis, will follow. Tawny Timmons MD - PGY1 Infectious Disease Visit type - Emergency Visit Emergency Visit: No - New Patient This patient is new to me today: No - Critical Care Critical Care patient: No - Discharge Referral Referred to [facility] Med P.C.: No
--- NOTE | 2017-09-09 11:50 | PN ---
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 (short form) - Note 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: Lethargic on 50% VM. Non-verbal. Intake & Output 09/06/17 09/07/17 09/08/17 09/09/17 23:59 23:59 23:59 23:59 Intake Total 370 525 425 Output Total 1915 Balance 370 525 -1490 Last Vital Signs Temp Pulse Resp BP Pulse Ox 98.6 F 83 20 135/71 97 09/09/17 06:00 09/09/17 10:03 09/09/17 06:00 09/09/17 06:00 09/09/17 10:03 Active Medications Acetaminophen (Tylenol Suppository -) 650 mg NE Q6H PRN PRN Reason: FEVER OR PAIN Last Admin: 09/09/17 00:27 Dose: 650 mg Albuterol/Ipratropium (Duoneb -) 1 amp NEB Q4H PRN PRN Reason: SHORTNESS OF BREATH Last Admin: 09/08/17 06:46 Dose: 1 amp Amlodipine Besylate (Norvasc -) 5 mg PO DAILY [facility] Last Admin: 09/09/17 09:26 Dose: Not Given Aspirin (Asa -) 81 mg PO DAILY [facility] Last Admin: 09/09/17 09:24 Dose: Not Given Atorvastatin Calcium (Lipitor -) 10 mg PO HS [facility] Last Admin: 09/08/17 22:46 Dose: Not Given Donepezil HCl (Aricept -) 10 mg PO DAILY [facility] Last Admin: 09/09/17 09:24 Dose: Not Given Dorzolamide HCl (Trusopt 2%) 1 drop OU BID [facility] Last Admin: 09/09/17 09:26 Dose: 1 drop Fluticasone Propionate (Flonase -) 2 spray NS DAILY [facility] Last Admin: 09/08/17 09:23 Dose: Not Given Heparin Sodium (Porcine) (Heparin -) 5,000 unit SQ BID [facility] Last Admin: 09/09/17 09:24 Dose: 5,000 unit Ertapenem 1 gm/ Sodium (Chloride) 50 mls @ 50 mls/hr IVPB DAILY [facility] PRN Reason: Protocol Last Admin: 09/09/17 09:23 Dose: 50 mls/hr Latanoprost (Xalatan 0.005% Eye Drops -) 1 drop OD HS [facility] Last Admin: 10/19/17 22:36 Dose: 1 drop Losartan Potassium (Cozaar -) 100 mg PO DAILY [facility] Last Admin: 09/09/17 09:25 Dose: Not Given Mirtazapine (Remeron -) 15 mg PO HS [facility] Last Admin: 09/08/17 22:46 Dose: Not Given Pantoprazole Sodium (Protonix Iv) 40 mg IVPUSH DAILY [facility] Risperidone (Risperdal -) 0.5 mg PO HS [facility] Last Admin: 09/08/17 22:46 Dose: Not Given Gen: lethargic, breathing nonlabored Heart: RRR Lung: decreased breath sounds at the bases Abd: soft, nontender Ext: no edema Laboratory Results - last 24 hr 09/08/17 09/08/17 09/09/17 15:00 16:00 05:40 WBC RBC Hgb Hct MCV MCH MCHC RDW Plt Count MPV Total Counted Neutrophils % Neutrophils % (Manual) Lymphocytes % Lymphocytes % (Manual) Monocytes % (Manual) Eosinophils % (Manual) Nucleated RBC % Platelet Estimate PTT (Actin FS) 33.0 Sodium Cancelled Potassium 3.5 Cancelled Chloride Cancelled Carbon Dioxide Cancelled Anion Gap Cancelled BUN Cancelled Creatinine Cancelled Creat Clearance w eGFR Cancelled Random Glucose Cancelled Calcium Cancelled Total Bilirubin Cancelled AST Cancelled ALT Cancelled Alkaline Phosphatase Cancelled Total Protein Cancelled Albumin Cancelled 09/09/17 09/09/17 05:40 05:40 WBC 9.0 RBC 4.03 Hgb 11.8 D Hct 35.1 MCV 87.1 MCH 29.3 MCHC 33.6 RDW 14.0 Plt Count 384 D MPV 7.9 Total Counted 100 Neutrophils % No Result Required. Neutrophils % (Manual) 70 Lymphocytes % No Result Required. Lymphocytes % (Manual) 15 D Monocytes % (Manual) 8 Eosinophils % (Manual) 7 H Nucleated RBC % 1 H Platelet Estimate Adequate PTT (Actin FS) Sodium 143 Potassium 3.6 Chloride 106 Carbon Dioxide 29 Anion Gap 8 BUN 14 Creatinine 0.8 Creat Clearance w eGFR > 60 Random Glucose 89 Calcium 8.4 L Total Bilirubin 0.5 AST 29 D ALT 22 Alkaline Phosphatase 98 D Total Protein 6.4 Albumin 2.5 L A/P Pneumonia +Troponins likely demand ischemia HTN Pulmonary HTN Parkinsons Dementia - continue antibiotics - aspiration precautions - O2 to keep SpO2 >90% - inhaled bronchodilators as needed - replete lytes - DVT prophylaxis - Consider P. care evaluation for GOC due to overall poor condition Dr Moore
--- NOTE | 2017-09-09 12:24 | PN ---
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, BUSINESS SYSTEMS DEVELOPER - Note 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: Selected Entries 09/08/17 09/08/17 09/08/17 01:51 06:00 09:00 Breakfast Supper Temperature 99.1 F 101.4 F H 99.8 F H 09/08/17 09/08/17 09/08/17 11:12 14:06 18:00 Breakfast NPO Supper NPO Temperature 99.9 F H 100.3 F H 09/08/17 09/09/17 09/09/17 21:00 02:00 06:00 Breakfast Supper Temperature 100.2 F H 100.4 F H 98.6 F Laboratory Tests 09/07/17 09/08/17 09/09/17 05:35 05:35 05:40 WBC 10.1 H 9.6 9.0 Pt's eyes are open, with initially no verbalization. With cues to "Say hello" she initiated speech. She thinks she is "home" with dx of dementia.Flat affect. Establishes eye contact. Impaired speech initiation, likely secondary to dementia,with possible worsening with recent infection. Speech production is normal. Respiration is comfortable. Pt is a full code. Palliative care consulted. Case reviewed with PNP. Consider Dys puree/nectar thick liquid trial, with magic cup/ensure compact. HOB to 90 degrees and maintain upright after meals. No PO intake within 2-3 hrs of bedtime. Monitor pulmonary status, fever,WBC.
[2017-09-09] MEDS: FLUTICASONE PROP 0.05% 16 GM NASAL SPRAY NS SCH (13:01)
--- NOTE | 2017-09-09 13:21 | PN ---
Teaching Attending Note Name of Resident: Tawny Timmons ATTENDING PHYSICIAN STATEMENT I saw and evaluated the patient. I reviewed the resident's note and discussed the case with the resident. I agree with the resident's findings and plan as documented. SUBJECTIVE: opens eyes conversant OBJECTIVE: Vital Signs Period Temp Pulse Resp BP Sys/Matute Pulse Ox Last 24 Hr 98.6 F-100.4 F 80-107 17-24 135-155/50-85 95-97 cor-rrr lungs cracklesleft lung, right lung clear abd soft,nt ext no edema CBC, BMP 09/09/17 05:40 09/09/17 05:40 cxray reviewed ASSESSMENT AND PLAN: continued fever ?recurrent aspiration broaden coverage to include pseudomonas will switch to meropenem
[2017-09-09] MEDS ORDERED: PT OWN MED DRAWER 7, Y5N ONE ×3 (18:08→23:55)
[2017-09-09] MEDS: MEROPENEM 1 GM in DEXTROSE 5%-WATER - 100 ML IVPB SCH (18:13)
[2017-09-09] MEDS: LATANOPROST 0.005% OPHTH SOLN 2.5ML BOTTLE OD SCH (23:21)
[2017-09-09] MEDS: ATORVASTATIN CA 10 MG TABLET (FP) PO SCH (23:21)
[2017-09-09] MEDS: MIRTAZAPINE 15 MG TABLET (FP) PO SCH (23:21)
[2017-09-09] MEDS: risperiDONE 0.5 MG TABLET (FP) PO SCH (23:21)
[2017-09-10] MEDS: MEROPENEM 1 GM in DEXTROSE 5%-WATER - 100 ML IVPB SCH ×3 (03:00→17:23)
[2017-09-10] MEDS ORDERED: PT OWN MED DRAWER 7, Y5N ONE ×5 (04:53→20:51)
[2017-09-10 07:37] LABS: MCH 30.3 pg (25.7-33.7); MCHC 34.1 g/dl (32.0-36.0); MEAN CELL VOLUME 88.8 fl (80-96); MEAN PLT VOLUME 7.8 fl (7.5-11.1); PLATELET COUNT 435 K/MM3 (134-434); RDW 13.9 % (11.6-15.6); WHITE BLOOD COUNT 9.5 K/mm3 (4.0-10.0)
[2017-09-10 07:47] LABS: ALBUMIN 2.4 g/dl (3.4-5.0); ANION GAP 7 (8-16); BILIRUBIN,TOTAL 0.4 mg/dL (0.2-1.0); CALCIUM 8.5 mg/dL (8.5-10.1); CO2 32 mmol/L (21-32); CREATININE 0.7 mg/dL (0.55-1.02); GLUCOSE,RANDOM 117 mg/dL (74-106); SGOT/AST 23 U/L (15-37); SGPT/ALT 23 U/L (12-78); TOT PROT 6.3 g/dl (6.4-8.2)
[2017-09-10 07:48] LABS: ALK PHOS 99 U/L (45-117)
[2017-09-10] MEDS ORDERED: POTASSIUM CHLORIDE ORAL LIQUID 20 MEQ/15 ML PO ONE (08:30)
[2017-09-10] MEDS: DONEPEZIL HCL 10 MG TABLET (FP) PO SCH (09:13)
[2017-09-10] MEDS: LOSARTAN POTASSIUM 50 MG TABLET (FP) PO SCH (09:13)
[2017-09-10] MEDS: amLODIPine BESYLATE 5 MG TABLET (FP) PO SCH (09:13)
[2017-09-10] MEDS: ASPIRIN 81 MG CHEWABLE TABLETS PO SCH (09:13)
[2017-09-10] MEDS: PANTOPRAZOLE SODIUM 40 MG VIAL IVPUSH SCH (09:14)
[2017-09-10] MEDS: HEPARIN NA (PORCINE) 5,000 UNITS/ML 1ML VIAL SQ SCH ×2 (09:14→21:07)
[2017-09-10] MEDS: DORZOLAMIDE 2% HCL OPHTHALMIC SOLUTION 10 ML BOTTLE OU SCH ×2 (09:14→21:07)
[2017-09-10] MEDS: FLUTICASONE PROP 0.05% 16 GM NASAL SPRAY NS SCH (09:14)
[2017-09-10 10:13] LABS: PLATELET ESTIMATE ADEQUATE (NORMAL); TOTAL CELLS COUNTED 100
[2017-09-10 10:15] LABS: METAMYELOCYTE 1 % (0-2)
--- NOTE | 2017-09-10 10:27 | PN ---
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, Physician Chief Complaint: ID Now on Meropenem Appears comfortable - Current Medication List Current Medications: Active Medications Acetaminophen (Tylenol Suppository -) 650 mg [place] Q6H PRN PRN Reason: FEVER OR PAIN Last Admin: 09/09/17 00:27 Dose: 650 mg Albuterol/Ipratropium (Duoneb -) 1 amp NEB Q4H PRN PRN Reason: SHORTNESS OF BREATH Last Admin: 09/08/17 06:46 Dose: 1 amp Amlodipine Besylate (Norvasc -) 5 mg PO DAILY [facility] Last Admin: 09/10/17 09:13 Dose: 5 mg Aspirin (Asa -) 81 mg PO DAILY [facility] Last Admin: 09/10/17 09:13 Dose: 81 mg Atorvastatin Calcium (Lipitor -) 10 mg PO HS [facility] Last Admin: 09/09/17 23:21 Dose: 10 mg Donepezil HCl (Aricept -) 10 mg PO DAILY [facility] Last Admin: 09/10/17 09:13 Dose: 10 mg Dorzolamide HCl (Trusopt 2%) 1 drop OU BID [facility] Last Admin: 09/10/17 09:14 Dose: 1 drop Fluticasone Propionate (Flonase -) 2 spray NS DAILY [facility] Last Admin: 09/10/17 09:14 Dose: 2 sprays Heparin Sodium (Porcine) (Heparin -) 5,000 unit SQ BID [facility] Last Admin: 09/10/17 09:14 Dose: 5,000 unit Meropenem 1 gm/ Dextrose 100 mls @ 100 mls/hr IVPB Q8H-IV [facility] PRN Reason: Protocol Last Admin: 09/10/17 09:15 Dose: 100 mls/hr Latanoprost (Xalatan 0.005% Eye Drops -) 1 drop OD HS [facility] Last Admin: 09/09/17 23:21 Dose: 1 drop Losartan Potassium (Cozaar -) 100 mg PO DAILY [facility] Last Admin: 09/10/17 09:13 Dose: 100 mg Mirtazapine (Remeron -) 15 mg PO HS [facility] Last Admin: 09/09/17 23:21 Dose: 15 mg Pantoprazole Sodium (Protonix Iv) 40 mg IVPUSH DAILY [facility] Last Admin: 09/10/17 09:14 Dose: 40 mg Risperidone (Risperdal -) 0.5 mg PO HS [facility] Last Admin: 09/09/17 23:21 Dose: 0.5 mg - Objective Vital Signs: Vital Signs Temperature 98.7 F 09/10/17 06:32 Pulse Rate 83 09/10/17 06:32 Respiratory Rate 20 09/10/17 06:32 Blood Pressure 157/62 09/10/17 06:32 O2 Sat by Pulse Oximetry (%) 97 09/09/17 22:00 Constitutional: Yes: No Distress HENT: Yes: WNL, Atraumatic Neck: Yes: WNL, Supple Cardiovascular: Yes: Regular Rate and Rhythm, S1, S2 Respiratory: Yes: WNL, Regular, CTA Bilaterally Gastrointestinal: Yes: WNL, Normal Bowel Sounds, Soft. No: Tenderness, Tenderness, Epigastrium Extremities: No: Cold, Cool, Cyanosis Edema: No Labs: CBC, BMP 09/10/17 06:30 09/10/17 06:30 INR, PTT INR 1.08 (0.82-1.09) 09/04/17 14:40 Problem List - Problems (1) Dehydration Code(s): E86.0 - DEHYDRATION (2) Gastroenteritis Code(s): K52.9 - NONINFECTIVE GASTROENTERITIS AND COLITIS, UNSPECIFIED (3) Cellulitis Code(s): L03.90 - CELLULITIS, UNSPECIFIED Assessment/Plan Microbiology 09/04/17 14:40 Urine - Urine Clean Catch Urine Culture - Final NO GROWTH OBTAINED 09/04/17 14:40 Blood - Peripheral Venous Blood Culture - Final NO GROWTH AFTER 5 DAYS INCUBATION 09/04/17 14:40 Blood - Peripheral Venous Blood Culture - Final NO GROWTH AFTER 5 DAYS INCUBATION Laboratory Tests 09/10/17 09/10/17 06:30 06:30 WBC 9.5 Hgb 12.0 Plt Count 435 H Creatinine 0.7 Assessment Aspiration PNA on empiric therapy Plan Continue same antibiotic and discussed MERLY Vidal
--- NOTE | 2017-09-10 10:59 | PN ---
Physical Exam: SUBJECTIVE: Patient seen and examined. Eyes open, speaking a few words. OBJECTIVE: Mental status much improved, now on nasal cannula and maintaining her oxygen saturations above 90% WBC now stable, remains afebrile x 24 hours, more alert K. 3.3 repleted, pt is tolerating pureed diet/honey thickened liquids Vital Signs Period Temp Pulse Resp BP Sys/Matute Pulse Ox Last 24 Hr 98.1 F-99.6 F 83-105 20-22 141-159/62-88 97-97 GENERAL: Remains lethargic, poor historian 2/2 to alzheimers dementia, but now responsive to voice, answers questions HEAD: Normal with no signs of trauma, CT head negative EARS, NOSE, THROAT: Ears normal, nares patent, oropharynx clear without exudates. Moist mucous membranes. NECK: Normal range of motion, supple without lymphadenopathy, JVD, or masses. LUNGS: scattered rhonchi thorughout lung penny, congestion ABDOMEN: Soft, nontender, mildly distended, +bowel sounds, no guarding, no rebound, no masses. No hepatomegaly or splenomegaly. MUSCULOSKELETAL: Normal range of motion at all joints. No bony deformities or tenderness. No CVA tenderness. UPPER EXTREMITIES: 2+ pulses, warm, well-perfused. No cyanosis. No clubbing. No peripheral edema. LOWER EXTREMITIES: +1 edema, RLE warm to touch now with mild redness right lower ext, +cellulitis/doppler studies negative NEUROLOGICAL: lethargic but now more alert, hx of alzhemiers dementia Laboratory Results - last 24 hr 09/09/17 09/10/17 09/10/17 10:30 06:30 06:30 WBC 9.5 RBC 3.96 Hgb 12.0 Hct 35.2 MCV 88.8 MCH 30.3 MCHC 34.1 RDW 13.9 Plt Count 435 H MPV 7.8 Total Counted 100 Neutrophils % No Result Required. Neutrophils % (Manual) 77 Band Neuts % (Manual) 1 D Lymphocytes % No Result Required. Lymphocytes % (Manual) 14 Monocytes % (Manual) 5 Eosinophils % (Manual) 2 Platelet Estimate Adequate PTT (Actin FS) 31.4 Sodium Potassium Chloride Carbon Dioxide Anion Gap BUN Creatinine Creat Clearance w eGFR Random Glucose Calcium Total Bilirubin AST ALT Alkaline Phosphatase Ammonia < 10.0 L Total Protein Albumin 09/10/17 06:30 WBC RBC Hgb Hct MCV MCH MCHC RDW Plt Count MPV Total Counted Neutrophils % Neutrophils % (Manual) Band Neuts % (Manual) Lymphocytes % Lymphocytes % (Manual) Monocytes % (Manual) Eosinophils % (Manual) Platelet Estimate PTT (Actin FS) Sodium 143 Potassium 3.3 L Chloride 104 Carbon Dioxide 32 Anion Gap 7 L BUN 15 Creatinine 0.7 Creat Clearance w eGFR > 60 Random Glucose 117 H D Calcium 8.5 Total Bilirubin 0.4 AST 23 D ALT 23 Alkaline Phosphatase 99 Ammonia Total Protein 6.3 L Albumin 2.4 L Active Medications Generic Name Dose Route Start Last Admin Trade Name Freq PRN Reason Stop Dose Admin Acetaminophen 650 mg 09/08/17 06:35 09/09/17 00:27 Tylenol Suppository - [place] 650 mg Q6H PRN Administration FEVER OR PAIN Albuterol/Ipratropium 1 amp 09/05/17 16:22 09/08/17 06:46 Duoneb - NEB 1 amp Q4H PRN Administration SHORTNESS OF BREATH Amlodipine Besylate 5 mg 09/08/17 10:00 09/10/17 09:13 Norvasc - PO 5 mg DAILY [facility] Administration Aspirin 81 mg 09/08/17 10:00 09/10/17 09:13 Asa - PO 81 mg DAILY [facility] Administration Atorvastatin Calcium 10 mg 09/07/17 22:00 09/09/17 23:21 Lipitor - PO 10 mg HS [facility] Administration Donepezil HCl 10 mg 09/08/17 10:00 09/10/17 09:13 Aricept - PO 10 mg DAILY [facility] Administration Dorzolamide HCl 1 drop 09/07/17 22:00 09/10/17 09:14 Trusopt 2% OU 1 drop BID [facility] Administration Fluticasone Propionate 2 spray 09/08/17 10:00 09/10/17 09:14 Flonase - NS 2 sprays DAILY [facility] Administration Heparin Sodium (Porcine) 5,000 unit 09/07/17 22:00 09/10/17 09:14 Heparin - SQ 5,000 unit BID [facility] Administration Meropenem 1 gm/ Dextrose 100 mls @ 100 mls/hr 09/09/17 18:00 09/10/17 09:15 IVPB 100 mls/hr Q8H-IV [facility] Administration Protocol Latanoprost 1 drop 09/07/17 22:00 09/09/17 23:21 Xalatan 0.005% Eye Drops - OD 1 drop HS [facility] Administration Losartan Potassium 100 mg 09/08/17 10:00 09/10/17 09:13 Cozaar - PO 100 mg DAILY [facility] Administration Mirtazapine 15 mg 09/07/17 22:00 09/09/17 23:21 Remeron - PO 15 mg HS [facility] Administration Pantoprazole Sodium 40 mg 09/09/17 10:11 09/10/17 09:14 Protonix Iv IVPUSH 40 mg DAILY [facility] Administration Risperidone 0.5 mg 09/07/17 22:00 09/09/17 23:21 Risperdal - PO 0.5 mg HS [facility] Administration ASSESSMENT/PLAN: Patient is an 86 year old female with a significant past medical history of pulmonary HTN, hypertension, HLD, glaucoma, 1st degree AV block, hearing loss alzheimer's disease and anemia. She presents to the ED from her assisted living facility for increased weakness, lethargy and diarrhea. Due to the patient's dementia and hearing impairment, she is not a good historian. Per ED , the patient has been having diarrhea over the past 2 days prior to admission. She began experiencing worsening weakness and appearing more lethargic and nausea and an episode of non-bilious, non-bloody vomiting per ED notess. The facility then called EMS. The patient denies any fevers, chills, chest pain, SOB, or abdominal pain. She was also noted to have redness of bilateral lower extremities, right > left on admission. ID consulted for possible cellulitis of RLE. During 2nd day of hospitalization, patient's admission status was changed from OBS to inpatient secondary to sepsis. Imaging: Head CT r/o stroke, negative, awaiting brain MRI study Chest xray 09/06/2017: New right upper lobe, RLL consolidation with bronchograms , increased lung markings noted on left retrocardiac region, suggestion of right pleural effusion, no pneumothorax seen. Erick MRI: few old small vessel infarcts, seq, likely sequela of HTN, no acute infarction, no evidence of intracerebral hemorrhage EEG: abnormal EEG, diffused enchep. of metabolic deg. or vascular origin. ID: Sepsis, likely secondary to aspiration pnemonia vs. RLE cellulitis (or both) A/P: Chest xray suggests pneumonia, likely aspiration pneumonia On Meropenem 1 gram (10/20 > ), previously on Ceftriaxone Her respiratory status is now improving, now tolerating nasal cannula @ 2 liters Right Lower ext Cellulitis, noted on admission, improving Spoke to pt daughter who noted that her mother's right leg was reddened and painful at the assisted living facility Doppler negative for DVT On Meropenem 1 gram (09/09 > ), previously on Ceftriaxone Lactic acid within normal limits, remains afebrile x 24 hours WBC now normalized, vitals stable ID following Neuro: Metabolic Encephalopathy likely secondary to fever, sepsis in the setting of alzheimers dementia, improving A/P: Patient continues to be lethargic today but more responsive than yesterday She is able to open her eyes and answer questions briefly ABG reviewed Head CT negative, brain MRI and EEG as noted above Neuro following, as per neuro, seizure not likely Cardiology: Pulmonary Hypertension/Hypertension A/P: Monitor for fluid overload, now off IVFs Lasix IV x 1 given yesterday with good effect 1st degree AV block, chronic A/P: On electronic device monitor, AV block noted Elevated Troponins A/P: 0.05>0.21>0.67 >0.49 Heparin drip stopped, now on SC heparin Cardiology following Pulmonary: Aspiration pneumonia, shortness of breath/New right upper lobe, RLL consolidation, acute A/P: Tolerating nasal cannula @ 2 liters, On Meropenem IV Pulm following Right lower ext rule out DVT, ruled out A/P: VQ scan as per Pulmonary GI: Dehydration secondary to diarrhea episodes/non bilious vomiting/nausea, now resolved A/P: Patient reported to been having diarrhea 2 days prior to admission Monitor labs, replete electrolytes Consider GI consult if symptoms persist F.E.N. Fluids: tolerating honey thickened liquids Electrolytes: monitor Nutrition: pureed diet, honey thickened liquids Prophylaxis: DVT: Heparin sc GI: Protonix Disposition. Patient was initially OBS for dehydration, but converted to inpatient for an admitting diagnosis of sepsis. dnr/dni. Palliative care consulted and have discussed goals of care with daughter who is HCP. Visit type - Emergency Visit Emergency Visit: Yes ED Registration Date: 09/05/17 Care time: The patient presented to the Emergency Department on the above date and was hospitalized for further evaluation of their emergent condition. - New Patient This patient is new to me today: No - Critical Care Critical Care patient: No - Discharge Referral Referred to [facility] No
--- NOTE | 2017-09-10 11:05 | PN ---
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 (short form) - Note 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: Chief Complaint: Events noted, notes reviewed, non verbal in no distress History of Present Illness: Seen and examined on telemetry. Events noted, notes reviewed, non verbal in no distress Medications: Current Medications Acetaminophen (Tylenol Suppository -) 650 mg [place] Q6H PRN PRN Reason: FEVER OR PAIN Last Admin: 09/09/17 00:27 Dose: 650 mg Albuterol/Ipratropium (Duoneb -) 1 amp NEB Q4H PRN PRN Reason: SHORTNESS OF BREATH Last Admin: 09/08/17 06:46 Dose: 1 amp Amlodipine Besylate (Norvasc -) 5 mg PO DAILY [facility] Last Admin: 09/10/17 09:13 Dose: 5 mg Aspirin (Asa -) 81 mg PO DAILY [facility] Last Admin: 09/10/17 09:13 Dose: 81 mg Atorvastatin Calcium (Lipitor -) 10 mg PO HS [facility] Last Admin: 09/09/17 23:21 Dose: 10 mg Donepezil HCl (Aricept -) 10 mg PO DAILY [facility] Last Admin: 09/10/17 09:13 Dose: 10 mg Dorzolamide HCl (Trusopt 2%) 1 drop OU BID [facility] Last Admin: 09/10/17 09:14 Dose: 1 drop Fluticasone Propionate (Flonase -) 2 spray NS DAILY [facility] Last Admin: 09/10/17 09:14 Dose: 2 sprays Heparin Sodium (Porcine) (Heparin -) 5,000 unit SQ BID [facility] Last Admin: 09/10/17 09:14 Dose: 5,000 unit Meropenem 1 gm/ Dextrose 100 mls @ 100 mls/hr IVPB Q8H-IV [facility] PRN Reason: Protocol Last Admin: 09/10/17 09:15 Dose: 100 mls/hr Latanoprost (Xalatan 0.005% Eye Drops -) 1 drop OD HS [facility] Last Admin: 09/09/17 23:21 Dose: 1 drop Losartan Potassium (Cozaar -) 100 mg PO DAILY [facility] Last Admin: 09/10/17 09:13 Dose: 100 mg Mirtazapine (Remeron -) 15 mg PO HS [facility] Last Admin: 09/09/17 23:21 Dose: 15 mg Pantoprazole Sodium (Protonix Iv) 40 mg IVPUSH DAILY [facility] Last Admin: 09/10/17 09:14 Dose: 40 mg Potassium Chloride (K-Dur -) 40 meq PO ONCE ONE Stop: 09/10/17 11:02 Risperidone (Risperdal -) 0.5 mg PO HS [facility] Last Admin: 09/09/17 23:21 Dose: 0.5 mg Review of Systems Unable to obtain Vital Signs: Last Vital Signs Temp Pulse Resp BP Pulse Ox 98.7 F 83 20 157/62 97 09/10/17 06:32 09/10/17 06:32 09/10/17 06:32 09/10/17 06:32 09/09/17 22:00 Intake & Output 09/07/17 09/08/17 09/09/17 09/10/17 23:59 23:59 23:59 23:59 Intake Total 525 425 Output Total 1912 2000 Balance 525 -1490 -3170 Constitutional: No Distress, Calm Neck: Supple Negative JVD No Bruit Respiratory: Clear to A&P Bilaterally Cardiovascular: S1 S2 Regular Rate and Rhythm Gastrointestinal: Soft Benign Normal Bowel Sounds Ext: No Edema Labs: CBC, BMP 09/10/17 06:30 09/10/17 06:30 INR, PTT INR 1.08 (0.82-1.09) 09/04/17 14:40 Assessment/Plan ASSESSMENT: 1. Aspiration pneumonia 2. CAD with evidence of demand ischemic injury, angina pectoris 3. Diastolic LV dysfunction with class I NYHA classification LV failure 4. Hypertension 5. Pulmonary hypertension 6. Persistent toxic-metabolic encephelopthy, underlying dementia 7. Hypokalemia PLAN: 1. Add B-Blockers unless it is contraindicated, Lopressor 2. Continue Norvasc 3. Continue Losartan 4. Continue Lipitor 5. Continue ASA 6. Antibiotics as per the primary team 7. Hypokalemia correction Elena Mckeon M.D.
[2017-09-10] MEDS ORDERED: POTASSIUM CHLORIDE TABS 20 MEQ TABLET.ER (FP) PO ONE (11:30)
--- NOTE | 2017-09-10 12:54 | PN ---
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 (short form) - Note 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: PULMONARY VSS Gen: lethargic, breathing nonlabored Heart: RRR Lung: decreased breath sounds at the bases Abd: soft, nontender Ext: no edema LABS/MEDS/NOTES REVIEWED A/P Pneumonia +Troponins likely demand ischemia HTN Pulmonary HTN Parkinsons Dementia - continue antibiotics - aspiration precautions - O2 to keep SpO2 >90% - inhaled bronchodilators as needed - replete lytes - DVT prophylaxis - Consider P. care evaluation for GOC due to overall poor condition Yani BROWN MD
[2017-09-10] MEDS: risperiDONE 0.5 MG TABLET (FP) PO SCH (21:06)
[2017-09-10] MEDS: ATORVASTATIN CA 10 MG TABLET (FP) PO SCH (21:06)
[2017-09-10] MEDS: METOPROLOL TARTRATE 25 MG TABLET (FP) PO SCH (21:06)
[2017-09-10] MEDS: MIRTAZAPINE 15 MG TABLET (FP) PO SCH (21:07)
[2017-09-10] MEDS: LATANOPROST 0.005% OPHTH SOLN 2.5ML BOTTLE OD SCH (21:07)
[2017-09-10] MEDS: ACETAMINOPHEN 650 MG SUPP.RECT PR PRN (21:24)
[2017-09-10] MEDS ORDERED: ALBUTEROL SO4 2.5/IPRATROPIUM 0.5 INH SOL 3 ML VIAL.NEB. NEB ONE (21:50)
[2017-09-11] MEDS ORDERED: PT OWN MED DRAWER 7, Y5N ONE ×6 (02:38→22:03)
[2017-09-11] MEDS: MEROPENEM 1 GM in DEXTROSE 5%-WATER - 100 ML IVPB SCH ×3 (02:43→17:50)
[2017-09-11 08:24] LABS: ALBUMIN 2.2 g/dl (3.4-5.0); ANION GAP 8 (8-16); CALCIUM 8.4 mg/dL (8.5-10.1); CO2 31 mmol/L (21-32); CREATININE 0.8 mg/dL (0.55-1.02); GLUCOSE,RANDOM 102 mg/dL (74-106); MCH 32.7 pg (25.7-33.7); MCHC 36.1 g/dl (32.0-36.0); MEAN CELL VOLUME 90.6 fl (80-96); MEAN PLT VOLUME 7.5 fl (7.5-11.1); PLATELET COUNT 424 K/MM3 (134-434); RDW 14.1 % (11.6-15.6); SGOT/AST 21 U/L (15-37); SGPT/ALT 19 U/L (12-78); WHITE BLOOD COUNT 7.4 K/mm3 (4.0-10.0)
[2017-09-11 08:27] LABS: ALK PHOS 83 U/L (45-117); BILIRUBIN,TOTAL 0.4 mg/dL (0.2-1.0); TOT PROT 5.9 g/dl (6.4-8.2)
--- NOTE | 2017-09-11 09:46 | PN ---
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 (short form) - Note 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: Chief Complaint: Events noted, notes reviewed, remains non verbal, in no distress History of Present Illness: Seen and examined on telemetry. Events noted, notes reviewed, remains non verbal , in no distress Medications: Current Medications Acetaminophen (Tylenol Suppository -) 650 mg [place] Q6H PRN PRN Reason: FEVER OR PAIN Last Admin: 09/10/17 21:24 Dose: 650 mg Amlodipine Besylate (Norvasc -) 5 mg PO DAILY [facility] Last Admin: 09/10/17 09:13 Dose: 5 mg Aspirin (Asa -) 81 mg PO DAILY [facility] Last Admin: 09/10/17 09:13 Dose: 81 mg Atorvastatin Calcium (Lipitor -) 10 mg PO HS [facility] Last Admin: 09/10/17 21:06 Dose: 10 mg Donepezil HCl (Aricept -) 10 mg PO DAILY [facility] Last Admin: 09/10/17 09:13 Dose: 10 mg Dorzolamide HCl (Trusopt 2%) 1 drop OU BID [facility] Last Admin: 09/10/17 21:07 Dose: 1 drop Fluticasone Propionate (Flonase -) 2 spray NS DAILY [facility] Last Admin: 09/10/17 09:14 Dose: 2 sprays Heparin Sodium (Porcine) (Heparin -) 5,000 unit SQ BID [facility] Last Admin: 09/10/17 21:07 Dose: 5,000 unit Meropenem 1 gm/ Dextrose 100 mls @ 100 mls/hr IVPB Q8H-IV [facility] PRN Reason: Protocol Last Admin: 09/11/17 02:43 Dose: 100 mls/hr Latanoprost (Xalatan 0.005% Eye Drops -) 1 drop OD HS [facility] Last Admin: 09/10/17 21:07 Dose: 1 drop Losartan Potassium (Cozaar -) 100 mg PO DAILY [facility] Last Admin: 09/10/17 09:13 Dose: 100 mg Metoprolol Tartrate (Lopressor -) 25 mg PO BID [facility] Last Admin: 09/10/17 21:06 Dose: 25 mg Mirtazapine (Remeron -) 15 mg PO HS [facility] Last Admin: 09/10/17 21:07 Dose: 15 mg Pantoprazole Sodium (Protonix Iv) 40 mg IVPUSH DAILY [facility] Last Admin: 09/10/17 09:14 Dose: 40 mg Risperidone (Risperdal -) 0.5 mg PO HS [facility] Last Admin: 09/10/17 21:06 Dose: 0.5 mg Review of Systems Unable to obtain Vital Signs: Last Vital Signs Temp Pulse Resp BP Pulse Ox 98.7 F 73 23 136/73 97 09/11/17 06:00 09/11/17 06:00 09/11/17 06:00 09/11/17 06:00 09/10/17 21:00 Intake & Output 09/08/17 09/09/17 09/10/17 09/11/17 23:59 23:59 23:59 23:59 Intake Total 425 360 100 Output Total 1914 6280 Balance -1490 -9670 360 100 Constitutional: No Distress, Calm Neck: Supple Negative JVD No Bruit Respiratory: Clear to A&P Bilaterally Cardiovascular: S1 S2 Regular Rate and Rhythm Gastrointestinal: Soft Benign Normal Bowel Sounds Ext: No Edema Labs: CBC, BMP 09/11/17 06:30 09/11/17 06:30 Assessment/Plan ASSESSMENT: 1. Aspiration pneumonia, resolving 2. CAD with evidence of demand ischemic injury, angina pectoris 3. Diastolic LV dysfunction with class I NYHA classification LV failure, compensated/euvolemic 4. Hypertension 5. Pulmonary hypertension 6. Persistent toxic-metabolic encephelopthy, underlying dementia 7. Hypernatremia 8. Hypokalemia, resolved PLAN: 1. Continue Lopressor 2. Continue Norvasc 3. Continue Losartan 4. Continue Lipitor 5. Continue ASA 6. Antibiotics as per the primary team 7. Hypernatremia correction Elena Mckeon M.D.
--- NOTE | 2017-09-11 09:48 | PN ---
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, Physician Chief Complaint: ID On Meropenem now but has had antibiotics since day 1 admission for PNA She is comfortable and afebrile - Current Medication List Current Medications: Active Medications Acetaminophen (Tylenol Suppository -) 650 mg [place] Q6H PRN PRN Reason: FEVER OR PAIN Last Admin: 09/10/17 21:24 Dose: 650 mg Amlodipine Besylate (Norvasc -) 5 mg PO DAILY [facility] Last Admin: 09/10/17 09:13 Dose: 5 mg Aspirin (Asa -) 81 mg PO DAILY [facility] Last Admin: 09/10/17 09:13 Dose: 81 mg Atorvastatin Calcium (Lipitor -) 10 mg PO HS [facility] Last Admin: 09/10/17 21:06 Dose: 10 mg Donepezil HCl (Aricept -) 10 mg PO DAILY [facility] Last Admin: 09/10/17 09:13 Dose: 10 mg Dorzolamide HCl (Trusopt 2%) 1 drop OU BID [facility] Last Admin: 09/10/17 21:07 Dose: 1 drop Fluticasone Propionate (Flonase -) 2 spray NS DAILY [facility] Last Admin: 09/10/17 09:14 Dose: 2 sprays Heparin Sodium (Porcine) (Heparin -) 5,000 unit SQ BID [facility] Last Admin: 09/10/17 21:07 Dose: 5,000 unit Meropenem 1 gm/ Dextrose 100 mls @ 100 mls/hr IVPB Q8H-IV [facility] PRN Reason: Protocol Last Admin: 09/11/17 02:43 Dose: 100 mls/hr Latanoprost (Xalatan 0.005% Eye Drops -) 1 drop OD HS [facility] Last Admin: 09/10/17 21:07 Dose: 1 drop Losartan Potassium (Cozaar -) 100 mg PO DAILY [facility] Last Admin: 09/10/17 09:13 Dose: 100 mg Metoprolol Tartrate (Lopressor -) 25 mg PO BID [facility] Last Admin: 09/10/17 21:06 Dose: 25 mg Mirtazapine (Remeron -) 15 mg PO HS [facility] Last Admin: 09/10/17 21:07 Dose: 15 mg Pantoprazole Sodium (Protonix Iv) 40 mg IVPUSH DAILY [facility] Last Admin: 09/10/17 09:14 Dose: 40 mg Risperidone (Risperdal -) 0.5 mg PO HS [facility] Last Admin: 09/10/17 21:06 Dose: 0.5 mg - Objective Vital Signs: Vital Signs Temperature 98.7 F 09/11/17 06:00 Pulse Rate 73 09/11/17 06:00 Respiratory Rate 23 09/11/17 06:00 Blood Pressure 136/73 09/11/17 06:00 O2 Sat by Pulse Oximetry (%) 97 09/10/17 21:00 Constitutional: Yes: Well Nourished, No Distress HENT: Yes: WNL, Atraumatic Neck: Yes: WNL, Supple Cardiovascular: Yes: Regular Rate and Rhythm, S1, S2. No: Murmur Respiratory: Yes: WNL, Regular, CTA Bilaterally. No: Rales Gastrointestinal: Yes: Soft. No: WNL, Normal Bowel Sounds, Tenderness, Tenderness, Epigastrium Edema: No Labs: CBC, BMP 09/11/17 06:30 09/11/17 06:30 INR, PTT INR 1.08 (0.82-1.09) 09/04/17 14:40 Problem List - Problems (1) Dehydration Code(s): E86.0 - DEHYDRATION (2) Gastroenteritis Code(s): K52.9 - NONINFECTIVE GASTROENTERITIS AND COLITIS, UNSPECIFIED (3) Cellulitis Code(s): L03.90 - CELLULITIS, UNSPECIFIED Assessment/Plan Microbiology 09/08/17 08:49 Urine For Antigen Detection Legionella Antigen - Final 09/08/17 08:49 Urine For Antigen Detection Streptococcus pneumoniae Antigen (M - Final 09/08/17 08:49 Urine - Urine - Catheterized Urine Culture - Final NO GROWTH OBTAINED 09/06/17 05:30 Nasopharyngeal Swab Influenza Types A,B Antigen (SUSANNAH) - Final 09/06/17 05:30 Nasopharyngeal Swab - Final 09/04/17 14:40 Urine - Urine Clean Catch Urine Culture - Final NO GROWTH OBTAINED 09/04/17 14:40 Blood - Peripheral Venous Blood Culture - Final NO GROWTH AFTER 5 DAYS INCUBATION 09/04/17 14:40 Blood - Peripheral Venous Blood Culture - Final NO GROWTH AFTER 5 DAYS INCUBATION 09/08/17 13:30 Stool Salmonella/Shigella Culture - Preliminary 09/08/17 13:30 Stool Escherichia coli 0157 Culture - Preliminary NO ENTERIC PATHOGENS, 24 HOURS, ON PRIMARY PLATES NO ENTERIC PATHOGENS, 24 HOURS, ON PRIMARY PLATES NO ENTERIC PATHOGENS, 24 HOURS, ON PRIMARY PLATES NO ENTERIC PATHOGENS, 24 HOURS, ON PRIMARY PLATES 09/08/17 05:35 Blood - Peripheral Venous Blood Culture - Preliminary NO GROWTH OBTAINED AFTER 72 HOURS, INCUBATION TO CONTINUE FOR 2 DAYS. 09/08/17 05:35 Blood - Peripheral Venous Blood Culture - Preliminary NO GROWTH OBTAINED AFTER 72 HOURS, INCUBATION TO CONTINUE FOR 2 DAYS. Laboratory Tests 09/11/17 09/11/17 06:30 06:30 WBC 7.4 Hgb 11.1 Hct 30.7 L Plt Count 424 Creatinine 0.8 Assessment Suspect she aspirated with extensive infiltrate unspecified organism Stable now Plan Consideration of oral antibiotics in next day or 2 to complete Lu MARR
[2017-09-11 10:06] LABS: BASOPHIL (MANUAL) 2 % (0-2.0); METAMYELOCYTE 4 % (0-2); MYELOCYTE 2 % (0-2); TOTAL CELLS COUNTED 100
[2017-09-11 10:08] LABS: PLATELET ESTIMATE ADEQUATE (NORMAL)
[2017-09-11] MEDS: amLODIPine BESYLATE 5 MG TABLET (FP) PO SCH (10:37)
[2017-09-11] MEDS: METOPROLOL TARTRATE 25 MG TABLET (FP) PO SCH ×2 (10:37→21:48)
[2017-09-11] MEDS: LOSARTAN POTASSIUM 50 MG TABLET (FP) PO SCH (10:37)
[2017-09-11] MEDS: PANTOPRAZOLE SODIUM 40 MG VIAL IVPUSH SCH (10:37)
[2017-09-11] MEDS: DONEPEZIL HCL 10 MG TABLET (FP) PO SCH (10:38)
[2017-09-11] MEDS: ASPIRIN 81 MG CHEWABLE TABLETS PO SCH (10:38)
[2017-09-11] MEDS: HEPARIN NA (PORCINE) 5,000 UNITS/ML 1ML VIAL SQ SCH ×2 (10:38→21:49)
[2017-09-11] MEDS: FLUTICASONE PROP 0.05% 16 GM NASAL SPRAY NS SCH (10:38)
[2017-09-11] MEDS: DORZOLAMIDE 2% HCL OPHTHALMIC SOLUTION 10 ML BOTTLE OU SCH ×2 (10:39→21:50)
--- NOTE | 2017-09-11 13:04 | PN ---
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 (short form) - Note 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: PULMONARY VSS/low grade temp Gen: lethargic, breathing nonlabored Heart: RRR Lung: decreased breath sounds at the bases Abd: soft, nontender Ext: no edema LABS/MEDS/NOTES REVIEWED A/P Pneumonia +Troponins likely demand ischemia HTN Pulmonary HTN Parkinsons Dementia - continue antibiotics - aspiration precautions - O2 to keep SpO2 >90% - inhaled bronchodilators as needed - replete lytes - DVT prophylaxis - Consider P. care evaluation for GOC due to overall poor condition Yani BROWN MD
--- NOTE | 2017-09-11 17:50 | PN ---
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 (short form) - Note 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: Subjective: The patient was seen and examined at the bedside, she is A&Ox1 ( person only). Current Medications Generic Name Dose Route Start Last Admin Trade Name Freq PRN Reason Stop Dose Admin Acetaminophen 650 mg 09/08/17 06:35 09/10/17 21:24 Tylenol Suppository - DC 650 mg Q6H PRN Administration FEVER OR PAIN Amlodipine Besylate 5 mg 09/08/17 10:00 09/11/17 10:37 Norvasc - PO 5 mg DAILY ASTRID Administration Aspirin 81 mg 09/08/17 10:00 09/11/17 10:38 Asa - PO 81 mg DAILY ASTRID Administration Atorvastatin Calcium 10 mg 09/07/17 22:00 09/10/17 21:06 Lipitor - PO 10 mg HS ASTRID Administration Donepezil HCl 10 mg 09/08/17 10:00 09/11/17 10:38 Aricept - PO 10 mg DAILY ASTRID Administration Dorzolamide HCl 1 drop 09/07/17 22:00 09/11/17 10:39 Trusopt 2% OU 1 drop BID ASTRID Administration Fluticasone Propionate 2 spray 09/08/17 10:00 09/11/17 10:38 Flonase - NS 2 sprays DAILY ASTRID Administration Heparin Sodium (Porcine) 5,000 unit 09/07/17 22:00 09/11/17 10:38 Heparin - SQ 5,000 unit BID ASTRID Administration Meropenem 1 gm/ Dextrose 100 mls @ 100 mls/hr 09/09/17 18:00 09/11/17 10:36 IVPB 100 mls/hr Q8H-IV ASTRID Administration Protocol Latanoprost 1 drop 09/07/17 22:00 09/10/17 21:07 Xalatan 0.005% Eye Drops - OD 1 drop HS ASTRID Administration Losartan Potassium 100 mg 09/08/17 10:00 09/11/17 10:37 Cozaar - PO 100 mg DAILY ASTRID Administration Metoprolol Tartrate 25 mg 09/10/17 22:00 09/11/17 10:37 Lopressor - PO 25 mg BID ASTRID Administration Mirtazapine 15 mg 09/07/17 22:00 09/10/17 21:07 Remeron - PO 15 mg HS ASTRID Administration Pantoprazole Sodium 40 mg 09/09/17 10:11 09/11/17 10:37 Protonix Iv IVPUSH 40 mg DAILY ASTRID Administration Risperidone 0.5 mg 09/07/17 22:00 09/10/17 21:06 Risperdal - PO 0.5 mg HS ASTRID Administration Objective: Vital Signs Period Temp Pulse Resp BP Sys/Matute Pulse Ox Last 24 Hr 98.0 F-100.1 F 68-90 20-23 118-152/62-80 96-97 Physical Exam: General: NAD, A&Ox1 Lungs: Decreased breath sounds at bases Heart: RRR, S1S2 Abd: Soft, non-tender, non-distended Ext: Warm, well-perfused. 2+ DP/PT bilaterally. No edema CBCD WBC 7.4 K/mm3 (4.0-10.0) 09/11/17 06:30 RBC 3.38 M/mm3 (3.60-5.2) L 09/11/17 06:30 Hgb 11.1 GM/dL (10.7-15.3) 09/11/17 06:30 Hct 30.7 % (32.4-45.2) L 09/11/17 06:30 MCV 90.6 fl (80-96) 09/11/17 06:30 MCHC 36.1 g/dl (32.0-36.0) H 09/11/17 06:30 RDW 14.1 % (11.6-15.6) 09/11/17 06:30 Plt Count 424 K/MM3 (134-434) 09/11/17 06:30 MPV 7.5 fl (7.5-11.1) 09/11/17 06:30 CMP Sodium 146 mmol/L (136-145) H 09/11/17 06:30 Potassium 3.9 mmol/L (3.5-5.1) 09/11/17 06:30 Chloride 107 mmol/L (98-107) 09/11/17 06:30 Carbon Dioxide 31 mmol/L (21-32) 09/11/17 06:30 Anion Gap 8 (8-16) 09/11/17 06:30 BUN 23 mg/dL (7-18) H D 09/11/17 06:30 Creatinine 0.8 mg/dL (0.55-1.02) 09/11/17 06:30 Creat Clearance w eGFR > 60 (>60) 09/11/17 06:30 Random Glucose 102 mg/dL (74-106) 09/11/17 06:30 Calcium 8.4 mg/dL (8.5-10.1) L 09/11/17 06:30 Total Bilirubin 0.4 mg/dL (0.2-1.0) 09/11/17 06:30 AST 21 U/L (15-37) 09/11/17 06:30 ALT 19 U/L (12-78) 09/11/17 06:30 Alkaline Phosphatase 83 U/L (45-117) 09/11/17 06:30 Total Protein 5.9 g/dl (6.4-8.2) L 09/11/17 06:30 Albumin 2.2 g/dl (3.4-5.0) L 09/11/17 06:30 CARDIAC ENZYMES Creatine Kinase 331 IU/L (26-192) H 09/06/17 06:00 Troponin I 0.49 ng/ml (0.00-0.05) H 09/06/17 06:00 Vital Signs Period Temp Pulse Resp BP Sys/Matute Pulse Ox Last 24 Hr 98.0 F-100.1 F 68-90 20-23 118-152/62-80 96-97 Microbiology 09/08/17 13:30 Stool Salmonella/Shigella Culture - Final NO GROWTH OF SALMONELLA OR SHIGELLA SPECIES OBTAINED 09/08/17 13:30 Stool Campylobacter Culture - Final NO GROWTH OF CAMPYLOBACTER SPECIES OBTAINED 09/08/17 13:30 Stool Yersinia Culture - Final NO GROWTH OF YERSINIA SPECIES OBTAINED 09/08/17 13:30 Stool Vibrio Culture - Final NO GROWTH OF VIBRIO SPECIES OBTAINED 09/08/17 13:30 Stool Escherichia coli 0157 Culture - Final NO GROWTH OF E COLI 0157 OBTAINED 09/08/17 05:35 Blood - Peripheral Venous Blood Culture - Preliminary NO GROWTH OBTAINED AFTER 72 HOURS, INCUBATION TO CONTINUE FOR 2 DAYS. 09/08/17 05:35 Blood - Peripheral Venous Blood Culture - Preliminary NO GROWTH OBTAINED AFTER 72 HOURS, INCUBATION TO CONTINUE FOR 2 DAYS. 09/04/17 14:40 Blood - Peripheral Venous Blood Culture - Final NO GROWTH AFTER 5 DAYS INCUBATION 09/04/17 14:40 Blood - Peripheral Venous Blood Culture - Final NO GROWTH AFTER 5 DAYS INCUBATION 09/08/17 08:49 Urine - Urine - Catheterized Urine Culture - Final NO GROWTH OBTAINED 09/08/17 08:49 Urine For Antigen Detection Legionella Antigen - Final 09/08/17 08:49 Urine For Antigen Detection Streptococcus pneumoniae Antigen (M - Final 09/06/17 05:30 Nasopharyngeal Swab Influenza Types A,B Antigen (SUSANNAH) - Final 09/06/17 05:30 Nasopharyngeal Swab - Final 09/04/17 14:40 Urine - Urine Clean Catch Urine Culture - Final NO GROWTH OBTAINED Assessment: This is an 86 year old female with PMHx of pulmonary hypertension, HTN, hyperlipidemia, glaucoma, 1st degree AV block, hearing loss, alzheimer's disease, anemia, who presented to the ED with increased weakness, lethargy, and diarrhea. Plan: 1) ID: Severe sepsis 2/2 Suspected aspiration pneumonia - Improving - Continue Meropenem, can likely switch to po in the next 2 days - Appreciate ID consult Right lower extremity cellulitis - Doppler negative for DVT - Abx as above 2) Neuro: Metabolic encephalopathy 2/2 infection - Brain MRI, head CT noted - Patient is awake and alert, A&Ox1 today - Appreciate neuro consult 3) Cardiology: CAD with evidence of demand ischemia - Trops peaked at 0.67 - Workup per cards Diastolic LV dysfunction - Appear euvolemic at this time - Continue ASA - Continue Lipitor - Continue Lopressor - Continue Losartan HTN - As above - Continue Norvasc Hyperlipidemia - Continue Lipitor 4) F/E/N: - Monitor electrolytes - Dysphagia pureed 5) Prophylaxis: - Heparin 5,000u sq bid 6) Dispo: - Requires continued inpatient care CODE STATUS: FULL CODE Visit type - Emergency Visit Emergency Visit: Yes ED Registration Date: 09/05/17 Care time: The patient presented to the Emergency Department on the above date and was hospitalized for further evaluation of their emergent condition. - New Patient This patient is new to me today: Yes Date on this admission: 09/11/17 - Critical Care Critical Care patient: No
[2017-09-11] MEDS: ATORVASTATIN CA 10 MG TABLET (FP) PO SCH (21:48)
[2017-09-11] MEDS: risperiDONE 0.5 MG TABLET (FP) PO SCH (21:48)
[2017-09-11] MEDS: MIRTAZAPINE 15 MG TABLET (FP) PO SCH (21:48)
[2017-09-11] MEDS: LATANOPROST 0.005% OPHTH SOLN 2.5ML BOTTLE OD SCH (21:51)
[2017-09-12] MEDS ORDERED: PT OWN MED DRAWER 7, Y5N ONE ×2 (01:56→21:53)
[2017-09-12] MEDS: MEROPENEM 1 GM in DEXTROSE 5%-WATER - 100 ML IVPB SCH (02:01)
--- NOTE | 2017-09-12 08:34 | PN ---
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, Physician Chief Complaint: ID She appears very comfortable Getting Meropenem though no organism here ( PNA) - Current Medication List Current Medications: Active Medications Acetaminophen (Tylenol Suppository -) 650 mg FL Q6H PRN PRN Reason: FEVER OR PAIN Last Admin: 09/10/17 21:24 Dose: 650 mg Amlodipine Besylate (Norvasc -) 5 mg PO DAILY ASTRID Last Admin: 09/11/17 10:37 Dose: 5 mg Aspirin (Asa -) 81 mg PO DAILY ASTRID Last Admin: 09/11/17 10:38 Dose: 81 mg Atorvastatin Calcium (Lipitor -) 10 mg PO HS ASTRID Last Admin: 09/11/17 21:48 Dose: 10 mg Donepezil HCl (Aricept -) 10 mg PO DAILY ASTRID Last Admin: 09/11/17 10:38 Dose: 10 mg Dorzolamide HCl (Trusopt 2%) 1 drop OU BID ASTRID Last Admin: 09/11/17 21:50 Dose: 1 drop Fluticasone Propionate (Flonase -) 2 spray NS DAILY ASTRID Last Admin: 09/11/17 10:38 Dose: 2 sprays Heparin Sodium (Porcine) (Heparin -) 5,000 unit SQ BID ASTRID Last Admin: 09/11/17 21:49 Dose: 5,000 unit Meropenem 1 gm/ Dextrose 100 mls @ 100 mls/hr IVPB Q8H-IV ASTRID PRN Reason: Protocol Last Admin: 09/12/17 02:01 Dose: 100 mls/hr Latanoprost (Xalatan 0.005% Eye Drops -) 1 drop OD HS ASTRID Last Admin: 09/11/17 21:51 Dose: 1 drop Losartan Potassium (Cozaar -) 100 mg PO DAILY ASTRID Last Admin: 09/11/17 10:37 Dose: 100 mg Metoprolol Tartrate (Lopressor -) 25 mg PO BID ASTRID Last Admin: 09/11/17 21:48 Dose: 25 mg Mirtazapine (Remeron -) 15 mg PO HS ASTRID Last Admin: 09/11/17 21:48 Dose: 15 mg Pantoprazole Sodium (Protonix Iv) 40 mg IVPUSH DAILY ASTRID Last Admin: 09/11/17 10:37 Dose: 40 mg Risperidone (Risperdal -) 0.5 mg PO HS ASTRID Last Admin: 09/11/17 21:48 Dose: 0.5 mg - Objective Vital Signs: Vital Signs Temperature 98.3 F 09/12/17 02:00 Pulse Rate 81 09/12/17 02:00 Respiratory Rate 20 09/12/17 02:00 Blood Pressure 158/77 09/12/17 02:00 O2 Sat by Pulse Oximetry (%) 95 09/11/17 20:20 Constitutional: Yes: No Distress HENT: Yes: WNL, Atraumatic Neck: Yes: WNL, Supple Cardiovascular: Yes: Regular Rate and Rhythm, S1, S2. No: Murmur Respiratory: Yes: WNL, Regular, CTA Bilaterally. No: Rales, Rhonchi Gastrointestinal: Yes: WNL, Normal Bowel Sounds, Soft. No: Tenderness, Tenderness, Epigastrium Edema: No Labs: CBC, BMP 09/11/17 06:30 09/11/17 06:30 INR, PTT INR 1.08 (0.82-1.09) 09/04/17 14:40 Problem List - Problems (1) Dehydration Code(s): E86.0 - DEHYDRATION (2) Gastroenteritis Code(s): K52.9 - NONINFECTIVE GASTROENTERITIS AND COLITIS, UNSPECIFIED (3) Cellulitis Code(s): L03.90 - CELLULITIS, UNSPECIFIED Assessment/Plan Microbiology 09/08/17 08:49 Urine - Urine - Catheterized Urine Culture - Final NO GROWTH OBTAINED 09/06/17 05:30 Nasopharyngeal Swab Influenza Types A,B Antigen (SUSANNAH) - Final 09/06/17 05:30 Nasopharyngeal Swab - Final 09/04/17 14:40 Urine - Urine Clean Catch Urine Culture - Final NO GROWTH OBTAINED 09/04/17 14:40 Blood - Peripheral Venous Blood Culture - Final NO GROWTH AFTER 5 DAYS INCUBATION 09/04/17 14:40 Blood - Peripheral Venous Blood Culture - Final NO GROWTH AFTER 5 DAYS INCUBATION 09/08/17 05:35 Blood - Peripheral Venous Blood Culture - Preliminary NO GROWTH OBTAINED AFTER 96 HOURS, INCUBATION TO CONTINUE FOR 1 DAYS. 09/08/17 05:35 Blood - Peripheral Venous Blood Culture - Preliminary NO GROWTH OBTAINED AFTER 96 HOURS, INCUBATION TO CONTINUE FOR 1 DAYS. Laboratory Tests 09/11/17 06:30 WBC 7.4 Hgb 11.1 Hct 30.7 L Plt Count 424 Neutrophils % (Manual) 56 D Lymphocytes % (Manual) 25 D Monocytes % (Manual) 6 Eosinophils % (Manual) 5 H D Basophils % (Manual) 2 Myelocytes % (Man) 2 Assessment Pneumonia aspiration culture negative Plan Given her age and bedridden status consideration given to switching her to oral antibiotic Augmentin for 3 more days po Discharge planning Lu MARR
--- NOTE | 2017-09-12 09:45 | PN ---
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, Physician History of Present Illness: Afebrile. Arousable on NC, EEG shows diffuse encephelopathy vascular, degenerative vs toxic-metabolic. - Current Medication List Current Medications: Active Medications Acetaminophen (Tylenol Suppository -) 650 mg NM Q6H PRN PRN Reason: FEVER OR PAIN Last Admin: 09/10/17 21:24 Dose: 650 mg Amlodipine Besylate (Norvasc -) 5 mg PO DAILY [facility] Last Admin: 09/11/17 10:37 Dose: 5 mg Aspirin (Asa -) 81 mg PO DAILY [facility] Last Admin: 09/11/17 10:38 Dose: 81 mg Atorvastatin Calcium (Lipitor -) 10 mg PO HS [facility] Last Admin: 09/11/17 21:48 Dose: 10 mg Clindamycin HCl (Cleocin -) 300 mg PO TID [facility] Donepezil HCl (Aricept -) 10 mg PO DAILY [facility] Last Admin: 09/11/17 10:38 Dose: 10 mg Dorzolamide HCl (Trusopt 2%) 1 drop OU BID [facility] Last Admin: 09/11/17 21:50 Dose: 1 drop Fluticasone Propionate (Flonase -) 2 spray NS DAILY [facility] Last Admin: 09/11/17 10:38 Dose: 2 sprays Heparin Sodium (Porcine) (Heparin -) 5,000 unit SQ BID [facility] Last Admin: 09/11/17 21:49 Dose: 5,000 unit Latanoprost (Xalatan 0.005% Eye Drops -) 1 drop OD HS [facility] Last Admin: 09/11/17 21:51 Dose: 1 drop Levofloxacin (Levaquin -) 250 mg PO DAILY@0600 [facility] Losartan Potassium (Cozaar -) 100 mg PO DAILY [facility] Last Admin: 09/11/17 10:37 Dose: 100 mg Metoprolol Tartrate (Lopressor -) 25 mg PO BID [facility] Last Admin: 09/11/17 21:48 Dose: 25 mg Mirtazapine (Remeron -) 15 mg PO HS [facility] Last Admin: 09/11/17 21:48 Dose: 15 mg Pantoprazole Sodium (Protonix Iv) 40 mg IVPUSH DAILY [facility] Last Admin: 09/11/17 10:37 Dose: 40 mg Risperidone (Risperdal -) 0.5 mg PO HS [facility] [place] Last Admin: 09/11/17 21:48 Dose: 0.5 mg - Objective Vital Signs: Vital Signs Temperature 98.3 F 09/12/17 02:00 Pulse Rate 81 09/12/17 02:00 Respiratory Rate 20 09/12/17 02:00 Blood Pressure 158/77 09/12/17 02:00 O2 Sat by Pulse Oximetry (%) 95 09/11/17 20:20 Constitutional: Yes: No Distress, Calm Neck: Yes: Supple Cardiovascular: Yes: Regular Rate and Rhythm, Murmur (2/6 SM) Respiratory: Yes: Regular, Diminished, On Nasal O2 Gastrointestinal: Yes: Soft, Hypoactive Bowel Sounds Edema: No Labs: CBC, BMP 09/11/17 06:30 09/11/17 06:30 INR, PTT INR 1.08 (0.82-1.09) 09/04/17 14:40 Problem List - Problems (1) Dehydration Code(s): E86.0 - DEHYDRATION (2) Demand ischemia Code(s): I24.8 - OTHER FORMS OF ACUTE ISCHEMIC HEART DISEASE (3) Dementia in Alzheimer's disease Code(s): G30.9 - ALZHEIMER'S DISEASE, UNSPECIFIED F02.80 - DEMENTIA IN OTH DISEASES CLASSD ELSWHR W/O BEHAVRL DISTURB (4) Hypertensive cardiovascular disease Code(s): I11.9 - HYPERTENSIVE HEART DISEASE WITHOUT HEART FAILURE Qualifiers: Heart failure presence: without heart failure Qualified Code(s): I11.9 - Hypertensive heart disease without heart failure; I11.9 - Hypertensive heart disease without heart failure; I11.9 - Hypertensive heart disease without heart failure (5) Hyperlipidemia Code(s): E78.5 - HYPERLIPIDEMIA, UNSPECIFIED Qualifiers: Hyperlipidemia type: pure hypercholesterolemia Qualified Code(s): E78.00 - Pure hypercholesterolemia, unspecified; E78.00 - Pure hypercholesterolemia, unspecified; E78.00 - Pure hypercholesterolemia, unspecified; E78.0 - Pure hypercholesterolemia (6) Diastolic dysfunction without heart failure Code(s): I51.9 - HEART DISEASE, UNSPECIFIED (7) Fever Code(s): R50.9 - FEVER, UNSPECIFIED Qualifiers: Fever type: unspecified Qualified Code(s): R50.9 - Fever, unspecified; R50.9 - Fever, unspecified (8) Pneumonia Code(s): J18.9 - PNEUMONIA, UNSPECIFIED ORGANISM Qualifiers: Pneumonia type: due to unspecified organism Laterality: right Lung location: lower lobe of lung Qualified Code(s): J18.1 - Lobar pneumonia, unspecified organism; J18.1 - Lobar pneumonia, unspecified organism; J18.1 - Lobar pneumonia, unspecified organism (9) Severe tricuspid regurgitation Code(s): I07.1 - RHEUMATIC TRICUSPID INSUFFICIENCY Assessment/Plan 09/07/2017 Echo: Normal LV size and fxn, mod CHUCK, severe TR 1. Aspiration pneumonia, resolving 2. CAD with evidence of demand ischemic injury, angina pectoris 3. Diastolic LV dysfunction with class I NYHA classification LV failure, compensated/euvolemic 4. Hypertension 5. Pulmonary hypertension 6. Persistent toxic-metabolic encephelopthy, underlying dementia 7. Hypernatremia improved 8. Hypokalemia, resolved P: 1. Continue Lopressor 25 bid, Norvasc 5 qd, ASA 81 qd, losartan 100 qd, Lipitor 10 qhs, hold Lasix 20 qd for now 2. Complete empiric abx course, BD, O2 as needed 3. DVT and GI prophylaxis 4. D/c planning
[2017-09-12] MEDS: PANTOPRAZOLE SODIUM 40 MG VIAL IVPUSH SCH (10:02)
[2017-09-12] MEDS: HEPARIN NA (PORCINE) 5,000 UNITS/ML 1ML VIAL SQ SCH ×2 (10:02→21:58)
[2017-09-12] MEDS: DORZOLAMIDE 2% HCL OPHTHALMIC SOLUTION 10 ML BOTTLE OU SCH ×2 (10:03→21:59)
[2017-09-12] MEDS: FLUTICASONE PROP 0.05% 16 GM NASAL SPRAY NS SCH (10:03)
[2017-09-12] MEDS: DONEPEZIL HCL 10 MG TABLET (FP) PO SCH (10:03)
[2017-09-12] MEDS: ASPIRIN 81 MG CHEWABLE TABLETS PO SCH (10:03)
[2017-09-12] MEDS: LEVOFLOXACIN 250 MG TABLET (FP) PO SCH (10:03)
[2017-09-12] MEDS: amLODIPine BESYLATE 5 MG TABLET (FP) PO SCH (10:03)
[2017-09-12] MEDS: METOPROLOL TARTRATE 25 MG TABLET (FP) PO SCH ×2 (10:03→21:58)
[2017-09-12] MEDS: LOSARTAN POTASSIUM 50 MG TABLET (FP) PO SCH (10:03)
[2017-09-12 10:24] LABS: MCHC 33.9 g/dl (32.0-36.0); MEAN CELL VOLUME 85.5 fl (80-96); MEAN PLT VOLUME 7.1 fl (7.5-11.1); PLATELET COUNT 503 K/MM3 (134-434); RDW 14.1 % (11.6-15.6); WHITE BLOOD COUNT 8.6 K/mm3 (4.0-10.0)
[2017-09-12 10:44] LABS: ALBUMIN 2.6 g/dl (3.4-5.0); ANION GAP 7 (8-16); CALCIUM 8.9 mg/dL (8.5-10.1); CO2 28 mmol/L (21-32); GLUCOSE,RANDOM 98 mg/dL (74-106)
[2017-09-12 10:49] LABS: ALK PHOS 94 U/L (45-117); BILIRUBIN,TOTAL 0.9 mg/dL (0.2-1.0); CREATININE 0.8 mg/dL (0.55-1.02); SGOT/AST 23 U/L (15-37); SGPT/ALT 20 U/L (12-78); TOT PROT 6.7 g/dl (6.4-8.2)
[2017-09-12 11:30] LABS: PLATELET ESTIMATE INCREASED (NORMAL)
[2017-09-12 11:31] LABS: MYELOCYTE 1 % (0-2); TOTAL CELLS COUNTED 100
--- NOTE | 2017-09-12 12:03 | DS ---
Physical Exam: SUBJECTIVE: Patient seen and examined. She appears to be at her baseline. OBJECTIVE: For discharge home rehab/snf-patient is stable for d/c. Patient is a DNR/DNI Vital Signs Period Temp Pulse Resp BP Sys/Matute Pulse Ox Last 24 Hr 98.0 F-99.3 F 68-81 20-22 140-167/62-97 92-95 PHYSICAL EXAM GENERAL: Hx of alzheimers dementia, more awake alert, periods of confusion, can answer questions appropriately at times HEAD: Normal with no signs of trauma, CT head negative EARS, NOSE, THROAT: Ears normal, nares patent, oropharynx clear without exudates. Moist mucous membranes. NECK: Normal range of motion, supple without lymphadenopathy, JVD, or masses. LUNGS: improvement of right lung crackles, tolerating room air ABDOMEN: Soft, nontender, mildly distended, +bowel sounds, no guarding, no rebound, no masses. No hepatomegaly or splenomegaly. MUSCULOSKELETAL: Normal range of motion at all joints. No bony deformities or tenderness. No CVA tenderness. UPPER EXTREMITIES: 2+ pulses, warm, well-perfused. No cyanosis. No clubbing. No peripheral edema. LOWER EXTREMITIES: no edema, right lower ext non-reddened NEUROLOGICAL: now more alert, hx of alzhemiers dementia LABS Laboratory Results - last 24 hr 09/12/17 09/12/17 10:12 10:12 WBC 8.6 RBC 4.12 D Hgb 11.9 Hct 35.2 MCV 85.5 MCH 29.0 D MCHC 33.9 RDW 14.1 Plt Count 503 H MPV 7.1 L Total Counted 100 Neutrophils % No Result Required. Neutrophils % (Manual) 58 Lymphocytes % No Result Required. Lymphocytes % (Manual) 26 Monocytes % (Manual) 12 H D Eosinophils % (Manual) 3 Myelocytes % (Man) 1 D Platelet Estimate Increased Sodium 141 Potassium 3.9 Chloride 106 Carbon Dioxide 28 Anion Gap 7 L BUN 17 D Creatinine 0.8 Creat Clearance w eGFR > 60 Random Glucose 98 Calcium 8.9 Total Bilirubin 0.9 D AST 23 ALT 20 Alkaline Phosphatase 94 Total Protein 6.7 Albumin 2.6 L HOSPITAL COURSE: Date of Admission:09/05/17 Date of Discharge: 09/12/17 ASSESSMENT/PLAN: Patient is an 86 year old female with a significant past medical history of pulmonary HTN, hypertension, HLD, glaucoma, 1st degree AV block, hearing loss alzheimer's disease and anemia. She presents to the ED from her assisted living facility for increased weakness, lethargy and diarrhea. Due to the patient's dementia and hearing impairment, she is not a good historian. Per ED , the patient has been having diarrhea over the past 2 days prior to admission. She began experiencing worsening weakness and appearing more lethargic and nausea and an episode of non-bilious, non-bloody vomiting per ED notess. The facility then called EMS. The patient denies any fevers, chills, chest pain, SOB, or abdominal pain. She was also noted to have redness of bilateral lower extremities, right > left on admission. ID consulted for possible cellulitis of RLE. During 2nd day of hospitalization, patient's admission status was changed from OBS to inpatient secondary to sepsis. Imaging: Head CT r/o stroke, negative, awaiting brain MRI study Chest xray 09/06/2017: New right upper lobe, RLL consolidation with bronchograms , increased lung markings noted on left retrocardiac region, suggestion of right pleural effusion, no pneumothorax seen. Erick MRI: few old small vessel infarcts, seq, likely sequela of HTN, no acute infarction, no evidence of intracerebral hemorrhage EEG: abnormal EEG, diffused enchep. of metabolic deg. or vascular origin. ID: Sepsis, likely secondary to aspiration pnemonia vs. RLE cellulitis (or both), resolved A/P: Patient has received a full course of antibiotics since admission, was initially on Ceftriaxone, and then Meropenem 1 gram She will continue 3 more days of PO antibiotics: Levaquin 250mg for 3 more days 09/12 to 09/14 and Clindamycin TID 09/12 to 1025 Her respiratory status is now improving, she is tolerating room air Can use oxygen at 2 liters as needed. Right Lower ext Cellulitis, noted on admission, resolved Lactic acid within normal limits, remains afebrile WBC now normalized, vitals stable ID cleared for discharge on Levaquin and Clindamycin x 3 more days Neuro: Metabolic Encephalopathy likely secondary to fever, sepsis in the setting of alzheimers dementia, resolving A/P:More awake, back to her baseline. She is able to open her eyes and answer questions briefly Head CT negative, brain MRI and EEG as noted above Neuro consulted during hospitalization, pt ruled out for stroke or seizures Cardiology: Pulmonary Hypertension/Hypertension, resolving A/P: Monitor for fluid overload, now off IVFs Lasix as needed, but her oxygen saturation on room air are stable 1st degree AV block, chronic A/P: AV block noted, cardiology cleared for discharge Elevated Troponins A/P: 0.05>0.21>0.67 >0.49 Likely due to demand, cardiology cleared for discharge Pulmonary: Aspiration pneumonia, shortness of breath/New right upper lobe, RLL consolidation, resolving A/P: On room air, treated with IV antibiotics during hospitalization, now on PO antibiotics for 3 more days Right lower ext rule out DVT, ruled out A/P: No longer has edema GI: Dehydration secondary to diarrhea episodes/non bilious vomiting/nausea, resolved A/P: Monitor electrolytes, encourage PO intake, aspiration precautions Disposition. DNR/DNI. Patient stable for discharge to rehab/nursing facility. Minutes to complete discharge: 60 Discharge Summary Reason For Visit: DEHYDRATION Current Active Problems Acute respiratory failure with hypoxia (Acute) Cellulitis (Acute) Dehydration (Acute) Demand ischemia (Acute) Dementia in Alzheimer's disease (Acute) Diastolic dysfunction without heart failure (Acute) Fever (Acute) Gastroenteritis (Acute) Hyperlipidemia (Acute) Hypertensive cardiovascular disease (Acute) Pneumonia (Acute) Severe tricuspid regurgitation (Acute) Condition: Stable - Instructions Diet, Activity, Other Instructions: Mrs. Carver: Please continue the antibiotics for your aspiration pneumonia for 3 more day as follows: Levaquin 250mg daily from 09/12 to 09/14 Clindamycin TID PO from 09/12 to 09/14 Maintain aspiration precautions: HOB elevated at 90degrees with all meals DIET: DYSPHAGIA PUREED/NECTAR THICK WITH MAGIC CUP/ENSURE COMPACT Maintain upright after meals, No PO intake with 2 to 3 hours of bedtime. Monitor respiratory status, 2 liters of oxygen as needed. Please call with any questions you may have. [facility] [phone] Referrals: Serena Ledezma MD [Primary Care Provider] - Disposition: NURSING HOME FACILITY - Home Medications Comprehensive Discharge Medication List: Ambulatory Orders Amlodipine Besylate 5 mg PO DAILY 09/04/17 Ammonium Lactate Cream [Lac-Hydrin 12% *Cream*] 1 applic TP BID 09/04/17 Aspirin [ASA -] 81 mg PO DAILY 09/04/17 Donepezil HCl [Aricept -] 10 mg PO DAILY 09/04/17 Dorzolamide HCl [Trusopt 2%] 1 drop OU BID 09/04/17 Fluticasone Prop 0.05% Nasal [Flonase -] 1 - 2 spray NS DAILY 09/04/17 Furosemide 20 mg PO DAILY 09/04/17 Latanoprost 1 drop OP HS 09/04/17 Losartan Potassium 100 mg PO DAILY 09/04/17 Mirtazapine 15 mg PO HS 09/04/17 Potassium Chloride 20 meq PO DAILY 09/04/17 Risperidone 0.5 mg PO HS 09/04/17 Simvastatin 20 mg PO HS 09/04/17 This patient is new to me today: No Emergency Visit: Yes ED Registration Date: 09/05/17 Care time: The patient presented to the Emergency Department on the above date and was hospitalized for further evaluation of their emergent condition. Critical Care patient: No - Discharge Referral Referred to [facility] No
--- NOTE | 2017-09-12 14:29 | PN ---
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: Selected Entries 09/09/17 09/09/17 09/09/17 13:25 18:00 22:00 Breakfast Lunch NPO Supper 75% 75% Temperature 09/10/17 09/10/17 09/10/17 02:07 06:32 09:00 Breakfast 25% Lunch Supper Temperature 98.9 F 98.7 F 98.9 F 09/10/17 09/10/17 09/10/17 13:00 14:00 18:00 Breakfast Lunch 50% Supper 50% Temperature 97.4 F L 09/10/17 09/10/17 09/11/17 20:00 22:00 02:00 Breakfast Lunch Supper Temperature 98.1 F 100.1 F H 98.5 F 09/11/17 09/11/17 09/11/17 06:00 09:00 10:00 Breakfast 50% Lunch 50% Supper Temperature 98.7 F 99.5 F 09/11/17 09/11/17 09/11/17 14:00 18:33 20:29 Breakfast Lunch 50% Supper Temperature 98.0 F 98.1 F 99.3 F 09/11/17 09/12/17 09/12/17 22:49 02:00 11:00 Breakfast Lunch Supper 75% Temperature 98.3 F 98.8 F Laboratory Tests 09/11/17 09/12/17 06:30 10:12 WBC 7.4 8.6 Staff reports good tolerance of diet without overt signs of dysphagia. Maintain HOB elevated after meals.
[2017-09-12] MEDS: CLINDAMYCIN HCL 150 MG CAPSULE (FP) PO SCH ×2 (15:21→21:58)
[2017-09-12] MEDS: risperiDONE 0.5 MG TABLET (FP) PO SCH (21:58)
[2017-09-12] MEDS: MIRTAZAPINE 15 MG TABLET (FP) PO SCH (21:58)
[2017-09-12] MEDS: ATORVASTATIN CA 10 MG TABLET (FP) PO SCH (21:58)
[2017-09-12] MEDS: LATANOPROST 0.005% OPHTH SOLN 2.5ML BOTTLE OD SCH (21:59)
[2017-09-13] MEDS: LEVOFLOXACIN 250 MG TABLET (FP) PO SCH ×2 (06:36→09:27)
[2017-09-13] MEDS: CLINDAMYCIN HCL 150 MG CAPSULE (FP) PO SCH ×2 (06:36→09:27)
[2017-09-13 07:08] LABS: BASOPHIL 1.4 % (0-2.0); EOSINOPHIL 5.7 % (0-4.5); MCH 29.4 pg (25.7-33.7); MEAN CELL VOLUME 86.6 fl (80-96); MEAN PLT VOLUME 7.4 fl (7.5-11.1); NEUTROPHILS 54.1 % (42.8-82.8); PLATELET COUNT 486 K/MM3 (134-434); RDW 14.1 % (11.6-15.6); WHITE BLOOD COUNT 7.4 K/mm3 (4.0-10.0)
[2017-09-13 07:26] LABS: ALBUMIN 2.5 g/dl (3.4-5.0); ANION GAP 12 (8-16); BILIRUBIN,TOTAL 0.4 mg/dL (0.2-1.0); CALCIUM 8.6 mg/dL (8.5-10.1); CO2 27 mmol/L (21-32); CREATININE 1.2 mg/dL (0.55-1.02); GLUCOSE,RANDOM 85 mg/dL (74-106); SGOT/AST 23 U/L (15-37); SGPT/ALT 20 U/L (12-78); TOT PROT 6.4 g/dl (6.4-8.2)
[2017-09-13 07:27] LABS: ALK PHOS 84 U/L (45-117)
[2017-09-13] MEDS: ASPIRIN 81 MG CHEWABLE TABLETS PO SCH (09:26)
[2017-09-13] MEDS: LOSARTAN POTASSIUM 50 MG TABLET (FP) PO SCH (09:26)
[2017-09-13] MEDS: DONEPEZIL HCL 10 MG TABLET (FP) PO SCH (09:26)
[2017-09-13] MEDS: METOPROLOL TARTRATE 25 MG TABLET (FP) PO SCH (09:26)
[2017-09-13] MEDS: amLODIPine BESYLATE 5 MG TABLET (FP) PO SCH (09:26)
[2017-09-13] MEDS: HEPARIN NA (PORCINE) 5,000 UNITS/ML 1ML VIAL SQ SCH (09:27)
[2017-09-13] MEDS: FLUTICASONE PROP 0.05% 16 GM NASAL SPRAY NS SCH (09:27)
[2017-09-13] MEDS: PANTOPRAZOLE SODIUM 40 MG VIAL IVPUSH SCH (09:27)
[2017-09-13] MEDS: DORZOLAMIDE 2% HCL OPHTHALMIC SOLUTION 10 ML BOTTLE OU SCH (09:27)
--- NOTE | 2017-09-13 09:29 | PN ---
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, Physician Chief Complaint: Events noted Underlying dementia - diffuse encephalopathy History of Present Illness: Patient was seen and examined. Arousable. Chart was reviewed Not in distress - Current Medication List Current Medications: Active Medications Acetaminophen (Tylenol Suppository -) 650 mg [place] Q6H PRN PRN Reason: FEVER OR PAIN Last Admin: 09/10/17 21:24 Dose: 650 mg Amlodipine Besylate (Norvasc -) 5 mg PO DAILY [facility] Last Admin: 09/13/17 09:26 Dose: 5 mg Aspirin (Asa -) 81 mg PO DAILY [facility] Last Admin: 09/13/17 09:26 Dose: 81 mg Atorvastatin Calcium (Lipitor -) 10 mg PO HS [facility] Last Admin: 09/12/17 21:58 Dose: 10 mg Clindamycin HCl (Cleocin -) 300 mg PO TID [facility] Last Admin: 09/13/17 09:27 Dose: 300 mg Donepezil HCl (Aricept -) 10 mg PO DAILY [facility] Last Admin: 09/13/17 09:26 Dose: 10 mg Dorzolamide HCl (Trusopt 2%) 1 drop OU BID [facility] Last Admin: 09/13/17 09:27 Dose: 1 drop Fluticasone Propionate (Flonase -) 2 spray NS DAILY [facility] Last Admin: 09/13/17 09:27 Dose: 2 sprays Heparin Sodium (Porcine) (Heparin -) 5,000 unit SQ BID [facility] Last Admin: 09/13/17 09:27 Dose: 5,000 unit Latanoprost (Xalatan 0.005% Eye Drops -) 1 drop OD HS [facility] Last Admin: 09/12/17 21:59 Dose: 1 drop Levofloxacin (Levaquin -) 250 mg PO DAILY@0600 [facility] Last Admin: 09/13/17 09:27 Dose: 250 mg Losartan Potassium (Cozaar -) 100 mg PO DAILY [facility] Last Admin: 09/13/17 09:26 Dose: 100 mg Metoprolol Tartrate (Lopressor -) 25 mg PO BID [facility] Last Admin: 09/13/17 09:26 Dose: 25 mg Mirtazapine (Remeron -) 15 mg PO HS [facility] Last Admin: 09/12/17 21:58 Dose: 15 mg Pantoprazole Sodium (Protonix Iv) 40 mg IVPUSH DAILY [facility] Last Admin: 09/13/17 09:27 Dose: 40 mg Risperidone (Risperdal -) 0.5 mg PO HS [facility] Last Admin: 09/12/17 21:58 Dose: 0.5 mg - Objective Vital Signs: Vital Signs Temperature 98.3 F 09/13/17 02:12 Pulse Rate 65 09/13/17 02:12 Respiratory Rate 18 09/13/17 02:12 Blood Pressure 140/58 09/13/17 02:12 O2 Sat by Pulse Oximetry (%) 96 09/12/17 22:00 Cardiovascular: Yes: Regular Rate and Rhythm, Murmur (Soft SM), S1, S2 Respiratory: Yes: Diminished Gastrointestinal: Yes: Normal Bowel Sounds, Soft. No: Tenderness Edema: No Labs: CBC, BMP 09/13/17 05:30 09/13/17 05:30 Problem List - Problems (1) Acute respiratory failure with hypoxia Code(s): J96.01 - ACUTE RESPIRATORY FAILURE WITH HYPOXIA (2) Demand ischemia Code(s): I24.8 - OTHER FORMS OF ACUTE ISCHEMIC HEART DISEASE (3) Dementia in Alzheimer's disease Code(s): G30.9 - ALZHEIMER'S DISEASE, UNSPECIFIED F02.80 - DEMENTIA IN OTH DISEASES CLASSD ELSWHR W/O BEHAVRL DISTURB (4) Diastolic dysfunction without heart failure Code(s): I51.9 - HEART DISEASE, UNSPECIFIED (5) Fever Code(s): R50.9 - FEVER, UNSPECIFIED Qualifiers: Fever type: unspecified Qualified Code(s): R50.9 - Fever, unspecified; R50.9 - Fever, unspecified (6) Gastroenteritis Code(s): K52.9 - NONINFECTIVE GASTROENTERITIS AND COLITIS, UNSPECIFIED (7) Hyperlipidemia Code(s): E78.5 - HYPERLIPIDEMIA, UNSPECIFIED Qualifiers: Hyperlipidemia type: pure hypercholesterolemia Qualified Code(s): E78.00 - Pure hypercholesterolemia, unspecified; E78.00 - Pure hypercholesterolemia, unspecified; E78.00 - Pure hypercholesterolemia, unspecified; E78.0 - Pure hypercholesterolemia (8) Hypertensive cardiovascular disease Code(s): I11.9 - HYPERTENSIVE HEART DISEASE WITHOUT HEART FAILURE Qualifiers: Heart failure presence: without heart failure Qualified Code(s): I11.9 - Hypertensive heart disease without heart failure; I11.9 - Hypertensive heart disease without heart failure; I11.9 - Hypertensive heart disease without heart failure (9) Pneumonia Code(s): J18.9 - PNEUMONIA, UNSPECIFIED ORGANISM Qualifiers: Pneumonia type: due to unspecified organism Laterality: right Lung location: lower lobe of lung Qualified Code(s): J18.1 - Lobar pneumonia, unspecified organism; J18.1 - Lobar pneumonia, unspecified organism; J18.1 - Lobar pneumonia, unspecified organism Assessment/Plan 1. Aspiration pneumonia 2. CAD with evidence of demand ischemic injury 3. Diastolic LV dysfunction with class I NYHA classification LV failure - compensated/euvolemic 4. Hypertension 5. Pulmonary hypertension 6. 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 Hypernatremia - improved 8. Hypokalemia - resolved PLAN: 1. Continue Lopressor 25 bid, Norvasc 5 qd, ASA 81 qd, Losartan 100 qd and Lipitor 10 qhs 2. Complete empiric antibiotic course, bronchodilator and O2 as needed 3. DVT and GI prophylaxis 4. Discharge planning Further plans are to follow Larry Velasco MD
--- NOTE | 2017-09-13 10:30 | PN ---
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, BULK CLERK - Note 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: Doing well with dys puree and nectar thick liquid. Staff reports good tolerance of diet without overt signs of dysphagia. Maintain HOB elevated after meals. Pending discharge. Continue modified diet upon discharge. If diet upgrade is considered, suggest repeat MBS as out pt before upgrade is performed. Case discussed with PNP.
[2017-09-13 11:24] VITALS: PULSE 64
--- NOTE | 2017-09-13 12:15 | PN ---
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, Physician History of Present Illness: pulmonary alert,nad,-sob,-congestion - Current Medication List Current Medications: Active Medications Acetaminophen (Tylenol Suppository -) [address] Q6H PRN PRN Reason: FEVER OR PAIN Last Admin: 09/10/17 21:24 Dose: 650 mg Amlodipine Besylate (Norvasc -) 5 mg PO DAILY [facility] Last Admin: 09/13/17 09:26 Dose: 5 mg Aspirin (Asa -) 81 mg PO DAILY [facility] Last Admin: 09/13/17 09:26 Dose: 81 mg Atorvastatin Calcium (Lipitor -) 10 mg PO HS [facility] Last Admin: 09/12/17 21:58 Dose: 10 mg Clindamycin HCl (Cleocin -) 300 mg PO TID [facility] Last Admin: 09/13/17 09:27 Dose: 300 mg Donepezil HCl (Aricept -) 10 mg PO DAILY [facility] Last Admin: 09/13/17 09:26 Dose: 10 mg Dorzolamide HCl (Trusopt 2%) 1 drop OU BID [facility] Last Admin: 09/13/17 09:27 Dose: 1 drop Fluticasone Propionate (Flonase -) 2 spray NS DAILY [facility] Last Admin: 09/13/17 09:27 Dose: 2 sprays Heparin Sodium (Porcine) (Heparin -) 5,000 unit SQ BID [facility] Last Admin: 09/13/17 09:27 Dose: 5,000 unit Latanoprost (Xalatan 0.005% Eye Drops -) 1 drop OD HS [facility] Last Admin: 09/12/17 21:59 Dose: 1 drop Levofloxacin (Levaquin -) 250 mg PO DAILY@0600 [facility] Last Admin: 09/13/17 09:27 Dose: 250 mg Losartan Potassium (Cozaar -) 100 mg PO DAILY [facility] Last Admin: 09/13/17 09:26 Dose: 100 mg Metoprolol Tartrate (Lopressor -) 25 mg PO BID [facility] Last Admin: 09/13/17 09:26 Dose: 25 mg Mirtazapine (Remeron -) 15 mg PO HS [facility] Last Admin: 09/12/17 21:58 Dose: 15 mg Pantoprazole Sodium (Protonix Iv) 40 mg IVPUSH DAILY [facility] Last Admin: 09/13/17 09:27 Dose: 40 mg Risperidone (Risperdal -) 0.5 mg PO HS [facility] Last Admin: 10/23/17 21:58 Dose: 0.5 mg - Objective Vital Signs: Vital Signs Temperature 98.3 F 09/13/17 02:12 Pulse Rate 64 09/13/17 11:23 Respiratory Rate 18 09/13/17 02:12 Blood Pressure 140/58 09/13/17 02:12 O2 Sat by Pulse Oximetry (%) 98 09/13/17 11:23 Constitutional: Yes: Well Nourished, Calm Eyes: Yes: WNL HENT: Yes: WNL Neck: Yes: WNL Cardiovascular: Yes: Regular Rate and Rhythm, S1, S2 Respiratory: Yes: Rales (few bibasilar rales) Gastrointestinal: Yes: Normal Bowel Sounds, Soft Extremities: Yes: WNL Edema: Yes Labs: CBC, BMP 09/13/17 05:30 09/13/17 05:30 INR, PTT INR 1.08 (0.82-1.09) 09/04/17 14:40 Problem List - Problems (1) Cellulitis Code(s): L03.90 - CELLULITIS, UNSPECIFIED (2) Dehydration Code(s): E86.0 - DEHYDRATION (3) Dementia in Alzheimer's disease Code(s): G30.9 - ALZHEIMER'S DISEASE, UNSPECIFIED F02.80 - DEMENTIA IN OTH DISEASES CLASSD ELSWHR W/O BEHAVRL DISTURB (4) Diastolic dysfunction without heart failure Code(s): I51.9 - HEART DISEASE, UNSPECIFIED (5) Gastroenteritis Code(s): K52.9 - NONINFECTIVE GASTROENTERITIS AND COLITIS, UNSPECIFIED (6) Hyperlipidemia Code(s): E78.5 - HYPERLIPIDEMIA, UNSPECIFIED Qualifiers: Hyperlipidemia type: pure hypercholesterolemia Qualified Code(s): E78.00 - Pure hypercholesterolemia, unspecified; E78.00 - Pure hypercholesterolemia, unspecified; E78.00 - Pure hypercholesterolemia, unspecified; E78.0 - Pure hypercholesterolemia (7) Acute respiratory failure with hypoxia Code(s): J96.01 - ACUTE RESPIRATORY FAILURE WITH HYPOXIA (8) Pneumonia Code(s): J18.9 - PNEUMONIA, UNSPECIFIED ORGANISM Qualifiers: Pneumonia type: due to unspecified organism Laterality: right Lung location: lower lobe of lung Qualified Code(s): J18.1 - Lobar pneumonia, unspecified organism; J18.1 - Lobar pneumonia, unspecified organism; J18.1 - Lobar pneumonia, unspecified organism Assessment/Plan IMP ACUTE HYPOXEMIC RESPIRATORY FAILURE IMPROVED LIKELY ASPIRATION PNEUMONIA ALTERED MENTAL STATUS SECONDARY TO TOXIC METABOLIC ENCEPHALOPATHY GASTROENTERITIS CELLULITIS ALZHEIMERS DEMENTIA PARKINSONS DEHYDRATION PLAN PO ANTIBIOTICS PER ID INHALED BRONCHODILATORS SUPPLEMENTAL O2 DR REBOLLAR
[2017-09-13 13:01] VITALS: BP 138/62; TEMP 98.4
== END 2017-09-13 13:38 | DRG 871 ==
LOC: JER 13:28 → JERBED 16:54 → OBSVTOIN 09-05 12:29 → J4S 09-05 21:06
PROVIDERS: ADMIT Internal Medicine; ATTEND Nurse Practitioner Family
DX: A41.9 Sepsis, unspecified organism (principal); J96.01 Acute respiratory failure with hypoxia; G92 Toxic encephalopathy; J69.0 Pneumonitis due to inhalation of food and vomit; I50.30 Unspecified diastolic (congestive) heart failure; E87.0 Hyperosmolality and hypernatremia; L03.115 Cellulitis of right lower limb; I24.8 Other forms of acute ischemic heart disease; E86.0 Dehydration; F02.80 Dementia in other diseases classified elsewhere, unspecified severity, without behavioral disturbance, psychotic disturbance, mood disturbance, and anxiety; K52.9 Noninfective gastroenteritis and colitis, unspecified; E78.5 Hyperlipidemia, unspecified; R41.82 Altered mental status, unspecified; G20 Parkinson's disease; E87.6 Hypokalemia; I11.0 Hypertensive heart disease with heart failure; I44.0 Atrioventricular block, first degree; I36.1 Nonrheumatic tricuspid (valve) insufficiency; I25.119 Atherosclerotic heart disease of native coronary artery with unspecified angina pectoris; I27.20 Pulmonary hypertension, unspecified; G30.9 Alzheimer's disease, unspecified
CPT/HCPCS: 36415; 36600; 70450-TC; 70551-TC; 71010-TC; 74230-TC; 80053; 81003; 81015; 82140; 82272; 82550; 82553; 82803; 83605; 83735; 84100; 84132; 84484; 85025; 85027; 85610; 85730; 86140; 86850; 86900; 86901; 87040; 87045; 87046; 87086; 87804; 87899; 90670; 92611-GN; 93005; 93010; 93306-TC; 93970-TC; 94640; 94667; 94761; 95816; 97116-GP; 97161-GP; 99285-25; G0378; J1644